=== PATIENT | female | born 1930 | race Caucasian/White ===

== ENCOUNTER → 2016-11-02 | Outpatient (CLI) | payer BC ==
[~2016-11-02] MED LIST: ALBU1AER9 INH; ASPI81TA28 PO; BECL0.3A INH; CALC-338 PO; COQ10100 PO; CRG3125 PO; FURO20TA PO; GLIM1TAB PO; LOVAZA PO; LSN40 PO; MULT-506 PO; OMEG1CAP71 PO; PRED1SUS3 OPR; WARF-246 PO; WARF-281 PO
[2016-11-02 13:33] LABS: ALT/SGPT 20 U/L (12-78); AST/SGOT 15 U/L (15-37); BLOOD UREA NITROGEN 19 mg/dl (7-18); BUN/CREATININE RATIO 22.4 (10-20); CALCIUM 8.8 mg/dl (8.5-10.1); CARBON DIOXIDE 32 mmol/L (21-32); CHLORIDE 104 mmol/L (98-107); CREATININE 0.85 mg/dl (0.60-1.20); GLUCOSE 105 mg/dl (70-99); POTASSIUM 4.1 mmol/L (3.5-5.1); SODIUM 142 mmol/L (136-145)
[2016-11-02 13:36] LABS: ALB/GLOB RATIO 1.1 (0.9-2); ALKALINE PHOSPHATASE 85 U/L (45-117); CHOLESTEROL 253 mg/dl (0-200); CHOLESTEROL/HDL RATIO 5.2; ESTIMATED AVERAGE GLUCOSE 151 mg/dl; HA1C FLAG Normal (Normal); HDL CHOLESTEROL 49 mg/dl; LDL CHOLESTEROL CALCULATED 171 mg/dl; TRIGLYCERIDES 163 mg/dl (0-150); VERY LOW DENSITY LIPOPROT CALC 33 mg/dl
--- NOTE | 2016-11-10 10:39 | CODING QUERY MEDICAL NECESSITY ---
SUPPORTING DIAGNOSIS NEEDED A supporting diagnosis is required for the test/procedure performed on this patient in order for us to be reimbursed by the patient's insurance. Please provide a supporting diagnosis for the following test/procedure listed below next to the test name along with your signature. *If there is no additional diagnosis for this patient that would support the following test/procedure please document that below next to the test/procedure. Test(s)/Procedure(s) that require a supporting diagnosis: DOS 11/02 * Hba1c DIAGNOSIS: Provider Signature: Date: Thank you Tanya Barnes Health Information Management Once completed, please kindly fax back to [phone] For questions please call [phone]
== END | disposition home or self-care (01) ==
LOC: C.LABMFLN 08:54
PROVIDERS: ATTEND Family Medicine
DX: I48.91 Unspecified atrial fibrillation (principal); I10 Essential (primary) hypertension; E78.5 Hyperlipidemia, unspecified; A04.7 Enterocolitis due to Clostridium difficile

== ENCOUNTER → 2017-03-06 | Outpatient (CLI) | payer BC ==
[2017-03-06 18:23] LABS: BLOOD UREA NITROGEN 15 mg/dl (7-18); BUN/CREATININE RATIO 21.8 (10-20); CALCIUM 9.4 mg/dl (8.5-10.1); CARBON DIOXIDE 29 mmol/L (21-32); CHLORIDE 107 mmol/L (98-107); GLUCOSE 108 mg/dl (70-99); POTASSIUM 4.4 mmol/L (3.5-5.1); SODIUM 141 mmol/L (136-145)
[2017-03-06 18:39] LABS: BASO % 0.4 %; BASO ABS # 0.02 K/uL (0-0.2); COMPLETE YES; EOS % 1.2 %; HEMATOCRIT 37.2 % (37-47); IG% 0.2 %; LYMPH % 20.6 %; LYMPH ABS # 1.04 K/uL (1.2-3.4); MEAN CELL VOLUME 89.6 fL (80-100); MEAN CORPUSCULAR HEMOGLOBIN 28.4 pg (25-34); MEAN CORPUSCULAR HGB CONC 31.7 g/dl (32-36); MEAN PLATELET VOLUME 10.1 fL (7.4-10.4); MONO % 7.3 %; NEUT % 70.3 %; PLATELET COUNT 277 K/uL (130-400); RED BLOOD COUNT 4.15 M/uL (4.2-5.4); WHITE BLOOD COUNT 5.04 K/uL (4.8-10.8)
== END | disposition home or self-care (01) ==
LOC: C.LABMFLN 12:32
PROVIDERS: ATTEND Family Medicine
DX: R19.7 Diarrhea, unspecified (principal)

== ENCOUNTER → 2017-03-14 | Outpatient (CLI) | payer BC ==
[2017-03-14 13:22] LABS: ALT/SGPT 23 U/L (12-78); AST/SGOT 15 U/L (15-37); BLOOD UREA NITROGEN 18 mg/dl (7-18); BUN/CREATININE RATIO 22.7 (10-20); CALCIUM 9.2 mg/dl (8.5-10.1); CARBON DIOXIDE 32 mmol/L (21-32); CHLORIDE 106 mmol/L (98-107); CREATININE 0.79 mg/dl (0.60-1.20); ESTIMATED AVERAGE GLUCOSE 137 mg/dl; GLUCOSE 102 mg/dl (70-99); HA1C FLAG Normal (Normal); POTASSIUM 4.3 mmol/L (3.5-5.1); SODIUM 141 mmol/L (136-145); TRIGLYCERIDES 124 mg/dl (0-150); VERY LOW DENSITY LIPOPROT CALC 25 mg/dl
[2017-03-14 13:23] LABS: ALB/GLOB RATIO 1.1 (0.9-2); ALKALINE PHOSPHATASE 98 U/L (45-117); CHOLESTEROL 225 mg/dl (0-200); CHOLESTEROL/HDL RATIO 4.2; HDL CHOLESTEROL 53 mg/dl; LDL CHOLESTEROL CALCULATED 147 mg/dl
[2017-03-14 13:28] LABS: BASO % 0.6 %; BASO ABS # 0.03 K/uL (0-0.2); COMPLETE YES; EOS % 2.1 %; HEMATOCRIT 36.9 % (37-47); IG% 0.2 %; LYMPH % 20.6 %; LYMPH ABS # 0.99 K/uL (1.2-3.4); MEAN CELL VOLUME 90.4 fL (80-100); MEAN CORPUSCULAR HEMOGLOBIN 29.2 pg (25-34); MEAN CORPUSCULAR HGB CONC 32.2 g/dl (32-36); MEAN PLATELET VOLUME 9.5 fL (7.4-10.4); MONO % 10.4 %; NEUT % 66.1 %; PLATELET COUNT 304 K/uL (130-400); RED BLOOD COUNT 4.08 M/uL (4.2-5.4); WHITE BLOOD COUNT 4.81 K/uL (4.8-10.8)
== END | disposition home or self-care (01) ==
LOC: C.LABMFLN 07:33
PROVIDERS: ATTEND Family Medicine
DX: I35.9 Nonrheumatic aortic valve disorder, unspecified (principal); I48.91 Unspecified atrial fibrillation; E11.40 Type 2 diabetes mellitus with diabetic neuropathy, unspecified

== ENCOUNTER → 2017-06-11 | Outpatient (CLI) | payer BC ==
[2017-06-11 12:47] LABS: BASO % 0.5 %; BASO ABS # 0.03 K/uL (0-0.2); COMPLETE YES; EOS % 1.4 %; HEMATOCRIT 33.7 % (37-47); IG% 0.2 %; LYMPH % 15.3 %; LYMPH ABS # 0.85 K/uL (1.2-3.4); MEAN CELL VOLUME 86.9 fL (80-100); MEAN CORPUSCULAR HEMOGLOBIN 27.8 pg (25-34); MEAN PLATELET VOLUME 9.8 fL (7.4-10.4); MONO % 9.2 %; NEUT % 73.4 %; PLATELET COUNT 276 K/uL (130-400); RED BLOOD COUNT 3.88 M/uL (4.2-5.4); WHITE BLOOD COUNT 5.54 K/uL (4.8-10.8)
== END | disposition home or self-care (01) ==
LOC: C.LABMFLN 13:59
PROVIDERS: ATTEND Family Medicine
DX: K92.2 Gastrointestinal hemorrhage, unspecified (principal); I48.91 Unspecified atrial fibrillation

== ENCOUNTER → 2017-07-18 | Outpatient (CLI) | payer BC ==
[2017-07-18 12:44] LABS: BASO % 0.9 %; BASO ABS # 0.04 K/uL (0-0.2); COMPLETE YES; EOS % 1.4 %; HEMATOCRIT 36.1 % (37-47); IG% 0.2 %; LYMPH % 20.6 %; MEAN CELL VOLUME 93.8 fL (80-100); MEAN CORPUSCULAR HEMOGLOBIN 29.1 pg (25-34); MEAN PLATELET VOLUME 9.8 fL (7.4-10.4); MONO % 12.1 %; NEUT % 64.8 %; PLATELET COUNT 271 K/uL (130-400); RED BLOOD COUNT 3.85 M/uL (4.2-5.4); WHITE BLOOD COUNT 4.37 K/uL (4.8-10.8)
[2017-07-18 13:22] LABS: ESTIMATED AVERAGE GLUCOSE 111 mg/dl; HA1C FLAG Normal (Normal)
[2017-07-18 13:27] LABS: ALT/SGPT 26 U/L (12-78); AST/SGOT 23 U/L (15-37); BLOOD UREA NITROGEN 16 mg/dl (7-18); BUN/CREATININE RATIO 22.2 (10-20); CALCIUM 9.2 mg/dl (8.5-10.1); CARBON DIOXIDE 31 mmol/L (21-32); CHLORIDE 105 mmol/L (98-107); CHOLESTEROL 154 mg/dl (0-200); CREATININE 0.74 mg/dl (0.60-1.20); GLUCOSE 95 mg/dl (70-99); POTASSIUM 4.6 mmol/L (3.5-5.1); SODIUM 141 mmol/L (136-145)
[2017-07-18 13:30] LABS: ALB/GLOB RATIO 1.1 (0.9-2); ALKALINE PHOSPHATASE 124 U/L (45-117); CHOLESTEROL/HDL RATIO 3.4; HDL CHOLESTEROL 45 mg/dl; LDL CHOLESTEROL CALCULATED 86 mg/dl; TRIGLYCERIDES 117 mg/dl (0-150); VERY LOW DENSITY LIPOPROT CALC 23 mg/dl
== END | disposition home or self-care (01) ==
LOC: C.LABMFLN 07:45
PROVIDERS: ATTEND Family Medicine
DX: E78.5 Hyperlipidemia, unspecified (principal); E11.40 Type 2 diabetes mellitus with diabetic neuropathy, unspecified; I25.10 Atherosclerotic heart disease of native coronary artery without angina pectoris

== ENCOUNTER → 2017-07-27 | Outpatient (CLI) | payer BC | END | disposition home or self-care (01) | LOC: C.LABMFLN 10:58 | PROVIDERS: ATTEND Family Medicine | DX: A04.72 Enterocolitis due to Clostridium difficile, not specified as recurrent (principal) ==

== ENCOUNTER → 2017-08-27 | Outpatient (CLI) | payer BC | LOC: C.LABMFLN 11:54 | PROVIDERS: ATTEND Family Medicine | DX: A04.72 Enterocolitis due to Clostridium difficile, not specified as recurrent (principal) ==

== ENCOUNTER → 2017-11-01 | Outpatient (CLI) | payer BC ==
[2017-11-01 13:09] LABS: BASO % 0.5 %; BASO ABS # 0.03 K/uL (0-0.2); EOS % 1.4 %; EOS ABS # 0.08 K/uL (0-0.5); HEMOGLOBIN 13.4 g/dL (12.0-16.0); LYMPH % 20.9 %; LYMPH ABS # 1.17 K/uL (1.2-3.4); MEAN CELL VOLUME 92.1 fL (80-100); MEAN CORPUSCULAR HEMOGLOBIN 29.4 pg (25-34); MEAN CORPUSCULAR HGB CONC 31.9 g/dl (32-36); MEAN PLATELET VOLUME 10.7 fL (7.4-10.4); MONO % 8.9 %; NEUT % 68.3 %; NEUT ABS # 3.83 K/uL (1.4-6.5); PLATELET COUNT 258 K/uL (130-400); RED CELL DISTRIBUTION WIDTH CV 13.7 % (11.5-14.5); WHITE BLOOD COUNT 5.61 K/uL (4.8-10.8)
[2017-11-01 13:44] LABS: HEMOGLOBIN A1C 5.9 % (4.5-5.6)
[2017-11-01 14:15] LABS: ALBUMIN 3.8 gm/dl (3.4-5.0); ALT/SGPT 17 U/L (12-78); BLOOD UREA NITROGEN 21 mg/dl (7-18); CALCIUM 9.5 mg/dl (8.5-10.1); CARBON DIOXIDE 32 mmol/L (21-32); CHOLESTEROL 172 mg/dl (0-200); CREATININE 0.72 mg/dl (0.60-1.20); GLUCOSE 110 mg/dl (70-99); POTASSIUM 4.6 mmol/L (3.5-5.1); SODIUM 140 mmol/L (136-145)
[2017-11-01 14:17] LABS: ALKALINE PHOSPHATASE 92 U/L (45-117); AST/SGOT 18 U/L (15-37); LDL CHOLESTEROL CALCULATED 100 mg/dl; TOTAL PROTEIN 6.7 gm/dl (6.4-8.2); TRANSFERRIN 256 mg/dl (200-360)
== END | disposition home or self-care (01) ==
LOC: C.LABMFLN 09:38
PROVIDERS: ATTEND Family Medicine
DX: I35.9 Nonrheumatic aortic valve disorder, unspecified (principal); I48.91 Unspecified atrial fibrillation; D50.9 Iron deficiency anemia, unspecified; J45.909 Unspecified asthma, uncomplicated; E11.40 Type 2 diabetes mellitus with diabetic neuropathy, unspecified

== ENCOUNTER 2017-11-18 06:06 | Inpatient (IN) | payer BC, OTHER ==
[2017-11-18] VITALS (9 sets, daily range): BP systolic 104–146; BP diastolic 63–77; PULSE 58–73; TEMP 36.4–36.8; O2SAT 93–100; Ht 152.4 cm; Wt 61.0 kg
[~2017-11-18] VITALS: Ht 152.4 cm; Wt 61.0 kg
[~2017-11-18 06:06] MED LIST changes: +AZIT-60 PO; +NYSS/ PO; +PRED10TA PO
[2017-11-18] MEDS ORDERED: ALBUT/IPRATROP 3MG/0.5MG NEB 3 ML VIAL ONE (06:12)
[2017-11-18] MEDS ORDERED: ALBUT/IPRATROP 3MG/0.5MG NEB 3 ML VIAL INH STA ×2 (06:29→07:03)
[2017-11-18 06:46] LABS: BASO % 0.2 %; BASO ABS # 0.02 K/uL (0-0.2); HEMATOCRIT 40.6 % (37-47); HEMOGLOBIN 13.6 g/dL (12.0-16.0); IG# 0.02 K/uL (0.00-0.02); LYMPH % 8.4 %; LYMPH ABS # 0.68 K/uL (1.2-3.4); MEAN CELL VOLUME 90.2 fL (80-100); MEAN CORPUSCULAR HEMOGLOBIN 30.2 pg (25-34); MEAN CORPUSCULAR HGB CONC 33.5 g/dl (32-36); MEAN PLATELET VOLUME 10.1 fL (7.4-10.4); MONO % 8.5 %; MONO ABS # 0.69 K/uL (0.11-0.59); NEUT % 82.7 %; NEUT ABS # 6.67 K/uL (1.4-6.5); PLATELET COUNT 228 K/uL (130-400); RED CELL DISTRIBUTION WIDTH CV 13.5 % (11.5-14.5); RED CELL DISTRIBUTION WIDTH SD 45.2 fL (36.4-46.3); WHITE BLOOD COUNT 8.08 K/uL (4.8-10.8)
[2017-11-18] MEDS ORDERED: VNTHFA/IN INH (06:47)
[2017-11-18] MEDS ORDERED: WARF-284 PO (06:48)
[2017-11-18 06:52] LABS: CREATININE 0.97 mg/dl (0.60-1.20)
[2017-11-18] MEDS ORDERED: CARV6.25 PO (06:52)
[2017-11-18] MEDS ORDERED: CALC-5 PO (06:52)
[2017-11-18] MEDS ORDERED: WARF-237 PO (06:52)
[2017-11-18 06:53] LABS: ALBUMIN 3.9 gm/dl (3.4-5.0); CALCIUM 9.5 mg/dl (8.5-10.1)
[2017-11-18] MEDS ORDERED: MULT-513 PO (06:53)
[2017-11-18] MEDS ORDERED: COEN100C2 PO (06:53)
[2017-11-18] MEDS ORDERED: IPRASOL4 INH (06:54)
[2017-11-18] MEDS ORDERED: MOME16.7 PO (06:54)
[2017-11-18] MEDS ORDERED: SACC250C PO (06:55)
[2017-11-18 07:03] LABS: PTT PATIENT 40.4 SECONDS (21.0-31.0)
[2017-11-18] MEDS ORDERED: ACETAMINOPHEN 500 MG TAB PO STA (07:03)
[2017-11-18] MEDS ORDERED: METHYLPREDNISOLONE 125 MG VIAL IV STA (07:03)
[2017-11-18 07:04] LABS: TOTAL PROTEIN 8.1 gm/dl (6.4-8.2)
--- NOTE | 2017-11-18 07:10 | DIAGNOSTIC IMAGING REPORT ---
CHEST ONE VIEW PORTABLE CLINICAL HISTORY: Respiratory difficulty COMPARISON STUDY: 12/04/2012 FINDINGS: There are postsurgical changes of a midline sternotomy and by valvular replacement. 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 The heart is enlarged. There is diffuse elevation of the interstitium consistent with mild congestive failure/fluid overload. There is no lobar consolidation.[ IMPRESSION: Cardiomegaly and radiographic evidence of mild congestive failure/fluid overload. Electronically signed by: Du Campbell M.D. 11/18/2017 7:09 AM Dictated Date/Time: 11/18/2017 7:08 AM
[2017-11-18 07:27] LABS: INR 3.6 (0.9-1.1)
[2017-11-18] MEDS ORDERED: LEVAQUIN 750MG / 150ML D5W IV STA (07:33)
[2017-11-18] MEDS ORDERED: SODIUM CHLORIDE 0.9% 1000ML 1,000 ML IV SCH (07:38)
[2017-11-18] MEDS ORDERED: ACETAMINOPHEN 325 MG TAB PO PRN (07:45)
[2017-11-18] MEDS ORDERED: ONDANSETRON INJ 2 MG/ML 2 ML VIAL IV PRN (07:45)
[2017-11-18] MEDS ORDERED: ALBUT/IPRATROP 3MG/0.5MG NEB 3 ML VIAL INH PRN (07:45)
[2017-11-18] MEDS ORDERED: ALBUTEROL HFA 8 GM INHALER INH PRN (07:45)
[2017-11-18] MEDS ORDERED: ALBUT/IPRATROP 3MG/0.5MG NEB 3 ML VIAL NEB PRN (07:45)
[2017-11-18] MEDS ORDERED: MAGNESIUM HYDROXIDE SUSP 30 ML UDC PO PRN (07:45)
[2017-11-18] MEDS ORDERED: ALUMINUM/MAGNESIUM/SIMETH (MAALOX MAX) 30 ML UDC PO PRN (07:45)
[2017-11-18 08:16] LABS: INFLUENZA B ANTIGEN Neg for Influ B (NEG)
[2017-11-18] MEDS ORDERED: FUROSEMIDE 40 MG/4 ML VIAL ONE (08:51)
--- NOTE | 2017-11-18 09:03 | EMERGENCY ROOM VISIT NOTE ---
History Report prepared by Luís: Rufina Murray Under the Supervision of: Dr. Xiang Chase M.D. First contact with patient: 06:38 Chief Complaint: RESPIRATORY PROBLEMS Stated Complaint: BREATHING DIFFICULTY Nursing Triage Summary: Patient arrived ALS for evaluation of shortness of breath. Patient was seen at her PCP and diagnosed with pneumonia. Patient given Zithromax and prednisone. Patient has albuterol inhaler and nebulizers at home. Hx asthma. Patient woke up today with increased shortness of breath. Patient has productive cough with yellow sputum. History of Present Illness The patient is an 87 year old female who presents to the Emergency Room with complaints of worsening SOB starting last week. She presents to the ED by EMS. The patient was seen by her PCP 3 days ago and was started on prednisone and Zithromax for possible pneumonia. She had a nebulizer treatment which helped her symptoms. She woke up this morning with worsened SOB. She is having a productive cough. Her abdomen feels bloated. She has a history of asthma and C diff. 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 She is not on oxygen at home. She has not taken any Tylenol for her fever. She has a history of heart valve replacement. Pt denies LOC, headache, chills, diaphoresis, visual changes, neck pain, chest pain, nausea, vomiting, abdominal pain, back pain, melena, hematochezia, urinary symptoms, numbness, weakness, lymphadenopathy, rash, or other complaints. Source of History: patient Onset: last week Position: other (breathing) Quality: other (SOB) Timing: worsening Modifying Factors (Relieving): other (nebulizer treatment) Associated Symptoms: + fevers, + cough Note: Pt reports abdominal bloating. Review of Systems See HPI for pertinent positives and negatives. A total of ten systems were reviewed and were otherwise negative. Past Medical & Surgical Medical Problems: (1) Acute respiratory failure with hypoxia (2) C. difficile diarrhea Family History Noncontributory secondary to age. Social History Smoking Status: Never Smoker Marital Status: Housing Status: lives with significant other Occupation Status: retired Current/Historical Medications Scheduled Azithromycin (Zithromax), MG PO UD Calcium-Magnesium W/ Vitamin D (Calcium 500), 500 MG PO DAILY Carvedilol (Coreg), 6.25 MG PO BID Coenzyme Q10 (Ubidecarenone) (Coenzyme Q-10), 100 MG PO DAILY Furosemide (Lasix), 20 MG PO QAM Lisinopril (Lisinopril), 40 MG PO QAM Mometasone Furoate (Inhalation (Asmanex Hfa), 1 PUFF PO BID Multivitamins/Minerals (Mvi With Minerals), 1 TAB PO DAILY Nystatin (Nystatin Suspension), 1 TSP PO QID Prednisone (Prednisone), MG PO UD Saccharomyces Boulardii (Florastor), 250 MG PO AC Warfarin Sodium (Warfarin Sodium), 7.5 MG PO DAILY Scheduled PRN Albuterol Hfa (Ventolin Hfa), 2 PUFFS INH Q4 PRN for SOB/Wheezing Ipratropium-Albuterol (Duoneb), 1 TREATMENT INH QID PRN for SOB/Wheezing Allergies Coded Allergies: Heparin (Verified Allergy, Severe, hx HIT 2004, 11/18/17) Atorvastatin (Verified Adverse Reaction, Severe, diarrhea and leg cramps, 11/18/17) Metformin (Verified Adverse Reaction, Severe, diarrhea, 11/18/17) Pitavastatin (Verified Adverse Reaction, Severe, joint pain, diarrhea, 11/18) Ezetimibe (Verified Adverse Reaction, Unknown, myalgias, increased LFT, 05/27) Simvastatin (Verified Adverse Reaction, Unknown, myalgias, increased LFTs , 03/22/15) Physical Exam Vital Signs Date Time Temp Pulse Resp B/P (MAP) Pulse Ox O2 Delivery O2 Flow Rate FiO2 11/18/17 08:49 60 16 131/65 94 Room Air 11/18/17 08:03 100 Nasal Cannula 3.0 11/18/17 08:01 65 11/18/17 08:00 60 16 154/77 93 Nasal Cannula 3.0 11/18/17 06:37 99 Nasal Cannula 3.0 11/18/17 06:37 62 22 178/84 100 Nasal Cannula 3.0 11/18/17 06:19 88 Room Air 11/18/17 06:18 87 Room Air 11/18/17 06:18 38.0 109 26 174/88 87 Room Air 11/18/17 06:13 96 Physical Exam GENERAL: Awake, alert, well-appearing, in no distress HENT: Normocephalic, atraumatic. Oropharynx unremarkable. EYES: Normal conjunctiva. Sclera non-icteric. NECK: Supple. No nuchal rigidity. FROM. No masses. RESPIRATORY: Clear to auscultation. Bilateral wheezes. No rales. Normal respiratory effort. CARDIAC: Normal rate. Normal rhythm. No murmurs. No rubs. Extremities warm and well perfused. Pulses equal. No JVD. GI: Soft, non-distended. No tenderness to palpation. No rebound or guarding. No masses. RECTAL: Deferred. MUSCULOSKELETAL: Atraumatic. Chest examination reveals no tenderness. The back is symmetrical on inspection without obvious abnormality. There is no CVA tenderness to palpation. No joint edema. LOWER EXTREMITIES: Calves are equal size bilaterally and non-tender. Trace edema. No discoloration. NEURO: Normal sensorium. No sensory or motor deficits noted. SKIN: No rash or jaundice noted. Medical Decision & Procedures ER Provider Diagnostic Interpretation: Radiology results as stated below per my review and radiologist interpretation: CHEST ONE VIEW PORTABLE CLINICAL HISTORY: Respiratory difficulty COMPARISON STUDY: 12/04/2012 FINDINGS: There are postsurgical changes of a midline sternotomy and by valvular replacement. 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 The heart is enlarged. There is diffuse elevation of the interstitium consistent with mild congestive failure/fluid overload. There is no lobar consolidation.[ IMPRESSION: Cardiomegaly and radiographic evidence of mild congestive failure/fluid overload. Electronically signed by: Du Campbell M.D. 11/18/2017 7:09 AM Dictated Date/Time: 11/18/2017 7:08 AM Laboratory Results 11/18/17 06:24 Red Blood Count 4.50, Mean Corpuscular Volume 90.2, Mean Corpuscular Hemoglobin 30.2, Mean Corpuscular Hemoglobin Concent 33.5, Mean Platelet Volume 10.1, Neutrophils (%) (Auto) 82.7, Lymphocytes (%) (Auto) 8.4, Monocytes (%) (Auto) 8.5, Eosinophils (%) (Auto) 0.0, Basophils (%) (Auto) 0.2, Neutrophils # (Auto) 6.67, Lymphocytes # (Auto) 0.68, Monocytes # (Auto) 0.69, Eosinophils # (Auto) 0.00, Basophils # (Auto) 0.02 11/18/17 06:24 Test 11/18/17 06:24 11/18/17 06:27 11/18/17 07:20 White Blood Count 8.08 K/uL (4.8-10.8) Red Blood Count 4.50 M/uL (4.2-5.4) Hemoglobin 13.6 g/dL (12.0-16.0) Hematocrit 40.6 % (37-47) Mean Corpuscular Volume 90.2 fL (80-100) Mean Corpuscular Hemoglobin 30.2 pg (25-34) Mean Corpuscular Hemoglobin Concent 33.5 g/dl (32-36) Platelet Count 228 K/uL (130-400) Mean Platelet Volume 10.1 fL (7.4-10.4) Neutrophils (%) (Auto) 82.7 % Lymphocytes (%) (Auto) 8.4 % Monocytes (%) (Auto) 8.5 % Eosinophils (%) (Auto) 0.0 % Basophils (%) (Auto) 0.2 % Neutrophils # (Auto) 6.67 K/uL (1.4-6.5) Lymphocytes # (Auto) 0.68 K/uL (1.2-3.4) Monocytes # (Auto) 0.69 K/uL (0.11-0.59) Eosinophils # (Auto) 0.00 K/uL (0-0.5) Basophils # (Auto) 0.02 K/uL (0-0.2) RDW Standard Deviation 45.2 fL (36.4-46.3) RDW Coefficient of Variation 13.5 % (11.5-14.5) Immature Granulocyte % (Auto) 0.2 % Immature Granulocyte # (Auto) 0.02 K/uL (0.00-0.02) Prothrombin Time 36.9 SECONDS (9.0-12.0) Prothromb Time International Ratio 3.6 (0.9-1.1) Activated Partial Thromboplast Time 40.4 SECONDS (21.0-31.0) Partial Thromboplastin Ratio 1.6 Anion Gap 6.0 mmol/L (3-11) Est Creatinine Clear Calc Drug Dose 36.3 ml/min Estimated GFR () 61.7 Estimated GFR (Non- 53.3 BUN/Creatinine Ratio 28.5 (10-20) Calcium Level 9.5 mg/dl (8.5-10.1) Magnesium Level 2.1 mg/dl (1.8-2.4) Total Bilirubin 0.5 mg/dl (0.2-1) Direct Bilirubin 0.2 mg/dl (0-0.2) Aspartate Amino Transf (AST/SGOT) 29 U/L (15-37) Alanine Aminotransferase (ALT/SGPT) 26 U/L (12-78) Alkaline Phosphatase 131 U/L (45-117) Total Protein 8.1 gm/dl (6.4-8.2) Albumin 3.9 gm/dl (3.4-5.0) Lipase 75 U/L (73-393) Thyroid Stimulating Hormone (TSH) 1.950 uIu/ml (0.300-4.500) Bedside Lactic Acid Venous 0.89 mmol/L (0.90-1.70) Influenza Type A Antigen Neg for Influ A (NEG) Influenza Type B Antigen Neg for Influ B (NEG) Laboratory results reviewed by me Medications Administered Medications (Trade) Dose Ordered Sig/Ariel Route Start Time Stop Time Status Last Admin Dose Admin Albuterol/ Ipratropium (Duoneb) 3 ml STK-MED ONCE .ROUTE 11/18/17 06:12 11/18/17 06:13 DC 11/18/17 06:12 3 ML Albuterol/ Ipratropium (Duoneb) 3 ml NOW STAT INH 11/18/17 07:03 11/18/17 07:04 DC 11/18/17 07:18 3 ML Methylprednisolone Sodium Succinate (Solu-Medrol IV) 125 mg NOW STAT IV 11/18/17 07:03 11/18/17 07:04 DC 11/18/17 07:19 125 MG Acetaminophen (Tylenol Tab) 1,000 mg NOW STAT PO 11/18/17 07:03 11/18/17 07:04 DC 11/18/17 07:19 1,000 MG Levofloxacin (Levaquin / D5W) 750 mg NOW STAT IV 11/18/17 07:33 11/18/17 07:34 DC 11/18/17 08:57 750 MG Furosemide (Lasix Inj) 40 mg STK-MED ONCE .ROUTE 11/18/17 08:51 11/18/17 08:52 DC 11/18/17 08:53 40 MG ECG Per My Interpretation Indication: SOB/dyspnea Rate (beats per minute): 65 Rhythm: other (paced rhythm) Findings: no acute ischemic change, no ectopy ED Course 0612: Duoneb 3 ml INH. 0658: The patient was evaluated in room A3. A complete history and physical exam was performed. 0703: Acetaminophen 1000 mg PO, Solu-Medrol IV 125 mg IV, Duoneb 3 ml INH. 0733: Levofloxacin 750 mg IV. 0737: I discussed the patient's case with Dr. Leo [facility] [place] hospitalist. The patient will be evaluated for further treatment and disposition. 0738: Upon reexamination, the patient was resting comfortably. I discussed the test results and treatment plan with her. The patient will be evaluated for further management. Medical Decision Prior records/ancillary studies reviewed. Triage Nursing notes reviewed and agree them. The patient's history was concerning for shortness of breath. Differential diagnosis: Etiologies such as pneumonia, COPD, reactive airway disease, CHF, cardiac ischemia, pulmonary embolism, pneumothorax, musculoskeletal, infections, gastrointestinal, as well as others were entertained. Physical examination: As above. The patient was requiring supplemental oxygen. She was febrile. ER treatment provided: Tylenol DuoNeb 2 Solu-Medrol IV level Supplemental oxygen On reassessment the patient felt better. Diagnostic interpretation by me: The electrocardiogram was negative for pathologic change. The labs revealed an unremarkable CBC and chemistry panel. Cardiac markers negative. INR slightly supratherapeutic. The patient has a negative influenza test. Imaging studies: Chest x-ray as above. The patient has fever, wheezing, cough and is hypoxic. She may have a partially treated pneumonia or pneumonitis. IV Levaquin was given. Bronchodilators and steroids were administered. She will need further treatment in the hospital. Consultation: A consultation was placed with the hospitalist. The case was discussed and diagnostics were reviewed. The patient was evaluated in the ER for further treatment. Medication Reconcilliation Current Medication List: was personally reviewed by me Blood Pressure Screening Patient's blood pressure: Elevated blood pressure Blood pressure disposition: Referred to PCP Consults Time Called: 0735 Consulting Physician: Dr. Leo [facility] [place] hospitalist Returned Call: 0737 Discussed the patient's case. The patient will be evaluated for further treatment and disposition. Impression Primary Impression: Hypoxia Additional Impressions: SOB (shortness of breath) Fever Reactive airway disease Scribe Attestation The scribe's documentation has been prepared under my direction and personally reviewed by me in its entirety. I confirm that the note above accurately reflects all work, treatment, procedures, and medical decision making performed by me. Departure Information Dispostion Being Evaluated By Hospitalist Referrals Eusebio Gipson M.D. (PCP) Patient Instructions My [facility] Problem Qualifiers
[2017-11-18] MEDS ORDERED: FUROSEMIDE INJ 40 MG in SYRINGE 0 ML IV ONE (09:21)
--- NOTE | 2017-11-18 09:34 | History and Physical ---
History & Physical Date & Time of Service: Nov 18, 2017 at 09:26 Chief Complaint: Acute Respiratory Failure With Hypoxia Primary Care Physician: Eusebio Gipson M.D. History of Present Illness 87-year-old female presents with acute hypoxic respiratory failure. She is a history of asthma/COPD and she was attempted to be treated as an outpatient with oral steroids and antibiotics. 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 The patient's had a productive cough and shortness of breath for approximately 1-2 weeks she is already fevers at home when she presented this morning she had had a worsened episode of respiratory distress and she was defined to be hypoxic on presentation there is no overt infiltrates on her chest x-ray but she does have some bilateral congestive change she is improved with oxygen supplementation and nebulized medications in the ER was given dose of levofloxacin Past Medical/Surgical History Medical Problems: (1) Acute respiratory failure with hypoxia (2) C. difficile diarrhea 3. Atrial fibrillation 4. 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 Permanent pacemaker 6. H IT 7. Appendectomy 8. Cholecystectomy 9. Oophorectomy 10. Diet-controlled diabetes 11. Hypertension 12. Dyslipidemia 13. Previous history of subdural hematoma 14. Previous history of GI bleed Social History Smoking Status: Never Smoker Smokeless Tobacco Use: No Alcohol Use: none Drug Use: none Marital Status: Occupational Status: retired Immunizations History of Influenza Vaccine: Yes Influenza Vaccine Date: May 21, 2009 History of Tetanus Vaccine?: Yes History of Pneumococcal: Yes Pneumococcal Date: May 25, 2004 History of Hepatitis B Vaccine: No Allergies Coded Allergies: Heparin (Verified Allergy, Severe, hx HIT 2004, 11/18/17) Atorvastatin (Verified Adverse Reaction, Severe, diarrhea and leg cramps, 11/18/17) Metformin (Verified Adverse Reaction, Severe, diarrhea, 11/18/17) Pitavastatin (Verified Adverse Reaction, Severe, joint pain, diarrhea, 11/18) Ezetimibe (Verified Adverse Reaction, Unknown, myalgias, increased LFT, 05/27) Simvastatin (Verified Adverse Reaction, Unknown, myalgias, increased LFTs , 03/22/15) Home Medications Scheduled Azithromycin (Zithromax), MG PO UD Calcium-Magnesium W/ Vitamin D (Calcium 500), 500 MG PO DAILY Carvedilol (Coreg), 6.25 MG PO BID Coenzyme Q10 (Ubidecarenone) (Coenzyme Q-10), 100 MG PO DAILY Furosemide (Lasix), 20 MG PO QAM Lisinopril (Lisinopril), 40 MG PO QAM Mometasone Furoate (Inhalation (Asmanex Hfa), 1 PUFF PO BID Multivitamins/Minerals (Mvi With Minerals), 1 TAB PO DAILY Nystatin (Nystatin Suspension), 1 TSP PO QID Prednisone (Prednisone), MG PO UD Saccharomyces Boulardii (Florastor), 250 MG PO AC Warfarin Sodium (Warfarin Sodium), 7.5 MG PO DAILY Scheduled PRN Albuterol Hfa (Ventolin Hfa), 2 PUFFS INH Q4 PRN for SOB/Wheezing Ipratropium-Albuterol (Duoneb), 1 TREATMENT INH QID PRN for SOB/Wheezing Review of Systems ROS: well nourished well developed. No double vision blurry vision No problems with speech or swallowing No palpitations, chest pain or pressure Patient's markedly short of breath with a loose productive cough No abdominal pain nausea vomiting diarrhea changes in appetite or weight No burning urine urine frequency or changes in color No focal joint pain or muscle pain No skin rashes or oral lesions No unusual bruising or bleeding No focused back pain or numbness or loss of strength No changes in memory or confusion Physical Exam Vital Signs Date Time Temp Pulse Resp B/P (MAP) Pulse Ox O2 Delivery O2 Flow Rate FiO2 11/18/17 08:49 60 16 131/65 94 Room Air 11/18/17 08:03 100 Nasal Cannula 3.0 11/18/17 08:01 65 11/18/17 08:00 60 16 154/77 93 Nasal Cannula 3.0 11/18/17 06:37 99 Nasal Cannula 3.0 11/18/17 06:37 62 22 178/84 100 Nasal Cannula 3.0 11/18/17 06:19 88 Room Air 11/18/17 06:18 87 Room Air 11/18/17 06:18 38.0 109 26 174/88 87 Room Air 11/18/17 06:13 96 General Appearance: WD/WN, + moderate distress Head: normocephalic, atraumatic Eyes: normal inspection, sclerae normal ENT: hearing grossly normal, pharynx normal Neck: supple, no JVD Respiratory/Chest: chest non-tender, + decreased breath sounds, + accessory muscle use, + wheezing Cardiovascular: regular rate, rhythm (Although history of atrial fibrillation) , + systolic murmur Abdomen/GI: normal bowel sounds, non tender, soft Back: no CVA tenderness, normal range of motion Extremities/Musculoskelatal: normal inspection, no calf tenderness, no pedal edema Neurologic/Psych: alert, oriented x 3 Skin: normal color, warm/dry, no rash Diagnostics Laboratory Results Results Past 24 Hours Test 11/18/17 06:24 11/18/17 06:27 11/18/17 07:20 Range/Units White Blood Count 8.08 4.8-10.8 K/uL Red Blood Count 4.50 4.2-5.4 M/uL Hemoglobin 13.6 12.0-16.0 g/dL Hematocrit 40.6 37-47 % Mean Corpuscular Volume 90.2 80-100 fL Mean Corpuscular Hemoglobin 30.2 25-34 pg Mean Corpuscular Hemoglobin Concent 33.5 32-36 g/dl Platelet Count 228 130-400 K/uL Mean Platelet Volume 10.1 7.4-10.4 fL Neutrophils (%) (Auto) 82.7 % Lymphocytes (%) (Auto) 8.4 % Monocytes (%) (Auto) 8.5 % Eosinophils (%) (Auto) 0.0 % Basophils (%) (Auto) 0.2 % Neutrophils # (Auto) 6.67 1.4-6.5 K/uL Lymphocytes # (Auto) 0.68 1.2-3.4 K/uL Monocytes # (Auto) 0.69 0.11-0.59 K/uL Eosinophils # (Auto) 0.00 0-0.5 K/uL Basophils # (Auto) 0.02 0-0.2 K/uL RDW Standard Deviation 45.2 36.4-46.3 fL RDW Coefficient of Variation 13.5 11.5-14.5 % Immature Granulocyte % (Auto) 0.2 % Immature Granulocyte # (Auto) 0.02 0.00-0.02 K/uL Prothrombin Time 36.9 9.0-12.0 SECONDS Prothromb Time International Ratio 3.6 0.9-1.1 Activated Partial Thromboplast Time 40.4 21.0-31.0 SECONDS Partial Thromboplastin Ratio 1.6 Sodium Level 135 136-145 mmol/L Potassium Level 4.0 3.5-5.1 mmol/L Chloride Level 99 98-107 mmol/L Carbon Dioxide Level 30 21-32 mmol/L Anion Gap 6.0 3-11 mmol/L Blood Urea Nitrogen 28 7-18 mg/dl Creatinine 0.97 0.60-1.20 mg/dl Est Creatinine Clear Calc Drug Dose 36.3 ml/min Estimated GFR () 61.7 Estimated GFR (Non- 53.3 BUN/Creatinine Ratio 28.5 10-20 Random Glucose 85 70-99 mg/dl Calcium Level 9.5 8.5-10.1 mg/dl Magnesium Level 2.1 1.8-2.4 mg/dl Total Bilirubin 0.5 0.2-1 mg/dl Direct Bilirubin 0.2 0-0.2 mg/dl Aspartate Amino Transf (AST/SGOT) 29 15-37 U/L Alanine Aminotransferase (ALT/SGPT) 26 12-78 U/L Alkaline Phosphatase 131 45-117 U/L Total Protein 8.1 6.4-8.2 gm/dl Albumin 3.9 3.4-5.0 gm/dl Lipase 75 73-393 U/L Thyroid Stimulating Hormone (TSH) 1.950 0.300-4.500 uIu/ml Bedside Lactic Acid Venous 0.89 0.90-1.70 mmol/L Influenza Type A Antigen Neg for Influ A NEG Influenza Type B Antigen Neg for Influ B NEG Microbiology Results 11/18/17 Blood Culture, Received Pending 11/18/17 Blood Culture, Received Pending other (: Cardiomegaly and radiographic evidence of mild congestive) other (Atrially sensed ventricularly paced rhythm) Impression Assessment and Plan 87-year-old with acute and chronic respiratory failure now with hypoxia For the hypoxia show supplemental oxygen, for her chronic respiratory failure now with acute phase we will have nebulized medications including formoterol, duo nebs and she will of intravenous steroids For possibility of concurrent bronchitis levofloxacin will be continued For the possibility of acute on chronic diastolic heart failure due to her valvular heart disease she will be given a dose of intravenous Lasix and then continue with her usual oral Lasix as well as carvedilol and lisinopril For diet-controlled diabetes as she is now having intravenous steroids will have insulin sliding scale and diabetic diet For anticoagulation due to atrial fibrillation her INR is elevated on presentation will hold her warfarin recheck and follow it restart when appropriate For his recurrent C. difficile infection there is no active diarrhea at this time will continue her Florastor DVT prevention is her INR being elevated and mechanical means Advanced Directives Existing Living Will: Yes Existing Power of Car Painter: Yes Resuscitation Status VTE Prophylaxis Will order VTE Prophylaxis: Yes
[2017-11-18] MEDS: CEROVITE ADV FORMULA TAB PO SCH (10:00)
[2017-11-18] MEDS ORDERED: LEVOFLOXACIN CONSULT ACTIVE PRN (12:00)
[2017-11-18] MEDS: CARVEDILOL 6.25 MG TAB PO SCH ×2 (12:24→21:07)
[2017-11-18] MEDS: LISINOPRIL 40 MG TAB PO SCH (12:24)
[2017-11-18] MEDS: SACCHAROMYCES BOUL (FLORASTOR) 250 MG CAP PO SCH ×2 (12:25→17:08)
[2017-11-18] MEDS: NYSTATIN SUSP 500,000 U/5 ML UDC PO SCH ×3 (12:29→21:07)
[2017-11-18] MEDS ORDERED: NYSTATIN SUSP 500,000 U/5 ML UDC PO SCH (13:00)
[2017-11-18] MEDS: INSULIN ASPART 100 UNITS/ML 3 ML PEN SC SCH ×3 (13:46→21:11)
[2017-11-18] MEDS: FORMOTEROL FUMA NEBULIZER SOLN 20 MCG/2 ML VIAL INH SCH (19:12)
[2017-11-18] MEDS: METHYLPREDNISOLONE IV 40 MG in SYRINGE 0 ML IV SCH (21:06)
[2017-11-19] VITALS (9 sets, daily range): BP systolic 136–174; BP diastolic 67–81; PULSE 56–68; TEMP 36.3–36.9; O2SAT 91–100
[2017-11-19 04:55] LABS: HEMATOCRIT 36.6 % (37-47); HEMOGLOBIN 12.1 g/dL (12.0-16.0); MEAN CELL VOLUME 89.7 fL (80-100); MEAN CORPUSCULAR HEMOGLOBIN 29.7 pg (25-34); MEAN CORPUSCULAR HGB CONC 33.1 g/dl (32-36); MEAN PLATELET VOLUME 10.3 fL (7.4-10.4); PLATELET COUNT 218 K/uL (130-400); RED CELL DISTRIBUTION WIDTH CV 13.4 % (11.5-14.5); RED CELL DISTRIBUTION WIDTH SD 44.4 fL (36.4-46.3)
[2017-11-19 05:17] LABS: CALCIUM 8.8 mg/dl (8.5-10.1); CREATININE 1.04 mg/dl (0.60-1.20); POTASSIUM 4.2 mmol/L (3.5-5.1)
[2017-11-19 05:18] LABS: INR 3.8 (0.9-1.1)
[2017-11-19] MEDS: SACCHAROMYCES BOUL (FLORASTOR) 250 MG CAP PO SCH ×3 (06:23→17:23)
[2017-11-19] MEDS: FORMOTEROL FUMA NEBULIZER SOLN 20 MCG/2 ML VIAL INH SCH ×2 (07:26→19:12)
[2017-11-19] MEDS: LISINOPRIL 40 MG TAB PO SCH (08:17)
[2017-11-19] MEDS: FUROSEMIDE 20 MG TAB PO SCH (08:17)
[2017-11-19] MEDS: NYSTATIN SUSP 500,000 U/5 ML UDC PO SCH ×4 (08:17→21:14)
[2017-11-19] MEDS: METHYLPREDNISOLONE IV 40 MG in SYRINGE 0 ML IV SCH ×2 (08:18→21:16)
[2017-11-19] MEDS: INSULIN ASPART 100 UNITS/ML 3 ML PEN SC SCH ×4 (08:18→21:14)
[2017-11-19] MEDS: CARVEDILOL 6.25 MG TAB PO SCH ×2 (08:19→21:00)
[2017-11-19] MEDS: CEROVITE ADV FORMULA TAB PO SCH (08:20)
--- NOTE | 2017-11-19 11:40 | Hospitalist Progress Note ---
Hospitalist Progress Note Date of Service Nov 19, 2017. (No Wang ., PA-C) Subjective Pt evaluation today including: conversation w/ patient, physical exam, chart review, lab review, review of studies, review of inpatient medication list Pain: None PO Intake: Tolerating PO diet Voiding: no voiding problems Patient reports feeling better. She is still on supplemental oxygen, although she has been weaning down. She does not wear oxygen at home. She reports a cough that is now nonproductive with associated wheezing. She denies any dysuria. She has a h/o C. diff and is currently on Levaquin but denies any diarrhea so far. The patient denies fevers, chills, sweats, chest pain, palpitations, claudication, shortness of breath, nausea, vomiting, abdominal pain, dysuria, hematuria, urinary retention, paralysis, weakness, numbness and tingling. Additional Comments: See HPI for pertinent positives and negatives. All other systems reviewed and negative. (No Wang ., PA-C) Objective Vital Signs Date Time Temp Pulse Resp B/P (MAP) Pulse Ox O2 Delivery O2 Flow Rate FiO2 11/19/17 11:20 36.9 61 18 150/74 (99) 93 11/19/17 08:00 Nasal Cannula 3.0 11/19/17 07:26 68 16 97 Nasal Cannula 3.0 11/19/17 07:26 36.4 63 16 169/77 (107) 98 Nasal Cannula 3.0 11/19/17 04:27 36.6 58 18 152/74 (100) 97 Nasal Cannula 3.0 11/19/17 04:05 Nasal Cannula 3.0 11/19/17 00:23 36.7 62 18 161/78 (105) 97 Nasal Cannula 3.0 11/19/17 00:15 Nasal Cannula 3.0 11/18/17 21:05 61 141/74 (96) 11/18/17 20:15 Nasal Cannula 3.0 11/18/17 19:13 58 16 97 Nasal Cannula 3.0 11/18/17 17:58 36.5 62 20 114/69 (84) 95 Nasal Cannula 2.5 11/18/17 16:00 Nasal Cannula 3.0 11/18/17 16:00 36.8 59 16 104/63 (77) 93 11/18/17 12:23 60 118/77 (91) 11/18/17 12:00 Nasal Cannula 3.0 (No Wang PA-C) Physical Exam Notes: General appearance: Well-developed, well-nourished, no apparent distress Head: Normocephalic, atraumatic Eyes: Normal inspection, PERRL, EOMI ENT: Normal ENT inspection, hearing grossly normal, pharynx normal Neck: Supple, no JVD, trachea midline Respiratory/Chest: +Wheezing throughout, slight fine crackles in bases. Normal breath sounds, no respiratory distress Cardiovascular: +Murmur. Regular rate & rhythm, no gallop Abdomen/GI: Normal bowel sounds, non-tender, soft Extremities/Musculoskeletal: +Trace pitting edema. Normal inspection, no calf tenderness Neurological/Psych: Alert, normal mood/affect, oriented x 3 Skin: Normal color, warm/dry, no rash (No Wang, YESENIA-C) Laboratory Results Last 24 Hours Test 11/18/17 11:38 11/18/17 16:36 11/18/17 19:57 11/19/17 04:16 Bedside Glucose 183 mg/dl 148 mg/dl 206 mg/dl White Blood Count 4.00 K/uL Red Blood Count 4.08 M/uL Hemoglobin 12.1 g/dL Hematocrit 36.6 % Mean Corpuscular Volume 89.7 fL Mean Corpuscular Hemoglobin 29.7 pg Mean Corpuscular Hemoglobin Concent 33.1 g/dl RDW Standard Deviation 44.4 fL RDW Coefficient of Variation 13.4 % Platelet Count 218 K/uL Mean Platelet Volume 10.3 fL Prothrombin Time 38.5 SECONDS Prothromb Time International Ratio 3.8 Sodium Level 139 mmol/L Potassium Level 4.2 mmol/L Chloride Level 99 mmol/L Carbon Dioxide Level 33 mmol/L Anion Gap 7.0 mmol/L Blood Urea Nitrogen 33 mg/dl Creatinine 1.04 mg/dl Est Creatinine Clear Calc Drug Dose 33.8 ml/min Estimated GFR () 56.7 Estimated GFR (Non- 49.0 BUN/Creatinine Ratio 31.6 Random Glucose 165 mg/dl Calcium Level 8.8 mg/dl Test 11/19/17 07:26 Bedside Glucose 134 mg/dl (oN Wang PA-C) Assessment and Plan 87 y/o female with a history of CAD, HTN, HLD, a-fib, chronic diastolic CHF, complete heart block s/p pacemaker, asthma, DM II, and iron deficiency anemia who presents with acute respiratory failure with hypoxia. Acute respiratory failure w/hypoxia due to asthma exacerbation/bronchitis-- improving -Admit to telemetry. No acute events overnight. Pt in paced rhythm with PVCs, HR 60s. -O2 by protocol. Currently on 1L NC. Does NOT wear oxygen at home. -Continue Perforomist BID. Will schedule DuoNebs QIDR -Continue Solu-Medrol 40 mg IV q12h -Start Mucinex 1200 mg PO BID, flutter valve and incentive spirometry -Levaquin adjusted to bronchitis dosing, Levaquin 250 mg IV q24h (renal dosing) Acute on chronic diastolic CHF--improving -Received Lasix 40 mg IV x 1 yesterday -UO 3250 cc, -2570 cc 11/18 -Already received home dose Lasix 20 mg PO today, will give additional Lasix 20 mg IV x 1 -Continue to monitor I's & O's, daily weight -Continue beta elizabeth, MADY UTI POA--stable, asymptomatic -UA positive bacteria -Urine culture GNR, sensitivities pending -Levaquin as above CAD, HTN, HLD--stable -Continue Coreg 6.25 mg PO BID, lisinopril 40 mg PO qd A-fib,supratherapeutic INR--stable, paced rhythm -Beta elizabeth as above -Continue to hold warfarin -INR 3.8 on 11/19, up from 3.6 DM II, diet controlled--stable -Insulin sliding scale due to steroids -Check BSGs q ac and qhs -HgbA1c 5.9 on 11/01/17 DVT prophylaxis -Hold chemical ppx due to supratherapeutic INR -SCDs Code Status -Level I, FULL RESUSCITATION STATUS (No Wang ., MATTHEWC) I personally interviewed and examined the patient. I agree with history of present illness and physical exam mentioned above, I also performed my own history taking and examination. Past medical history and review of system has been obtained by myself I reviewed all pertinent labs and studies Reviewed current medications I discussed and formulated of the assessment and plan mentioned above. Please refer to the Summary mentioned below. 87-year-old female with past medical history of dyslipidemia, hypertension, atrial fibrillation, chronic diastolic congestive heart failure, complete heart block status post pacemaker, asthma, diabetes mellitus type 2, iron deficiency anemia and history of CAD presented to the hospital with acute respiratory failure with hypoxemia secondary to asthma exacerbation. Patient was admitted to the hospital started on oxygen supplement, bronchodilators, steroids. Also patient was started on Lasix for diuresis as patient did have an element of congestive heart failure also she was found to have a UTI present on admission. , Started on levofloxacin. Lactinex for C. difficile prophylaxis. continue home medications General Appearance: not in acute distress Eyes: normal Sclerae, extraocular muscle intact ENT: hearing grossly normal Neck: supple Respiratory/Chest:decrease air entry bilateral ,no severe respiratory distress , no accessory muscle use, positive for scattered rhonchi Cardiovascular: regular rate, rhythm, no murmur Abdomen: non tender, soft, no masses Extremities: no edema musculoskeletal: no significant swelling or inflammation in any joint Neurologic/Psychiatric: Awake alert oriented times place and person moves all extremities sensation intact cranial nerves II-12 appear to be intact Skin: normal color, warm/dry, no rash Skin: normal color, warm/dry, no rash Taylor Garza MD, [facility] hospitalist group (Taylor Chen MD)
[2017-11-19] MEDS ORDERED: FUROSEMIDE INJ 20 MG in SYRINGE 0 ML IV ONE (12:30)
[2017-11-19] MEDS: ALBUT/IPRATROP 3MG/0.5MG NEB 3 ML VIAL INH SCH ×2 (15:42→19:12)
[2017-11-19 18:59] LABS: POTASSIUM 3.8 mmol/L (3.5-5.1)
[2017-11-19] MEDS: GUAIFENESIN 600 MG TABCR PO SCH (21:15)
[2017-11-20] VITALS (14 sets, daily range): BP systolic 147–171; BP diastolic 73–91; PULSE 60–99; TEMP 36.3–36.8; O2SAT 90–94
[2017-11-20 04:47] LABS: HEMATOCRIT 37.6 % (37-47); HEMOGLOBIN 12.4 g/dL (12.0-16.0); MEAN CELL VOLUME 88.9 fL (80-100); MEAN CORPUSCULAR HEMOGLOBIN 29.3 pg (25-34); MEAN PLATELET VOLUME 10.1 fL (7.4-10.4); PLATELET COUNT 236 K/uL (130-400); RED CELL DISTRIBUTION WIDTH CV 13.4 % (11.5-14.5); RED CELL DISTRIBUTION WIDTH SD 44.1 fL (36.4-46.3); WHITE BLOOD COUNT 5.71 K/uL (4.8-10.8)
[2017-11-20 05:09] LABS: INR 3.3 (0.9-1.1)
[2017-11-20 05:13] LABS: CALCIUM 8.7 mg/dl (8.5-10.1); CREATININE 1.03 mg/dl (0.60-1.20); POTASSIUM 3.8 mmol/L (3.5-5.1)
[2017-11-20] MEDS: SACCHAROMYCES BOUL (FLORASTOR) 250 MG CAP PO SCH ×3 (06:23→16:58)
[2017-11-20] MEDS: FORMOTEROL FUMA NEBULIZER SOLN 20 MCG/2 ML VIAL INH SCH ×2 (07:12→19:27)
[2017-11-20] MEDS: ALBUT/IPRATROP 3MG/0.5MG NEB 3 ML VIAL INH SCH ×4 (07:16→19:27)
[2017-11-20] MEDS ORDERED: LEVAQUIN 750MG / 150ML D5W IV SCH (08:00)
[2017-11-20] MEDS: LEVOFLOXACIN / D5W 250 MG in PREMIXED IN D5W 50 ML IV SCH (08:53)
[2017-11-20] MEDS: CARVEDILOL 6.25 MG TAB PO SCH ×2 (08:54→20:49)
[2017-11-20] MEDS: GUAIFENESIN 600 MG TABCR PO SCH ×2 (08:55→20:49)
[2017-11-20] MEDS: CEROVITE ADV FORMULA TAB PO SCH (08:55)
[2017-11-20] MEDS: NYSTATIN SUSP 500,000 U/5 ML UDC PO SCH ×4 (08:55→20:48)
[2017-11-20] MEDS: METHYLPREDNISOLONE IV 40 MG in SYRINGE 0 ML IV SCH (08:55)
[2017-11-20] MEDS: LISINOPRIL 40 MG TAB PO SCH (08:55)
[2017-11-20] MEDS: LACTOBACILLUS ACIDOPHILUS (FLORANEX) TAB PO SCH ×3 (08:59→16:58)
[2017-11-20] MEDS: INSULIN ASPART 100 UNITS/ML 3 ML PEN SC SCH ×4 (08:59→20:51)
[2017-11-20] MEDS: FUROSEMIDE 20 MG TAB PO SCH (09:00)
[2017-11-20] MEDS: CEFTRIAXONE SOD INJ 1 GM in DEXTROSE 5% ADD-VANTAGE 50ML 50 ML IV SCH (10:16)
--- NOTE | 2017-11-20 11:10 | Hospitalist Progress Note ---
Hospitalist Progress Note Date of Service Nov 20, 2017. (No Wang ., MATTHEWC) Subjective Pt evaluation today including: conversation w/ patient, physical exam, chart review, lab review, review of inpatient medication list Pain: None PO Intake: Tolerating PO diet Voiding: no voiding problems Patient reports feeling better. She denies any shortness of breath. She states her cough is now improved/less frequent, and now when she does cough it is productive with yellowish sputum. She denies wheezing. She denies any hematuria, dysuria, or foul smelling urine. She notes she had some palpitations yesterday afternoon that quickly resolved. The patient denies fevers, chills, sweats, chest pain, claudication, wheezing, shortness of breath , nausea, vomiting, abdominal pain, dysuria, hematuria, urinary retention, paralysis, weakness, numbness and tingling. Additional Comments: See HPI for pertinent positives and negatives. All other systems reviewed and negative. (No Wang ., YESENIA-C) Objective Vital Signs Date Time Temp Pulse Resp B/P (MAP) Pulse Ox O2 Delivery O2 Flow Rate FiO2 11/20/17 08:53 96 151/73 (99) 11/20/17 08:00 93 Room Air 11/20/17 07:13 61 15 91 Room Air 11/20/17 07:10 36.7 99 16 147/84 (105) 91 Room Air 11/20/17 04:43 36.4 60 20 147/76 (99) 92 Room Air 11/20/17 04:05 Nasal Cannula 3.0 11/20/17 00:15 Nasal Cannula 3.0 11/19/17 22:51 36.3 66 18 136/76 (96) 91 Room Air 11/19/17 20:00 Nasal Cannula 3.0 11/19/17 19:32 36.5 56 20 174/81 (112) 100 Room Air 11/19/17 19:13 60 16 96 Nasal Cannula 11/19/17 16:00 Nasal Cannula 3.0 11/19/17 15:42 65 16 97 Nasal Cannula 0.5 11/19/17 15:06 36.7 60 18 138/67 (90) 93 11/19/17 12:00 Nasal Cannula 3.0 11/19/17 11:20 36.9 61 18 150/74 (99) 93 (No Wang PA-C) Physical Exam Notes: General appearance: Well-developed, well-nourished, no apparent distress Head: Normocephalic, atraumatic Eyes: Normal inspection, PERRL, EOMI ENT: Normal ENT inspection, hearing grossly normal, pharynx normal Neck: Supple, no JVD, trachea midline Respiratory/Chest: +Wheezing throughout, crackles in bases worse. Normal breath sounds, no respiratory distress Cardiovascular: +Systolic murmur. Regular rate & rhythm, no gallop Abdomen/GI: Normal bowel sounds, non-tender, soft Extremities/Musculoskeletal: +Trace pitting edema. Normal inspection, no calf tenderness Neurological/Psych: Alert, normal mood/affect, oriented x 3 Skin: Normal color, warm/dry, no rash (No Wang PA-C) Laboratory Results Last 24 Hours Test 11/19/17 11:34 11/19/17 16:04 11/19/17 18:28 11/19/17 20:03 Bedside Glucose 229 mg/dl 193 mg/dl 225 mg/dl Potassium Level 3.8 mmol/L Magnesium Level 2.0 mg/dl Test 11/20/17 04:30 11/20/17 07:40 White Blood Count 5.71 K/uL Red Blood Count 4.23 M/uL Hemoglobin 12.4 g/dL Hematocrit 37.6 % Mean Corpuscular Volume 88.9 fL Mean Corpuscular Hemoglobin 29.3 pg Mean Corpuscular Hemoglobin Concent 33.0 g/dl RDW Standard Deviation 44.1 fL RDW Coefficient of Variation 13.4 % Platelet Count 236 K/uL Mean Platelet Volume 10.1 fL Prothrombin Time 34.3 SECONDS Prothromb Time International Ratio 3.3 Sodium Level 137 mmol/L Potassium Level 3.8 mmol/L Chloride Level 99 mmol/L Carbon Dioxide Level 34 mmol/L Anion Gap 4.0 mmol/L Blood Urea Nitrogen 38 mg/dl Creatinine 1.03 mg/dl Est Creatinine Clear Calc Drug Dose 32.7 ml/min Estimated GFR () 57.4 Estimated GFR (Non- 49.5 BUN/Creatinine Ratio 36.8 Random Glucose 178 mg/dl Calcium Level 8.7 mg/dl Bedside Glucose 161 mg/dl (No Wang PA-C) Assessment and Plan 87 y/o female with a history of CAD, HTN, HLD, a-fib, chronic diastolic CHF, complete heart block s/p pacemaker, asthma, DM II, and iron deficiency anemia who presents with acute respiratory failure with hypoxia. Acute respiratory failure w/hypoxia due to asthma exacerbation/bronchitis-- improving -Admit to telemetry. Pt had 10 beat run v-tach yesterday at 17:40. She states she had palpitations last evening, possibly around this time. Otherwise in paced rhythm with HR in 60s. -O2 by protocol. Currently on room air. Does NOT wear oxygen at home. -Continue Perforomist BID. Will schedule DuoNebs QIDR -D/C Solu-Medrol as pt now on room air, feeling better. Start Prednisone 40 mg PO qd tomorrow -Continue Mucinex 1200 mg PO BID, flutter valve and incentive spirometry -Levaquin adjusted to bronchitis dosing, Levaquin 250 mg IV q24h (renal dosing) , day #3 abx Non-sustained v-tach -EKG 11/20 no acute ischemic changes -Check trop -Potassium, magnesium, TSH WNL -Pt possibly symptomatic w/palpitations -Continue to monitor on tele Acute on chronic diastolic CHF--ongoing -Received Lasix 40 mg IV x 1 yesterday -UO 1300 cc, -675 cc on 11/19 -Crackles worse today, will increase IV Lasix to 40 mg IV qd. Renal function is unchanged -Continue to monitor I's & O's, daily weight -Continue beta elizabeth, MADY UTI POA--stable -UA positive bacteria -Urine culture E. coli resistant to fluoroquinolones, ampicillin/sulbactam -Rocephin 1 gm IV qd CAD, HTN, HLD--stable -Continue Coreg 6.25 mg PO BID, lisinopril 40 mg PO qd A-fib,supratherapeutic INR, bioprosthetic heart valves--stable, paced rhythm -Beta elizabeth as above -Continue to hold warfarin -INR 3.3 on 11/20, down from 3.8 DM II, diet controlled--stable -Insulin sliding scale due to steroids -Check BSGs q ac and qhs -HgbA1c 5.9 on 11/01/17 DVT prophylaxis -Hold chemical ppx due to supratherapeutic INR -SCDs Code Status -Level I, FULL RESUSCITATION STATUS (Wang, No ., PA-Collette) I personally interviewed and examined the patient. I agree with history of present illness and physical exam mentioned above, I also performed my own history taking and examination. Past medical history and review of system has been obtained by myself I reviewed all pertinent labs and studies Reviewed current medications I discussed and formulated of the assessment and plan mentioned above. Please refer to the Summary mentioned below. 87-year-old female with past medical history of dyslipidemia, hypertension, atrial fibrillation, chronic diastolic congestive heart failure, complete heart block status post pacemaker, asthma, diabetes mellitus type 2, iron deficiency anemia and history of CAD presented to the hospital with acute respiratory failure with hypoxemia secondary to asthma exacerbation. Patient was admitted to the hospital started on oxygen supplement, bronchodilators, steroids. Also patient was started on Lasix for diuresis as patient did have an element of congestive heart failure also she was found to have a UTI present on admission. , Started on levofloxacin. Lactinex for C. difficile prophylaxis. continue home medications Urine Cx showed E coli resistant to levofloxacin , ceftriaxone was added to cover UTI General Appearance: not in acute distress Eyes: normal Sclerae, extraocular muscle intact ENT: hearing grossly normal Neck: supple Respiratory/Chest:decrease air entry bilateral ,no severe respiratory distress , no accessory muscle use, positive for scattered rhonchi Cardiovascular: regular rate, rhythm, no murmur Abdomen: non tender, soft, no masses Extremities: no edema musculoskeletal: no significant swelling or inflammation in any joint Neurologic/Psychiatric: Awake alert oriented times place and person moves all extremities sensation intact cranial nerves II-12 appear to be intact Skin: normal color, warm/dry, no rash Skin: normal color, warm/dry, no rash Taylor Garza MD, [facility] hospitalist group (Taylor Chen MD)
[2017-11-20] MEDS ORDERED: FUROSEMIDE INJ 40 MG in SYRINGE 0 ML IV ONE (11:15)
--- NOTE | 2017-11-20 17:02 | Cardiology Consultation ---
Cardiology Consultation Date of Consultation: Nov 20, 2017. Requesting Physician: Dr. Garza Reason for Consultation: NSVT Pt evaluation today including: conversation w/ patient, physical exam, lab review, review of studies, review of inpatient medication list History of Present Illness This is a very pleasant 87-year-old woman who has a long history of valvular heart disease and permanent atrial fibrillation. 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 She had a single-chamber pacemaker implanted following her surgery, this was implanted March 15, 2005. Her pacemaker reached elective replacement time and we replaced it on April 18, 2012 using the original lead. She has remained in complete heart block. She presented to the emergency room on November 18, 2017 with shortness of breath which has been present for perhaps 1 week. 3 days prior to admission she was started on prednisone and Zithromax for pulmonary treatment, however she was more short of breath, had a productive cough and therefore came into the emergency room. There she was felt to be in some degree of congestive heart failure, she was also treated for a respiratory infection. Cardiac enzymes were negative this morning (they do not appear to been done on admission), she remains in atrial fibrillation with a predominantly ventricular paced rhythm. Her INR was somewhat elevated on admission, possibly due to antibiotic therapy as an outpatient. At the time of my evaluation she is feeling much better, her breathing is better and she is not using oxygen currently. She has not had any chest discomfort, nor has she had any palpitations. Past Medical/Surgical History Valve replacement Single-chamber pacemaker Permanent atrial fibrillation Anticoagulation therapy with warfarin Social History Smoking Status: Never Smoker History of Alcohol Use: No Review of Systems Constitutional: No fever, No weight loss, No weakness Respiratory: + see HPI, + cough, + wheezing, + shortness of breath, + dyspnea on exertion Cardiac: No chest pain, No orthopnea, No PND, No edema, No palpitations Abdomen: No pain, No nausea, No vomiting, No diarrhea, No GI bleeding Female : No problem reported Neurologic: No paralysis, No weakness, No numbness/tingling, No balance problems Heme: No abnormal bleeding/bruising, No clotting problems Endo: No fatigue Skin: No problem reported All Other Systems: Reviewed and Negative Allergies Coded Allergies: Heparin (Verified Allergy, Severe, hx HIT 2004, 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/17) Atorvastatin (Verified Adverse Reaction, Severe, diarrhea and leg cramps, 11/18/17) Metformin (Verified Adverse Reaction, Severe, diarrhea, 11/18/17) Pitavastatin (Verified Adverse Reaction, Severe, joint pain, diarrhea, 11/18) Ezetimibe (Verified Adverse Reaction, Unknown, myalgias, increased LFT, 05/27) Simvastatin (Verified Adverse Reaction, Unknown, myalgias, increased LFTs , 03/22/15) Medications Current Inpatient Medications Medications (Trade) Dose Ordered Sig/Ariel Route Start Time Stop Time Status Last Admin Dose Admin Albuterol (Ventolin Hfa Inhaler) 2 puffs Q4 PRN INH 11/18/17 07:45 12/18/17 07:44 Carvedilol (Coreg Tab) 6.25 mg BID PO 11/18/17 10:00 12/18/17 09:59 11/20/17 08:54 6.25 MG Furosemide (Lasix Tab) 20 mg QAM PO 11/19/17 09:00 12/19/17 08:59 Future Hold 11/20/17 09:00 20 MG Lisinopril (Zestril Tab) 40 mg QAM PO 11/18/17 10:00 12/18/17 09:59 11/20/17 08:55 40 MG Multivitamins/ Minerals (Multivitamin W/ Minerals Tab) 1 tab DAILY PO 11/18/17 10:00 12/18/17 09:59 11/20/17 08:55 1 TAB Saccharomyces Boulardii (Florastor Cap) 250 mg AC PO 11/18/17 11:00 12/18/17 10:59 11/20/17 10:18 250 MG Acetaminophen (Tylenol Tab) 650 mg Q4H PRN PO 11/18/17 07:45 12/18/17 07:44 Al Hydrox/Mg Hydrox/Simethicone (Maalox Max Susp) 15 ml Q4H PRN PO 11/18/17 07:45 12/18/17 07:44 Magnesium Hydroxide (Milk Of Magnesia Susp) 30 ml Q12H PRN PO 11/18/17 07:45 12/18/17 07:44 Ondansetron HCl (Zofran Inj) 4 mg Q6H PRN IV 11/18/17 07:45 5/8/18 07:44 Formoterol Fumarate (Perforomist 20MCG/2ML Neb Soln) 20 mcg Q12R INH 11/18/17 20:00 12/18/17 19:59 11/20/17 07:12 20 MCG Albuterol/ Ipratropium (Duoneb) 3 ml Q2H PRN NEB 11/18/17 07:45 12/18/17 07:44 Insulin Aspart (novoLOG ASPART) SLIDING SCALE PARAMETER ACHS SC 11/18/17 11:00 12/18/17 10:59 11/20/17 12:26 1 UNITS Levofloxacin (Consult) 1 ea UD PRN N/A 11/18/17 12:00 12/18/17 11:59 Nystatin (Mycostatin Susp) 5 ml QID PO 11/18/17 13:00 12/18/17 12:59 11/20/17 12:27 5 ML Levofloxacin 250 mg/Prmx 50 ml @ 50 mls/hr DAILY@1100 IV 11/20/17 08:00 11/25/17 11:59 11/20/17 08:53 50 MLS/HR Guaifenesin (Mucinex Contr Rel Tab) 1,200 mg Q12 PO 11/19/17 21:00 12/19/17 20:59 11/20/17 08:55 1,200 MG Albuterol/ Ipratropium (Duoneb) 3 ml QIDR INH 11/19/17 16:00 12/19/17 15:59 11/20/17 15:02 3 ML Lactobacillus Acidophilus (Floranex Tab) 4 tab TIDM PO 11/20/17 08:00 12/20/17 07:59 11/20/17 12:27 4 TAB Ceftriaxone Sodium 1 gm/ Dextrose 50 ml @ 100 mls/hr Q24H IV 11/20/17 10:00 11/30/17 09:59 11/20/17 10:16 100 MLS/HR Furosemide 40 mg/ Syringe 4 ml @ 4 mls/min DAILY@0900 IV 11/21/17 09:00 12/21/17 08:59 Prednisone (PredniSONE TAB) 40 mg DAILY PO 11/21/17 09:00 12/21/17 08:59 Physical Exam Vital Signs Past 12 Hours Date Time Temp Pulse Resp B/P (MAP) Pulse Ox O2 Delivery O2 Flow Rate FiO2 11/20/17 15:33 36.3 95 16 148/82 (104) 90 Room Air 11/20/17 15:02 65 16 93 Room Air 11/20/17 12:00 Room Air 11/20/17 11:56 36.8 62 16 171/81 (111) 90 Room Air 11/20/17 11:44 93 11/20/17 11:18 60 163/83 (109) 11/20/17 11:09 64 15 93 Room Air 11/20/17 08:53 96 151/73 (99) 11/20/17 08:00 93 Room Air 11/20/17 07:13 61 15 91 Room Air 11/20/17 07:10 36.7 99 16 147/84 (105) 91 Room Air 11/20/17 04:43 36.4 60 20 147/76 (99) 92 Room Air Constitutional: General Apperance: heathly-appearing Level of Distress: NAD Psychiatric: Mental Status: active & alert Head: normocephalic Eyes: EOM: EOMI ENMT: normal ENT inspection, hearing grossly normal Neck: supple, no masses Lungs: Respiratory effort: no dyspnea, good air movement Auscultation: breath sounds normal, no wheezing Cardiovascular: Heart Auscultation: RRR, no rubs, no gallops, II/ PATT, pertinent finding ( Good prosthetic valve sounds) Peripheral Pulses: Bruits: none appreciated Abdomen: Bowel Sounds: normal Inspection & Palpation: soft, no tenderness, guarding & rebound, no masses Musculoskeletal: normal strength (5/5 throughout) Extremities: no edema Neurologic: Cranial Nerves: grossly intact Sensation: grossly intact Data Laboratory Results: Last 24 Hours Test 11/19/17 18:28 11/19/17 20:03 11/20/17 04:30 11/20/17 07:40 Potassium Level 3.8 mmol/L 3.8 mmol/L Magnesium Level 2.0 mg/dl Bedside Glucose 225 mg/dl 161 mg/dl White Blood Count 5.71 K/uL Red Blood Count 4.23 M/uL Hemoglobin 12.4 g/dL Hematocrit 37.6 % Mean Corpuscular Volume 88.9 fL Mean Corpuscular Hemoglobin 29.3 pg Mean Corpuscular Hemoglobin Concent 33.0 g/dl RDW Standard Deviation 44.1 fL RDW Coefficient of Variation 13.4 % Platelet Count 236 K/uL Mean Platelet Volume 10.1 fL Prothrombin Time 34.3 SECONDS Prothromb Time International Ratio 3.3 Sodium Level 137 mmol/L Chloride Level 99 mmol/L Carbon Dioxide Level 34 mmol/L Anion Gap 4.0 mmol/L Blood Urea Nitrogen 38 mg/dl Creatinine 1.03 mg/dl Est Creatinine Clear Calc Drug Dose 32.7 ml/min Estimated GFR () 57.4 Estimated GFR (Non- 49.5 BUN/Creatinine Ratio 36.8 Random Glucose 178 mg/dl Calcium Level 8.7 mg/dl Test 11/20/17 11:43 11/20/17 11:48 Troponin I < 0.015 ng/ml Bedside Glucose 164 mg/dl Imaging: Chest x-ray on admission felt to be consistent with pulmonary vascular congestion, although on my review there is not a lot of evidence for heart failure EKG: Her electrocardiogram shows underlying atrial fibrillation with a ventricular paced rhythm. One 10 beat run of nonsustained ventricular tachycardia at a rate of about 200 bpm recorded. Telemetry reviewed: Atrial fibrillation, ventricular paced rhythm Assessment & Plan 1. Nonsustained ventricular tachycardia: She does have an episode of nonsustained ventricular tachycardia recorded, I do not see that we have identified that before in our records. Her pacemaker does monitor for the arrhythmia therefore I will have the device interrogated to see with her other episodes. The significance of it would depend on her ejection fraction, if she has normal left ventricular function we may not want to do anything about it other than perhaps beta-blockade. 2. Congestive heart failure: She may have had mild congestive heart failure although there is not a lot of evidence for it. I suspect her presentation was pulmonary in nature, I would not be too aggressive in diuresing at the moment. I do want to check her left ventricular function however and make sure her bowels are working properly. 3. Aortic and mitral valve replacements: Both of these are bioprosthetic valves and on exam appeared to be functioning properly. I would like to get an echocardiogram to confirm that. 4. Permanent atrial fibrillation: She is in permanent atrial fibrillation and is on warfarin, she does not need warfarin for her valves therefore would keep her INR between 2 and 3. 5. Pacemaker: She is a single pacemaker which appears to be functioning normally but we will evaluate it during this admission, she was evaluated in 2017. Thank you for allowing me to participate in her care.
[2017-11-21 04:42] VITALS: BP 138/72; PULSE 59; TEMP 36.8; O2SAT 92
[2017-11-21 05:01] LABS: HEMOGLOBIN 12.5 g/dL (12.0-16.0); MEAN CELL VOLUME 88.2 fL (80-100); MEAN CORPUSCULAR HGB CONC 32.9 g/dl (32-36); MEAN PLATELET VOLUME 9.9 fL (7.4-10.4); PLATELET COUNT 264 K/uL (130-400); RED CELL DISTRIBUTION WIDTH CV 13.4 % (11.5-14.5); RED CELL DISTRIBUTION WIDTH SD 43.6 fL (36.4-46.3); WHITE BLOOD COUNT 7.13 K/uL (4.8-10.8)
[2017-11-21 05:19] LABS: CALCIUM 8.6 mg/dl (8.5-10.1); CREATININE 1.19 mg/dl (0.60-1.20); POTASSIUM 3.3 mmol/L (3.5-5.1)
[2017-11-21] MEDS: SACCHAROMYCES BOUL (FLORASTOR) 250 MG CAP PO SCH ×2 (06:25→11:17)
[2017-11-21 07:09] VITALS: PULSE 60; O2SAT 91
[2017-11-21] MEDS: FORMOTEROL FUMA NEBULIZER SOLN 20 MCG/2 ML VIAL INH SCH (07:09)
[2017-11-21] MEDS: ALBUT/IPRATROP 3MG/0.5MG NEB 3 ML VIAL INH SCH ×2 (07:09→11:22)
[2017-11-21 07:20] VITALS: BP 147/84; PULSE 60; TEMP 36.8; O2SAT 91
[2017-11-21] MEDS ORDERED: POTASSIUM CHLORIDE 20 MEQ TABCR PO ONE (08:30)
[2017-11-21] MEDS: GUAIFENESIN 600 MG TABCR PO SCH (08:32)
[2017-11-21] MEDS: LACTOBACILLUS ACIDOPHILUS (FLORANEX) TAB PO SCH ×2 (08:32→12:15)
[2017-11-21] MEDS: CEROVITE ADV FORMULA TAB PO SCH (08:33)
[2017-11-21] MEDS: LISINOPRIL 40 MG TAB PO SCH (08:34)
[2017-11-21] MEDS: CARVEDILOL 6.25 MG TAB PO SCH (08:35)
[2017-11-21] MEDS: NYSTATIN SUSP 500,000 U/5 ML UDC PO SCH ×2 (08:36→12:17)
[2017-11-21] MEDS ORDERED: FUROSEMIDE INJ 40 MG in SYRINGE 0 ML IV SCH (09:00)
[2017-11-21] MEDS: INSULIN ASPART 100 UNITS/ML 3 ML PEN SC SCH ×2 (09:02→12:17)
--- NOTE | 2017-11-21 10:00 | Cardiology Follow-Up ---
Subjective Date of Service: Nov 21, 2017. Pt evaluation today including: conversation w/ patient, physical exam, lab review, review of studies, review of inpatient medication list History of Present Illness This is a very pleasant 87-year-old woman who has a long history of valvular heart disease and permanent atrial fibrillation. 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 She had a single-chamber pacemaker implanted following her surgery, this was implanted March 15, 2005. Her pacemaker reached elective replacement time and we replaced it on April 18, 2012 using the original lead. She has remained in complete heart block. She presented to the emergency room on November 18, 2017 with shortness of breath which has been present for perhaps 1 week. 3 days prior to admission she was started on prednisone and Zithromax for pulmonary treatment, however she was more short of breath, had a productive cough and therefore came into the emergency room. There she was felt to be in some degree of congestive heart failure, she was also treated for a respiratory infection. Cardiac enzymes were negative the day after admission (they do not appear to been done on admission), she remains in atrial fibrillation with a predominantly ventricular paced rhythm. Her INR was somewhat elevated on admission, possibly due to antibiotic therapy as an outpatient. She was observed to have an episode of nonsustained ventricular tachycardia on monitoring. Today she feels well, she has no significant shortness of breath although has not been very active. No chest discomfort or palpitations. Social History Smoking Status: Never Smoker History of Alcohol Use: No Review of Systems Respiratory: + see HPI, + cough, + wheezing, + shortness of breath, + dyspnea on exertion Cardiac: No chest pain, No orthopnea, No PND, No edema, No palpitations Medications Cardiovascular: Item Value Date Time Warfarin Sodium 7.5 mg 11/21/17 1600 (Coumadin Tab) DAILY@1600/PO Furosemide 40 mg/ 4 ml @ 4 mls/min 11/21/17 0900 Syringe DAILY@0900/IV 11/21/17 0834 Carvedilol 6.25 mg 11/18/17 1000 (Coreg Tab) BID/PO 11/21/17 0835 Lisinopril 40 mg 11/18/17 1000 (Zestril Tab) QAM/PO 11/21/17 0834 Objective Vital Signs Past 12 Hours Date Time Temp Pulse Resp B/P (MAP) Pulse Ox O2 Delivery O2 Flow Rate FiO2 11/21/17 07:20 36.8 60 20 147/84 (105) 91 Room Air 11/21/17 07:09 60 16 91 Room Air 11/21/17 04:42 36.8 59 20 138/72 (94) 92 Room Air 11/21/17 04:00 Room Air 11/21/17 00:10 Room Air 11/20/17 23:40 36.7 60 20 160/85 (110) 93 Room Air Last Recorded Weight-Kilograms: 61.000 Physical Exam Constitutional: General Apperance: heathly-appearing Level of Distress: NAD Lungs: Respiratory effort: no dyspnea, good air movement Auscultation: breath sounds normal, no wheezing Cardiovascular: Heart Auscultation: RRR, no rubs, no gallops, II/ PATT, pertinent finding ( Good prosthetic valve sounds) Peripheral Pulses: Bruits: none appreciated Extremities: no edema Data Laboratory Results: Last 24 Hours Test 11/20/17 11:43 11/20/17 11:48 11/20/17 16:19 11/20/17 20:33 Troponin I < 0.015 ng/ml Bedside Glucose 164 mg/dl 222 mg/dl 245 mg/dl Test 11/21/17 04:45 White Blood Count 7.13 K/uL Red Blood Count 4.31 M/uL Hemoglobin 12.5 g/dL Hematocrit 38.0 % Mean Corpuscular Volume 88.2 fL Mean Corpuscular Hemoglobin 29.0 pg Mean Corpuscular Hemoglobin Concent 32.9 g/dl RDW Standard Deviation 43.6 fL RDW Coefficient of Variation 13.4 % Platelet Count 264 K/uL Mean Platelet Volume 9.9 fL Prothrombin Time 20.7 SECONDS Prothromb Time International Ratio 2.0 Sodium Level 137 mmol/L Potassium Level 3.3 mmol/L Chloride Level 98 mmol/L Carbon Dioxide Level 34 mmol/L Anion Gap 5.0 mmol/L Blood Urea Nitrogen 42 mg/dl Creatinine 1.19 mg/dl Est Creatinine Clear Calc Drug Dose 28.3 ml/min Estimated GFR () 48.2 Estimated GFR (Non- 41.6 BUN/Creatinine Ratio 35.1 Random Glucose 104 mg/dl Calcium Level 8.6 mg/dl Magnesium Level 2.0 mg/dl Telemetry reviewed: Ventricular paced rhythm, underlying atrial fibrillation Echocardiogram: Her echocardiogram shows normal left ventricular size with mild left ventricular dysfunction and an ejection fraction of 45-50%. With 3 aortic and mitral valves appeared to be functioning well, she has mild perivalvular aortic insufficiency. Assessment and Plan 1. Nonsustained ventricular tachycardia: She does have one episode of nonsustained ventricular tachycardia recorded on telemetry, I do not see that we have identified that before in our office records. Her pacemaker does monitor for the arrhythmia however it was set so that it would not have detected this arrhythmia (it was set for 15 beats greater than 150 bpm). She has not had any detected by the device however on current interrogation. We have adjusted her settings to reduce the duration needed to detect ventricular tachycardia through her pacemaker, at this point I would not pursue further evaluation or treatment. 2. Congestive heart failure: She may have had mild congestive heart failure although there is not a lot of evidence for it. I suspect her presentation was pulmonary in nature, I would not be too aggressive in diuresing at the moment. She appears to be becoming prerenal and I would back off on diuretics. By echo she has only mild left ventricular dysfunction, I would not evaluate further but we will need to watch her weight as an outpatient. 3. Aortic and mitral valve replacements: Both of these are bioprosthetic valves and on exam appeared to be functioning properly. By echocardiography her valves are working well, she does have mild perivalvular aortic insufficiency but this does not require further evaluation. 4. Permanent atrial fibrillation: She is in permanent atrial fibrillation and is on warfarin, she does not need warfarin for her valves therefore would keep her INR between 2 and 3. 5. Pacemaker: She is a single pacemaker which is functioning well, interrogation is on the chart. Thank you for allowing me to participate in her care.
[2017-11-21] MEDS: CEFTRIAXONE SOD INJ 1 GM in DEXTROSE 5% ADD-VANTAGE 50ML 50 ML IV SCH (10:34)
[2017-11-21] MEDS: LEVOFLOXACIN / D5W 250 MG in PREMIXED IN D5W 50 ML IV SCH (11:17)
[2017-11-21 11:24] VITALS: PULSE 78; O2SAT 90
[2017-11-21 11:54] VITALS: BP 156/82; PULSE 64; TEMP 36.7; O2SAT 100
--- NOTE | 2017-11-21 13:16 | ECHOCARDIOGRAM REPORT ---
*NOTICE TO RECEIVING DEMOCRAT AGENCY This information is strictly Confidential and protected under [place] law. [place] law prohibits you from making any further disclosure of this information unless further disclosure is expressly permitted by the written consent of the person to whom it pertains or is authorized by law. A general authorization for the release of medical or other information is not sufficient for this purpose. Hospital accepts no responsibility if the information is made available to any other person, INCLUDING THE PATIENT. Interpretation Summary * Name: KYRIE HARMON Study Date: 11/21/2017 07:27 AM BP: 138/72 mmHg * Patient Location: [facility]\S\N289\S\2 HR: 59 * : 1930 (M/d/yyyy) Gender: Female Height: 60 in * Age: 87 yrs Ethnicity: [place] Weight: 135 lb * Ordering Physician: Rufino Barnes * Performed By: Monse Hinton RDCS * * Reason For Study: CHF, AVR \T\ MVR * BSA: 1.6 m2 * -- Conclusions -- * 1. Normal LV size. Moderate concentric LVH. * 2. Mild LV dysfunction LVEF 45-50 %. Mild inferior hypokinesis with akinetic apical inferior segment. * 3. Well-seated bioprosthetic aortic valve with expected transvalvular gradients. Mild aortic regurgitation (appears perivalvular). * 4. Well-seated bioprosthetic mitral valve with expected transvalvular gradients and no significant regurgitation. * 5. RV not well visualized, grossly normal size, mild RV dysfunction. * 6. Mild tricuspid regurgitation. Normal estimated RA and PA pressures. * 7. Mildly dilated ascending aorta (3.7 centimeter) Procedure Details * A complete two-dimensional transthoracic echocardiogram was performed (2D, M-mode, Doppler and color flow Doppler). Left Ventricle * The left ventricle is grossly normal size. * There is moderate concentric left ventricular hypertrophy. * Ejection Fraction = 45-50%. * Mild inferior hypokinesis with akinetic apical inferior segment. Right Ventricle * There is a pacemaker lead in the right ventricle. * The right ventricle is not well visualized. * The right ventricle is grossly normal size. * The right ventricular systolic function is reduced as assessed by tricuspid annular plane systolic excursion (TAPSE) (TAPSE <1.6 cm). Atria * The left atrium is moderately dilated. * The right atrium is moderate to severely dilated. Mitral Valve * Bioprosthesis leaflets are not well visualized. * Prosthetic mitral valve peak and/or mean gradients are normal. Tricuspid Valve * There is mild tricuspid regurgitation. * Right ventricular systolic pressure is elevated at 30-40mmHg. Aortic Valve * No hemodynamically significant valvular aortic stenosis. * There is a bioprosthetic aortic valve. * Bioprosthetic leaflets are thin and move normally. * The prosthetic aortic valve appears to open well. Pulmonic Valve * The pulmonary valve is inadequately visualized, but the Doppler data is adequate for interpretation. * Pulmonic stenosis is absent. * Trace pulmonic valvular regurgitation. Great Vessels * The aortic root is normal size. * Borderline dilated ascending aorta. * Asc Aorta 3.7 cm Pericardium/Pleural * There is no pericardial effusion. Great Vessels * Normal inferior vena cava size and collapsability with sniff indicates a normal right atrial pressure of 3 mmHg MMode 2D Measurements and Calculations IVSd 1.8 cm IVSs 2.7 cm LVIDd 4.3 cm LVIDs 3.3 cm LVPWd 1.5 cm LVPWs 1.7 cm IVS/LVPW 1.2 FS 23.0 % EDV(Teich) 84.4 ml ESV(Teich) 45.2 ml EF(Teich) 46.4 % EDV(cubed) 81.1 ml ESV(cubed) 37.0 ml EF(cubed) 54.4 % % IVS thick 52.5 % % LVPW thick 13.1 % LV mass(C)d 291.4 grams LV mass(C)dI 184.5 grams/m\S\2 LV mass(C)s 345.4 grams LV mass(C)sI 218.7 grams/m\S\2 SV(Teich) 39.2 ml SI(Teich) 24.8 ml/m\S\2 SV(cubed) 44.1 ml SI(cubed) 27.9 ml/m\S\2 ACS 1.3 cm asc Aorta Diam 4.0 cm LVOT diam 2.3 cm LVOT area 4.3 cm\S\2 LVAd ap4 35.0 cm\S\2 LVLd ap4 7.9 cm EDV(MOD-sp4) 129.4 ml EDV(sp4-el) 132.1 ml LVAs ap4 24.0 cm\S\2 LVLs ap4 6.8 cm ESV(MOD-sp4) 70.6 ml ESV(sp4-el) 71.2 ml EF(MOD-sp4) 45.5 % EF(sp4-el) 46.1 % LVAd ap2 36.3 cm\S\2 LVLd ap2 7.9 cm EDV(MOD-sp2) 142.6 ml EDV(sp2-el) 142.1 ml LVAs ap2 26.4 cm\S\2 LVLs ap2 7.2 cm ESV(MOD-sp2) 83.8 ml ESV(sp2-el) 81.8 ml EF(MOD-sp2) 41.3 % EF(sp2-el) 42.4 % LVLd %diff -0.35 % EDV(MOD-bp) 135.9 ml LVLs %diff 5.6 % ESV(MOD-bp) 78.5 ml EF(MOD-bp) 42.3 % SV(MOD-sp4) 58.8 ml SI(MOD-sp4) 37.2 ml/m\S\2 SV(MOD-sp2) 58.9 ml SI(MOD-sp2) 37.3 ml/m\S\2 SV(MOD-bp) 57.5 ml SI(MOD-bp) 36.4 ml/m\S\2 SV(sp4-el) 60.9 ml SI(sp4-el) 38.6 ml/m\S\2 SV(sp2-el) 60.3 ml SI(sp2-el) 38.2 ml/m\S\2 Doppler Measurements and Calculations MV E max cali 178.5 cm/sec MV V2 max 197.7 cm/sec MV max PG 15.6 mmHg MV V2 mean 69.9 cm/sec MV mean PG 3.0 mmHg MV V2 VTI 46.6 cm MV dec time 0.37 sec Ao V2 max 74.3 cm/sec Ao max PG 2.6 mmHg PA V2 max 32.4 cm/sec PA max PG 0.42 mmHg PI end-d cali 118.6 cm/sec TR max cali 259.9 cm/sec
[2017-11-21] MEDS ORDERED: WARF-246 PO (14:14)
[2017-11-21] MEDS ORDERED: LVQ250 PO (14:14)
[2017-11-21] MEDS ORDERED: CFT250 PO (14:14)
[2017-11-21] MEDS ORDERED: GUAI10TA PO (14:14)
[2017-11-21] MEDS ORDERED: PRED10TA PO (14:14)
--- NOTE | 2017-11-21 14:23 | Discharge Instructions ---
Discharge Instructions Date of Service Nov 21, 2017. Admission Reason for Admission: Acute Respiratory Failure With Hypoxia Discharge Discharge Diagnosis / Problem: Acute respiratory failure with hypoxia, asthma exacerbation/bronchitis Discharge Goals Goal(s): Decrease discomfort, Improve function, Diagnostic testing, Therapeutic intervention Activity Recommendations Activity Limitations: resume your previous activity (as tolerated) . Instructions / Follow-Up Instructions / Follow-Up You were admitted to the hospital after presenting with productive cough and shortness of breath. You were found to by hypoxic and initially required supplemental oxygen. You have since been weaned off oxygen. You were treated with IV steroids, nebulizers, and an antibiotic to cover possible bacterial bronchitis, as these symptoms have been ongoing for a while. You were also found to have a urinary tract infection while in the hospital which is being treated with a different antibiotic. When you first arrived to the hospital, your INR was too high, so your warfarin was held. This was likely due to the antibiotics that were started as an outpatient, as antibiotics can enhance the effects of warfarin. You are now back in therapeutic range. You are now medically stable for discharge. Medications: *Please take the following prednisone taper. This is an oral steroid. -Take 40 mg (4 tabs) daily for 2 days, then -Take 20 mg (2 tabs) daily for 2 days, then -Take 10 mg (1 tab) daily for 2 days, then stop. *Please take Levaquin 250 mg. You only have 1 dose remaining that is due tomorrow, 11/22. *You may take Mucinex 1200 mg twice a day for the next week to help thin your mucus as you recover from your bronchitis. *Please take cefuroxime 250 mg twice a day for 5 days. This is an antibiotic for your urinary tract infection. *Your warfarin dose has been lowered to 5 mg daily. This has been sent to your pharmacy. Please take the first dose today. A script to recheck your INR in 2- 3 days will be provided and the results will be sent to your cardiology office. They can change your regimen as needed. *Continue your other home medications as prescribed. Follow up: *You will be scheduled to follow up with your primary care provider, Dr. Gipson. Please seek medical attention if you experience fevers, chills, sweats, dizziness/lightheadedness, loss of consciousness, chest pain, shortness of breath, nausea, vomiting, numbness or tingling. Current Hospital Diet Patient's current hospital diet: Diabetes Type 2 Diet Discharge Diet Recommended Diet: Diabetes Type 2 Diet Procedures Procedures Performed: Echocardiogram Pending Studies Studies pending at discharge: no Laboratory Results Hemoglobin A1c Test 11/01/17 09:43 Range/Units Estimated Average Glucose 123 mg/dl Hemoglobin A1c 5.9 H 4.5-5.6 % Lipid Panel Test 11/01/17 09:43 Range/Units Triglycerides Level 138 0-150 mg/dl Cholesterol Level 172 0-200 mg/dl HDL Cholesterol 44 mg/dl Cholesterol/HDL Ratio 3.9 LDL Cholesterol, Calculated 100 mg/dl Medical Emergencies . Who to Call and When: Medical Emergencies: If at any time you feel your situation is an emergency, please call 911 immediately. . Non-Emergent Contact Non-Emergency issues call your: Primary Care Provider, Development Planner Call Non-Emergent contact if: you have a fever, you have any medication questions . Past History Medical & Surgical History: (1) Bronchitis (2) Acute respiratory failure with hypoxia (3) Reactive airway disease . "Provider Documentation" section prepared by No Wang. .
[2017-11-21 14:32] VITALS: BP 156/82; PULSE 64; TEMP 36.7; O2SAT 100
--- NOTE | 2017-11-21 15:09 | Discharge Summary ---
Discharge Summary Date of Service Nov 21, 2017. Discharge Summary Admission Date: Nov 18, 2017 at 07:44 Discharge Date: Nov 21, 2017 Discharge Disposition: Home Principal Diagnosis: Acute respiratory failure with hypoxia, bronchitis, asthma exacerbation Problems/Secondary Diagnoses: CAD, HTN, HLD, a-fib, chronic diastolic CHF, complete heart block s/p pacemaker , asthma, DM II, and iron deficiency anemia Immunizations: Have You Had Influenza Vaccine: Yes Influenza Vaccine Date: May 21, 2009 History of Tetanus Vaccine?: Yes History of Pneumococcal: Yes Pneumococcal Date: May 25, 2004 History of Hepatitis B Vaccine: No Procedures: Echocardiogram: Interpretation Summary * Name: KYRIE HARMON Study Date: 11/21/2017 07:27 AM BP: 138/72 mmHg * Patient Location: [facility]\S\89\S\2 HR: 59 * : 1930 (M/d/yyyy) Gender: Female Height: 60 in * Age: 87 yrs Ethnicity: NE Weight: 135 lb * Ordering Physician: Rufino Barnes * Performed By: Monse Hinton [facility] * * Reason For Study: CHF, AVR \T\ MVR * BSA: 1.6 m2 * -- Conclusions -- * 1. Normal LV size. Moderate concentric LVH. * 2. Mild LV dysfunction LVEF 45-50 %. Mild inferior hypokinesis with akinetic apical inferior segment. * 3. Well-seated bioprosthetic aortic valve with expected transvalvular gradients. Mild aortic regurgitation (appears perivalvular). * 4. Well-seated bioprosthetic mitral valve with expected transvalvular gradients and no significant regurgitation. * 5. RV not well visualized, grossly normal size, mild RV dysfunction. * 6. Mild tricuspid regurgitation. Normal estimated RA and PA pressures. * 7. Mildly dilated ascending aorta (3.7 centimeter) Procedure Details * A complete two-dimensional transthoracic echocardiogram was performed (2D, M-mode, Doppler and color flow Doppler). Left Ventricle * The left ventricle is grossly normal size. * There is moderate concentric left ventricular hypertrophy. * Ejection Fraction = 45-50%. * Mild inferior hypokinesis with akinetic apical inferior segment. Right Ventricle * There is a pacemaker lead in the right ventricle. * The right ventricle is not well visualized. * The right ventricle is grossly normal size. * The right ventricular systolic function is reduced as assessed by tricuspid annular plane systolic excursion (TAPSE) (TAPSE <1.6 cm). Atria * The left atrium is moderately dilated. * The right atrium is moderate to severely dilated. Mitral Valve * Bioprosthesis leaflets are not well visualized. * Prosthetic mitral valve peak and/or mean gradients are normal. Tricuspid Valve * There is mild tricuspid regurgitation. * Right ventricular systolic pressure is elevated at 30-40mmHg. Aortic Valve * No hemodynamically significant valvular aortic stenosis. * There is a bioprosthetic aortic valve. * Bioprosthetic leaflets are thin and move normally. * The prosthetic aortic valve appears to open well. Pulmonic Valve * The pulmonary valve is inadequately visualized, but the Doppler data is adequate for interpretation. * Pulmonic stenosis is absent. * Trace pulmonic valvular regurgitation. Great Vessels * The aortic root is normal size. * Borderline dilated ascending aorta. * Asc Aorta 3.7 cm Pericardium/Pleural * There is no pericardial effusion. Great Vessels * Normal inferior vena cava size and collapsability with sniff indicates a normal right atrial pressure of 3 mmHg Consultations: Cardiology Medication Reconciliation New Medications: Prednisone Tab (Prednisone) 10 Mg Tab 10 MG PO UD for 6 Days, #14 TAB Take 4 tabs daily for 2 days, 2 tabs daily for 2 days, 1 tab daily for 2 days Cefuroxime Axetil (Cefuroxime Axetil) 250 Mg Tab 250 MG PO BID for 5 Days, #10 TAB Guaifenesin (Guaifenesin ER) 1,200 Mg Tab 1200 MG PO BID for 7 Days, #14 TABS Levofloxacin (Levofloxacin) 250 Mg Tab 250 MG PO DAILY@11 for 1 Day, #1 TAB Changed Medications: Warfarin Sodium (Warfarin Sodium) 5 Mg Tab 1 TAB PO DAILY for 30 Days, #30 TAB (Changed from: Warfarin Sodium 7.5 Mg Tab 7.5 Mg PO DAILY) Continued Medications: Albuterol Hfa (Ventolin Hfa) 200 Puffs/25145 Mcg Aers 2 PUFFS INH Q4 PRN for SOB/Wheezing, #1 INHALER Calcium-Magnesium W/ Vitamin D (Calcium 500) 1 Tab Tab 500 MG PO DAILY Carvedilol (Coreg) 6.25 Mg Tab 6.25 MG PO BID, TAB Coenzyme Q10 (Ubidecarenone) (Coenzyme Q-10) 100 Mg Cap 100 MG PO DAILY Furosemide (Lasix) 20 Mg Tab 20 MG PO QAM, TAB Ipratropium-Albuterol (Duoneb) 3 Ml Nebu 1 TREATMENT INH QID PRN for SOB/Wheezing, INHA Lisinopril (Lisinopril) 40 Mg Tab 40 MG PO QAM Mometasone Furoate (Inhalation (Asmanex Hfa) 100 Mcg/Act Aer 1 PUFF PO BID rinse mouth after usage Multivitamins/Minerals (Mvi With Minerals) Tab 1 TAB PO DAILY, TAB Nystatin (Nystatin Suspension) 1 Ml Susp 1 TSP PO QID for 14 Days swish and swallow after meals and at bedtime for at least 2 weeks Saccharomyces Boulardii (Florastor) 250 Mg Cap 250 MG PO AC Discontinued Medications: Azithromycin (Zithromax) 250 Mg Tab MG PO UD take 2 tabs on day 1 then 1 tab a day for 4 days Prednisone (Prednisone) 10 Mg Tab MG PO UD 4 pills for 2 days,3 pills for 2 days,2 pills for 2 days,1 pill for 2 days then off Discharge Exam Patient reports feeling well. She denies any shortness of breath currently. She does still report a productive cough but states that it continues to improve. She still complains of wheezing. The patient denies fevers, chills, sweats, chest pain, palpitations, claudication, shortness of breath, nausea, vomiting, abdominal pain, dysuria, hematuria, urinary retention, paralysis, weakness, numbness and tingling. Constitutional: No fever, No chills, No sweats Eyes: No worsening of vision, No eye pain, No diplopia ENT: No hearing loss, No nasal symptoms, No trouble swallowing Respiratory: +Productive cough, wheezing. No shortness of breath Cardiovascular: No chest pain, No claudication, No palpitations Abdomen: No pain, No nausea, No vomiting Musculoskeletal: No joint pain, No muscle pain, No swelling Genitourinary - Female: No dysuria, No urinary retention, No hematuria Neurologic: No paralysis, No weakness, No numbness/tingling Integumentary: No rash, No itch, No color change General appearance: Well-developed, well-nourished, no apparent distress Head: Normocephalic, atraumatic Eyes: Normal inspection, PERRL, EOMI ENT: Normal ENT inspection, hearing grossly normal, pharynx normal Neck: Supple, no JVD, trachea midline Respiratory/Chest: +Wheezing in bases, improved. Normal breath sounds, no respiratory distress Cardiovascular: +Systolic murmur. Regular rate & rhythm, no gallop Abdomen/GI: Normal bowel sounds, non-tender, soft Extremities/Musculoskeletal: Normal inspection, no calf tenderness, no pedal edema Neurological/Psych: Alert, normal mood/affect, oriented x 3 Skin: Normal color, warm/dry, no rash Hospital Course 87 y/o female with a history of CAD, HTN, HLD, a-fib, chronic diastolic CHF, complete heart block s/p pacemaker, asthma, DM II, and iron deficiency anemia who presents with acute respiratory failure with hypoxia. Acute respiratory failure w/hypoxia due to asthma exacerbation/bronchitis-- resolving -Admit to telemetry. No re-occurrence of NSVT last night. Pt in paced rhythm with HR 60s-70s -O2 by protocol. Currently on room air. Does NOT wear oxygen at home. -Continue Perforomist BID. Will schedule DuoNebs QIDR. Pt has DuoNebs at home prn -Prednisone 40 mg PO qd. Continue following taper as outpt: 40 mg x 2 days, 20 mg x 2 days, 10 mg x 2 days -Continue Mucinex 1200 mg PO BID, flutter valve and incentive spirometry -Levaquin adjusted to bronchitis dosing, Levaquin 250 mg IV q24h (renal dosing) , day #4 abx. Converted to PO. Continue 1 more day as outpt to complete 5 day course Non-sustained v-tach--stable -EKG 11/20 no acute ischemic changes -Troponin negative -Potassium, magnesium, TSH WNL -Pt possibly symptomatic w/palpitations -Continue to monitor on tele, no other events -Cardiology consulted, appreciate recs: Spoke with Dr. Barnes. LV function only mildly reduced. Pacemaker interrogated, no prolonged events recorded (had only been set to record events 15 beats or longer). Changed settings to record events 5 beats or longer. No further intervention needed, continue beta elizabeth. -Echo shows EF 45-50%. Mild inferior hypokinesis w/akinetic apical inferior segment. Mild aortic regurg but otherwise well-seated aortic and mitral valves. Mild tricuspid regurg. Mildly dilated ascending aorta (3.7 cm). Acute on chronic diastolic CHF--improving -Lasix 40 mg IV qd -UO 1450 cc, -540 cc 11/20 -No crackles today, creatinine mildly increased, likely more euvolemic at this point and can resume home dose of Lasix 20 mg PO qd -Continue to monitor I's & O's, daily weight -Continue beta elizabeth, MADY UTI POA--stable -UA positive bacteria -Urine culture E. coli resistant to fluoroquinolones, ampicillin/sulbactam and cefazolin -Rocephin 1 gm IV qd, converted to cefuroxime for discharge. Continue cefuroxime 250 mg PO BID x 5 more days CAD, HTN, HLD--stable -Continue Coreg 6.25 mg PO BID, lisinopril 40 mg PO qd A-fib,supratherapeutic INR, bioprosthetic heart valves--stable, paced rhythm -Beta elizabeth as above -INR 2.0 on 11/21. Will restart warfarin but at lower dose due to ongoing antibiotics which may enhance warfarin's effects. D/C with warfarin 5 mg PO qd -Recheck INR 2-3 days, script for lab draw provided at discharge. Results forwarded to Dr. Bartholomew, who manages warfarin for pt DM II, diet controlled--stable -Insulin sliding scale due to steroids -Check BSGs q ac and qhs -HgbA1c 5.9 on 11/01/17 DVT prophylaxis -Hold chemical ppx due to supratherapeutic INR -SCDs Code Status -Level I, FULL RESUSCITATION STATUS I personally interviewed and examined the patient. I agree with history of present illness and physical exam mentioned above, I also performed my own history taking and examination. Past medical history and review of system has been obtained by myself I reviewed all pertinent labs and studies Reviewed current medications I discussed and formulated of the assessment and plan mentioned above. Please refer to the Summary mentioned below. 87-year-old female with past medical history of dyslipidemia, hypertension, atrial fibrillation, chronic diastolic congestive heart failure, complete heart block status post pacemaker, asthma, diabetes mellitus type 2, iron deficiency anemia and history of CAD presented to the hospital with acute respiratory failure with hypoxemia secondary to asthma exacerbation. Patient was admitted to the hospital started on oxygen supplement, bronchodilators, steroids. Also patient was started on Lasix for diuresis as patient did have an element of congestive heart failure also she was found to have a UTI present on admission. , Started on levofloxacin. Lactinex for C. difficile prophylaxis. continue home medications Urine Cx showed E coli resistant to levofloxacin , ceftriaxone was added to cover UTI Patient still with significant improvement. Cleared by plant cytologist for discharge, LV function is mildly reduced General Appearance: not in acute distress Eyes: normal Sclerae, extraocular muscle intact ENT: hearing grossly normal Neck: supple Respiratory/Chest:decrease air entry bilateral ,no severe respiratory distress , no accessory muscle use, positive for scattered rhonchi Cardiovascular: regular rate, rhythm, no murmur Abdomen: non tender, soft, no masses Extremities: no edema musculoskeletal: no significant swelling or inflammation in any joint Neurologic/Psychiatric: Awake alert oriented times place and person moves all extremities sensation intact cranial nerves II-12 appear to be intact Skin: normal color, warm/dry, no rash Taylor Garza MD, [facility] hospitalist group Total Time Spent: Greater than 30 minutes This includes examination of the patient, discharge planning, medication reconciliation, and communication with other providers. Discharge Instructions Please refer to the electronic Patient Visit Report (Discharge Instructions) for additional information. Additional Copies To Eusebio Gipson M.D.
[2017-11-21] MEDS ORDERED: WARFARIN SOD 7.5 MG TAB PO SCH (16:00)
[2017-11-22] MEDS ORDERED: CEFUROXIME AXETIL 250 MG TAB PO SCH (09:00)
[2017-11-22] MEDS ORDERED: LEVOFLOXACIN 250 MG TAB PO SCH (11:00)
== END 2017-11-21 15:35 | disposition home or self-care (01) | DRG 291 ==
LOC: EDBD 06:06 → C.EDA 06:09 → C.MED 07:44 → ENRESERV 08:12
PROVIDERS: ADMIT Internal Medicine; ATTEND Internal Medicine
DX: I11.0 Hypertensive heart disease with heart failure (principal); J96.21 Acute and chronic respiratory failure with hypoxia; J45.901 Unspecified asthma with (acute) exacerbation; A04.71 Enterocolitis due to Clostridium difficile, recurrent; I44.2 Atrioventricular block, complete; I47.2 Ventricular tachycardia; N39.0 Urinary tract infection, site not specified; B96.20 Unspecified Escherichia coli [E. coli] as the cause of diseases classified elsewhere; Z16.23 Resistance to quinolones and fluoroquinolones; Z16.11 Resistance to penicillins; Z16.19 Resistance to other specified beta lactam antibiotics; I50.33 Acute on chronic diastolic (congestive) heart failure; R79.1 Abnormal coagulation profile; J40 Bronchitis, not specified as acute or chronic; I25.10 Atherosclerotic heart disease of native coronary artery without angina pectoris; I48.2 Chronic atrial fibrillation; J44.9 Chronic obstructive pulmonary disease, unspecified; E11.9 Type 2 diabetes mellitus without complications; D50.9 Iron deficiency anemia, unspecified; Z95.0 Presence of cardiac pacemaker; Z95.3 Presence of xenogenic heart valve; Z79.01 Long term (current) use of anticoagulants; Z79.2 Long term (current) use of antibiotics; Z79.51 Long term (current) use of inhaled steroids; Z79.52 Long term (current) use of systemic steroids; Z79.899 Other long term (current) drug therapy; Z88.8 Allergy status to other drugs, medicaments and biological substances

== ENCOUNTER 2018-08-30 12:08 | Inpatient (IN) ==
[2018-08-30 13:44] LABS: Hematocrit (blood only) 36.7 % (37-47); Hemoglobin 11.8 g/dL (12.0-16.0); Mean Corpuscular Hgb Conc 32.2 g/dL (32-36); Mean Corpuscular Volume 88.6 fL (80-100); Mean Platelet Volume 9.7 fL (7.4-10.4); Platelet Count 242 K/uL (130-400); RDW Coefficient of Variation 13.7 % (11.5-14.5); RDW Standard Deviation 44.3 fL (36.4-46.3); Red Blood Count 4.14 M/uL (4.2-5.4); White Blood Count 7.14 K/uL (4.8-10.8)
[2018-08-30 14:01] LABS: Albumin Level 3.7 gm/dl (3.4-5.0); BUN Creatinine Ratio 39.4 (10-20); Calcium 9.6 mg/dl (8.5-10.1); Creatinine Clr Calc Pharmacy 41.9 ml/min; Est GFR (African American) 74.5; Est GFR (Non-African American) 64.3; Potassium 4.3 mmol/L (3.5-5.1)
[2018-08-30 14:03] LABS: Albumin Globulin Ratio 1.2 (0.9-2); Bilirubin,Total 0.6 mg/dl (0.2-1); Partial Thromboplastin Ratio 1.4; Partial Thromboplastin Time 37.3 Seconds (21.0-31.0); Prothrombin Time 34.7 Seconds (9.0-12.0); Total Protein 6.7 gm/dl (6.4-8.2)
[2018-08-30] MEDS ORDERED: PANTOprazole 40 MG in SYRINGE 0 ML IV ONE (14:10)
[2018-08-30] MEDS ORDERED: SODIUM CHLORIDE 0.9% 1000ML 1,000 ML IV ONE (14:10)
[2018-08-30 14:12] LABS: INR 3.7 (0.9-1.1)
[2018-08-30] MEDS ORDERED: OPTIRAY 320 125ml IV PRN (14:52)
--- NOTE | 2018-08-30 15:13 | CT Scan Report ---
ABDOMEN AND PELVIS CT WITH IV CONTRAST CT DOSE: 299.67 mGy.cm HISTORY: gi bleed abd pain TECHNIQUE: Multiaxial CT images of the abdomen and pelvis were performed following the use of intrave nous contrast. A dose lowering technique was utilized adhering to the principles of ALARA. COMPARISON STUDY: None. FINDINGS: Nodular density within the right lateral lung base. This is indeterminate but could represe nt scarring or atelectasis. The heart is mildly enlarged. Pacemaker wires are noted. Postoperative ch anges and cardiac valve prostheses are noted. No pneumoperitoneum. No pneumatosis. No suspicious lyti c or blastic osseous lesions. Mild heterogeneous enhancement within the liver. No hepatic masses. The gallbladder is surgically absent. This likely accounts for the mild intra hepatic bile duct dilatati on. The pancreas, spleen, adrenal glands are unremarkable. There is a 1.8 cm enhancing exophytic mass within the upper pole the left kidney. Therefore, this is consistent with a renal cell carcinoma. Ad ditional small hypodense lesions within the kidneys are technically too small to characterize but lik cammy represent cysts. No hydronephrosis. No retroperitoneal or mesenteric lymphadenopathy. The uterus and bilateral adnexa are unremarkable. The bladder is decompressed and not well evaluated. However, t here appears to be bladder wall thickening. Mild pelvic floor collapse. Multiple colonic diverticula. No bowel wall thickening or obstruction. Evidence for prior mesh repair of a left inguinal hernia. T here is a 3 cm lipoma within a jejunal loop within the left upper quadrant. IMPRESSION: 1. No bowel wall thickening or obstruction. 2. A 1.8 cm enhancing exophytic mass within the upper pole of the left kidney. This is consistent wit h a renal cell carcinoma. 3. Colonic diverticulosis. No evidence for diverticulitis. 4. Nodular density within the lateral base of the right lung. This favors an area of scarring. 5. Heterogeneous enhancement within the liver. No focal masses identified. Recommend correlation with LFTs to exclude underlying hepatic pathology. 6. Bladder wall thickening. Recommend correlation with urinalysis to exclude a cystitis. Electronically signed by: Rubén Brar M.D. 08/30/2018 3:12 PM
--- NOTE | 2018-08-30 16:13 | History & Physical Report ---
Date of Service August 30, 2018 Assessment & Plan (1) GI bleed: 87 y/o F Hx COPD, AF - Coumadin, AVR, MVR - bioprosthetic, HTN, HLD, DM II , diastolic CHF, pacer, history of subdural hematoma and prior GI bleed. The pt has had diarrhea for a few days. She has had 2 tests for C diff which proved negative. Today she noted black stool and then stool mixed with bright blood. She does not have a fever or abdominal pain. A CT of the abdomen did not display any colitis. There is an incidental finding of a L 1.8cm mass renal mass consistent with a renal cell CA. She is not anemic on admission. Labs are notable for an elevated BUN only. 1) Diarrhea and GI bleed - unclear if upper or lower. she does not display anemia or hemodynamic instability. We will place her on IVF, IV PPi, serial Hb , GI consult requested. We will obtain stool cultures - C diff was negative 2 days ago. The pt is kept NPO excepting essential meds. We have provided IV K and will recheck an INR PM. 2) AF - we will continue Metoprolol for rate. Coumadin is held INR on admission is 3.7 3) CHF - she is receiving IVF and we have held Lasix pending AM reassessment. Volume status bears monitoring. Carvedilol is continued. 4) HTN, HLD - she is statin-intolerant - Lisinopril and Lasix are held - cont Carvedilol 5) COPD - PRN Albuterol and Qvar provided 6) The pt was informed og the incidental renal mass finding. Outpt f/u will be important as this can be a highly vascular mass prone to bleeding and she needs Coumadin. Full code - SCDs Total time for this admit including review of labs, meds, imaging, records - discussion with pt and ER attending - 40 min Present on Admission?: Yes History of Present Illness Chief Complaint: Diarrhea and bleeding Primary Care Provider: Eusebio Gipson MD 87 y/o F Hx COPD, AF - Coumadin, AVR, MVR - bioprosthetic, HTN, HLD, DM II, diastolic CHF, pacer, history of subdural hematoma and prior GI bleed. The pt has had diarrhea for a few days. She has had 2 tests for C diff which proved negative. Today she noted black stool and then stool mixed with bright blood. She does not have a fever or abdominal pain. A CT of the abdomen did not display any colitis. There is an incidental finding of a L 1.8cm mass renal mass consistent with a renal cell CA. She is not anemic on admission. Labs are notable for an elevated BUN only. 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 She had her mitral valve replaced with a bioprosthetic valve and her tricuspid valve repaired. It is thought that her issues were due to rheumatic fever as a child. Social: Does not drink or smoke - maintains independence Family: Noncontributory 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 Verified 08/30/18 13:39 2004 atorvastatin AdvReac Severe diarrhea Verified 08/30/18 13:39 and leg cramps metformin AdvReac Severe diarrhea Verified 08/30/18 13:39 pitavastatin AdvReac Severe joint Verified 08/30/18 13:39 pain, diarrhea ezetimibe AdvReac Unknown myalgias, Verified 08/30/18 13:39 increased LFT simvastatin AdvReac Unknown myalgias, Verified 08/30/18 13:39 increased LFTs Home Medications Home Medications Medication Instructions Recorded Confirmed Type albuterol sulfate [ProAir HFA] 2 puff INHALATION Q4H PRN 08/30/18 08/30/18 History aspirin [Aspir-81] 81 mg PO DAILY 08/30/18 08/30/18 History beclomethasone dipropionate [Qvar 1 puff INHALATION UD 08/30/18 08/30/18 History RediHaler] calcium carbonate-vitamin D3 1 tab PO DAILY 08/30/18 08/30/18 History [Calcium 500 + D] carvedilol [Coreg] 6.25 mg PO BID 08/30/18 08/30/18 History coenzyme Q10 [Co Q-10] 100 mg PO DAILY 08/30/18 08/30/18 History furosemide [Lasix] 20 mg PO DAILY 08/30/18 08/30/18 History lisinopril 40 mg PO DAILY 08/30/18 08/30/18 History multivitamin with minerals 1 tab PO DAILY 08/30/18 08/30/18 History warfarin 7.5 mg PO 4XWK 08/30/18 08/30/18 History warfarin 10 mg PO 3XWK 08/30/18 08/30/18 History Past Med/Surg History Medical History Acute respiratory failure with hypoxia (Chronic) Social History Current Living Situation: Alone Current Living Situation Comment: live in snf appt/[facility] [place] [place] Other Information That Helps Us Care for You: No Feels Safe at Home: Yes Safety Concerns: Feels Safe At This Time Smoking Status: Never smoker Do You Dip or Chew Tobacco: No Hx Alcohol Use: No Hx Substance Use: No Beliefs That Will Affect Care: Judaism Judaism Beliefs: Catholic Preferred Language: Iranian Communication Ability: Effective Mold Inspector Required: No Review of Systems Gen: Denies fevers, night sweats, rigors, fatigue, malaise, weight loss/gain ENT: Denies congestion, throat pain, hearing loss Eyes: Denies acute visual changes CV: Denies CP, palpitations Pulmonary: Denies SOB, cough, wheezing GI: Diarrhea x 1 week - black stool and bright blood x 1 day Neuro: Denies acute or unilateral weakness, acute gait impairment, headache or acute visual changes Musculoskeletal: Denies joint pain, inflammation Endocrine: Denies polydipsia, polyuria Skin: Denies acute rashes or ulcers Physical Exam 2 Vital Signs (Past 24 Hours): Last Vital Signs Temp 36.7 C 08/30/18 12:25 Pulse 60 08/30/18 15:46 Resp 16 08/30/18 15:46 BP 120/61 08/30/18 15:46 Pulse Ox 98 08/30/18 15:46 Physical Exam: General: Loquacious, elderly F, AAO x 3, no distress ENT: No erythema or exudates, no thrush Eyes: FINN, EOMI Head and neck: Normocephalic, atraumatic, No JVD, neck is supple. Chest/heart: Irr, slight murmur and a click audible Lungs: CTAB, no wheezing or crackles Abdomen: Nontender, nondistended, BS+ Neuro: AAO x 3, speech is clear, no unilateral weakness or loss of sensation, coordination intact Musculoskeletal: No joint inflammation, muscle tenderness, FROM Skin: No acute rashes or ulcers Extremities: No clubbing, cyanosis, edema Results & Data Diagnostic Findings CT abdomen: 1. No bowel wall thickening or obstruction. 2. A 1.8 cm enhancing exophytic mass within the upper pole of the left kidney. This is consistent with a renal cell carcinoma. 3. Colonic diverticulosis. No evidence for diverticulitis. 4. Nodular density within the lateral base of the right lung. This favors an area of scarring. 5. Heterogeneous enhancement within the liver. No focal masses identified. Recommend correlation with LFTs to exclude underlying hepatic pathology. 6. Bladder wall thickening. Recommend correlation with urinalysis to exclude a cystitis.
[2018-08-30] MEDS ORDERED: ALBUTEROL HFA 8 GM INHALER INH PRN (19:20)
[2018-08-30] MEDS ORDERED: ONDANSETRON INJ 2 MG/ML 2 ML VIAL IV PRN (19:20)
[2018-08-30] MEDS ORDERED: ACETAMINOPHEN 325 MG TAB PO PRN (19:20)
[2018-08-30] MEDS ORDERED: ALUMINUM/MAGNESIUM SUSP 30 ML UDC PO PRN (19:20)
[2018-08-30] MEDS ORDERED: MAGNESIUM HYDROXIDE SUSP 30 ML UDC PO PRN (19:20)
[2018-08-30] MEDS ORDERED: BECLOMETHASONE DIP HFA 80 MCG 8.7G INH INH SCH (19:20)
[2018-08-30] MEDS: SODIUM CHLORIDE 0.9% 1000ML 1,000 ML IV SCH (19:45)
[2018-08-30] MEDS ORDERED: PHYTONADIONE 5 MG in SODIUM CHLORIDE 0.9% 50 ML IV ONE (19:45)
[2018-08-30] MEDS: PANTOprazole 40 MG in SYRINGE 0 ML IV SCH (21:19)
[2018-08-30] MEDS: CARVEDILOL 6.25 MG TAB PO SCH (21:23)
--- NOTE | 2018-08-30 22:04 | Emergency Department Note ---
Entered by Cayetano Viera acting as a scribe for History of Present Illness General Chief complaint: Diarrhea Stated complaint: DIARRHEA Source: patient History of Present Illness Provider complaint: diarrhea Onset (ago): week(s) 1 Location: abdomen (diarrhea) Pain Consistency: + other (sudden) Maximum Pain Intensity: 0 Quality: + other (sudden) Associated symptoms: + denies other symptoms (abdominal pain, dysuria) and + other (melena, hematochezia, ) Treatments prior to arrival: none (Imodium A-D) The patient is an 87 year old female who presents to the Emergency Room with complaints of sudden diarrhea that started approximately a week ago. The patient states that she has been taking imodium A-D which provided minimal relief, but reports that she was going to the bathroom 3 to 4 times prior to starting the imodium. The patient reports occasional nausea, but denies any abdominal pain or dysuria. The patient also reports that today she noticed bright red blood in her stool and has noticed her stool is black and tarry. The patient reports that she has been tested twice for C. diff and was negative both times. She also reports that the other day when she got to the doctor, she lost control of her bowels even after she had a BM prior to going to the doctors. Home Medications Home Medications Medication Instructions Recorded Confirmed Type albuterol sulfate [ProAir HFA] 2 puff INHALATION Q4H PRN 08/30/18 08/30/18 History aspirin [Aspir-81] 81 mg PO DAILY 08/30/18 08/30/18 History beclomethasone dipropionate [Qvar 1 puff INHALATION UD 08/30/18 08/30/18 History RediHaler] calcium carbonate-vitamin D3 1 tab PO DAILY 08/30/18 08/30/18 History [Calcium 500 + D] carvedilol [Coreg] 6.25 mg PO BID 08/30/18 08/30/18 History coenzyme Q10 [Co Q-10] 100 mg PO DAILY 08/30/18 08/30/18 History furosemide [Lasix] 20 mg PO DAILY 08/30/18 08/30/18 History lisinopril 40 mg PO DAILY 08/30/18 08/30/18 History multivitamin with minerals 1 tab PO DAILY 08/30/18 08/30/18 History warfarin 7.5 mg PO [id number] 08/30/18 08/30/18 History warfarin 10 mg PO [id number] 08/30/18 08/30/18 History 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 Verified 08/30/18 13:39 2005 atorvastatin AdvReac Severe diarrhea Verified 08/30/18 13:39 and leg cramps metformin AdvReac Severe diarrhea Verified 08/30/18 13:39 pitavastatin AdvReac Severe joint Verified 08/30/18 13:39 pain, diarrhea ezetimibe AdvReac Unknown myalgias, Verified 08/30/18 13:39 increased LFT simvastatin AdvReac Unknown myalgias, Verified 08/30/18 13:39 increased LFTs Past Med/Surg History Medical History Acute respiratory failure with hypoxia (Chronic) Social History Current Living Situation: Alone Current Living Situation Comment: [facility] app[facility] [place] Other Information That Helps Us Care for You: No Feels Safe at Home: Yes Safety Concerns: Feels Safe At This Time Smoking Status: Never smoker Do You Dip or Chew Tobacco: No Hx Alcohol Use: No Hx Substance Use: No Beliefs That Will Affect Care: Buddhist Buddhist Beliefs: Jew Preferred Language: Luxembourgish Communication Ability: Effective Applicator Sprayer Required: No Review of Systems See HPI for pertinent positives & negatives. and A total of 10 systems reviewed and were otherwise negative Physical Exam Vital Signs Vital Signs - 24 hr 08/30/18 12:25 08/30/18 14:21 08/30/18 14:24 Temperature 36.7 C Temperature Source Oral Sepsis Recent Fever Within 48 Hours No Sepsis New/Unexplained Change in Mental Status No Sepsis Action Taken by Nursing No Action Required Pulse Rate - Lying 60 Pulse Rate - Sitting 63 Pulse Rate - Standing 65 Pulse Rate 71 Pulse Rate [Left Finger] 81 Respiratory Rate 16 20 Respiratory Effort / Characteristics Non-Labored Spontaneous Non-Labored Spontaneous Respiratory Depth Normal Normal Respiratory Pattern Regular Regular Blood Pressure - Lying 138/65 Blood Pressure - Sitting 149/71 H Blood Pressure- Standing 149/78 H Blood Pressure [Left Arm] Blood Pressure [Right Arm] 149/78 H Blood Pressure Mean [Left Arm] Blood Pressure Mean [Right Arm] 101 Blood Pressure Position Sitting Blood Pressure Position [Left Arm] Blood Pressure Position [Right Arm] Lying Pulse Oximetry 96 94 Oxygen Delivery Method Room Air Room Air 08/30/18 15:46 08/30/18 16:15 08/30/18 16:30 Temperature Temperature Source Sepsis Recent Fever Within 48 Hours Sepsis New/Unexplained Change in Mental Status Sepsis Action Taken by Nursing Pulse Rate - Lying Pulse Rate - Sitting Pulse Rate - Standing Pulse Rate Pulse Rate [Left Finger] 60 60 Respiratory Rate 16 18 Respiratory Effort / Characteristics Respiratory Depth Respiratory Pattern Blood Pressure - Lying Blood Pressure - Sitting Blood Pressure- Standing Blood Pressure [Left Arm] Blood Pressure [Right Arm] 120/61 140/67 Blood Pressure Mean [Left Arm] Blood Pressure Mean [Right Arm] 80 91 Blood Pressure Position Blood Pressure Position [Left Arm] Blood Pressure Position [Right Arm] Pulse Oximetry 98 94 Oxygen Delivery Method Room Air Room Air Room Air 08/30/18 18:19 08/30/18 19:05 08/30/18 21:20 Temperature 36.4 C L Temperature Source Oral Sepsis Recent Fever Within 48 Hours Sepsis New/Unexplained Change in Mental Status Sepsis Action Taken by Nursing Pulse Rate - Lying Pulse Rate - Sitting Pulse Rate - Standing Pulse Rate Pulse Rate [Left Finger] 60 81 57 L Respiratory Rate 18 20 Respiratory Effort / Characteristics Respiratory Depth Respiratory Pattern Blood Pressure - Lying Blood Pressure - Sitting Blood Pressure- Standing Blood Pressure [Left Arm] 113/58 L Blood Pressure [Right Arm] 107/50 L 133/78 Blood Pressure Mean [Left Arm] 76 Blood Pressure Mean [Right Arm] 69 96 Blood Pressure Position Blood Pressure Position [Left Arm] Lying Blood Pressure Position [Right Arm] Right Lateral Pulse Oximetry 93 94 Oxygen Delivery Method Room Air Room Air GENERAL: Sitting up in bed, alert, disheveled, uncomfortable appearing, well nourished, no distress, non-toxic EYE EXAM: normal conjunctiva. OROPHARYNX: no exudate, no erythema, lips, buccal mucosa, and tongue normal and mucous membranes are moist NECK: supple, no nuchal rigidity, no adenopathy, non-tender LUNGS: Clear to auscultation. Normal chest wall mechanics HEART: no murmurs, S1 normal and S2 normal ABDOMEN: abdomen soft, non-tender, normo-active bowel, sounds, no masses, no rebound or guarding. Melanotic stool, heme positive. BACK: Back is symmetrical on inspection and there is no deformity, no midline tenderness, no CVA tenderness. SKIN: no rashes and no bruising UPPER EXTREMITIES: upper extremities are grossly normal. LOWER EXTREMITIES: No pitting edema. NEURO EXAM: Normal sensorium, cranial nerves II-XII grossly intact, normal speech, no gross weakness of arms, no gross weakness of legs. Gross sensation intact. Course ED COURSE: Vital signs were reviewed and showed the patient was hypertensive. The patients medical record was reviewed The above diagnostic studies were performed and reviewed. ED treatments and interventions as stated above. 1402: The patient was evaluated in room D9. A complete history and physical examination was performed. 1518: I checked in on and updated the patient on her test results. 1830: [facility] the [facility] will [facility] the patient for further management. 1857: Upon reevaluation, the patient is doing okay. I discussed my findings with the patient and she understands and agrees with the treatment plan. Based on the patients age, coexisting illnesses, exam and lab findings the decision to treat as an inpatient was made. The patient remained stable while under my care. The patient will be evaluated for further management. Consultations Consultation #1[facility] Time: 18:30 Administered Medications Carvedilol (Coreg) 6.25 mg PO BID ESSENCE Stop: 09/29/18 20:59 Last Admin: 08/30/18 21:23 Dose: Not Given Sodium Chloride (Nss 1000ml) 1,000 mls @ 80 mls/hr IV .[id number] ESSENCE Stop: 08/31/18 20:19 Last Admin: 08/30/18 19:45 Dose: 80 mls/hr Pantoprazole Sodium 40 mg/ (Syringe) 10 mls @ 5 mls/min IV Q12H ESSENCE Stop: 09/29/18 20:59 Last Admin: 08/30/18 21:19 Dose: 5 mls/min Ioversol (Optiray 320 125ml) 115 ml IV ONCE PRN PRN Reason: Interaction Checking Stop: 09/03/18 14:51 Last Admin: 08/30/18 14:53 Dose: 115 ml Discontinued Medications Sodium Chloride (Nss 1000ml) 1,000 mls @ 999 mls/hr IV .Q1H1M ONE Stop: 08/30/18 15:10 Last Infusion: 08/30/18 16:15 Dose: 0 mls/hr Admin: 08/30/18 14:26 Dose: 999 mls/hr Pantoprazole Sodium 40 mg/ (Syringe) 10 mls @ 5 mls/min IV NOW ONE Stop: 08/30/18 14:11 Last Admin: 08/30/18 14:25 Dose: 5 mls/min Phytonadione 5 mg/ Sodium (Chloride) 50.5 mls @ 101 mls/hr IV 1945 ONE Stop: 08/30/18 20:14 Last Admin: 08/30/18 21:14 Dose: 101 mls/hr Medical Decision Making Differential Diagnosis Differential: Viral, Bacterial, Parasitic, Iatrogenic, C-Diff, Malabsorbtion, Irritable Bowel Disease, IBS, Ischemic Bowel, amongst other pathologies entertained. Medical Records Attestation: I reviewed the patient's medical records. Home Medications Current Medication List: was personally reviewed by me Laboratory Data Attestation: I reviewed the patient's lab results. Result diagrams: 08/30/18 19:28 08/30/18 13:25 Lab Results 08/30/18 08/30/18 08/30/18 Range/Units 13:20 13:25 13:25 WBC 7.14 (4.8-10.8) K/uL RBC 4.14 L (4.2-5.4) M/uL Hgb 11.8 L (12.0-16.0) g/dL Hct 36.7 L (37-47) % MCV 88.6 (80-100) fL MCH 28.5 (25-34) pg MCHC 32.2 (32-36) g/dL RDW Std Deviation 44.3 (36.4-46.3) fL RDW Coeff of Amarilis 13.7 (11.5-14.5) % Plt Count 242 (130-400) K/uL MPV 9.7 (7.4-10.4) fL PT 34.7 H (9.0-12.0) Seconds INR 3.7 H (0.9-1.1) APTT 37.3 H (21.0-31.0) Seconds PTT Ratio 1.4 Sodium (136-145) mmol/L Potassium (3.5-5.1) mmol/L Chloride (98-107) mmol/L Carbon Dioxide (21-32) mmol/L Anion Gap (3-11) BUN (7-18) mg/dl Creatinine (0.6-1.2) mg/dl Est Cr Clr Drug Dosing ml/min Est GFR ( Amer) Est GFR (Non-Af Amer) BUN/Creatinine Ratio (10-20) Glucose (70-99) mg/dl Calcium (8.5-10.1) mg/dl Total Bilirubin (0.2-1) mg/dl AST (15-37) U/L ALT (12-78) U/L Alkaline Phosphatase (45-117) U/L Total Protein (6.4-8.2) gm/dl Albumin (3.4-5.0) gm/dl Globulin (2.5-4.0) gm/dl Albumin/Globulin Ratio (0.9-2) POC Stool Occult Blood (Negative) Blood Type O Positive Antibody Screen NEGATIVE 08/30/18 08/30/18 08/30/18 Range/Units 13:25 13:35 19:28 WBC (4.8-10.8) K/uL RBC (4.2-5.4) M/uL Hgb 10.6 L (12.0-16.0) g/dL Hct (37-47) % MCV (80-100) fL MCH (25-34) pg MCHC (32-36) g/dL RDW Std Deviation (36.4-46.3) fL RDW Coeff of Amarilis (11.5-14.5) % Plt Count (130-400) K/uL MPV (7.4-10.4) fL PT (9.0-12.0) Seconds INR (0.9-1.1) APTT (21.0-31.0) Seconds PTT Ratio Sodium 138 (136-145) mmol/L Potassium 4.3 (3.5-5.1) mmol/L Chloride 102 (98-107) mmol/L Carbon Dioxide 29 (21-32) mmol/L Anion Gap 8.0 (3-11) BUN 33 H (7-18) mg/dl Creatinine 0.83 (0.6-1.2) mg/dl Est Cr Clr Drug Dosing 41.9 ml/min Est GFR ( Amer) 74.5 Est GFR (Non-Af Amer) 64.3 BUN/Creatinine Ratio 39.4 H (10-20) Glucose 127 H (70-99) mg/dl Calcium 9.6 (8.5-10.1) mg/dl Total Bilirubin 0.6 (0.2-1) mg/dl AST 23 (15-37) U/L ALT 27 (12-78) U/L Alkaline Phosphatase 122 H (45-117) U/L Total Protein 6.7 (6.4-8.2) gm/dl Albumin 3.7 (3.4-5.0) gm/dl Globulin 3.0 (2.5-4.0) gm/dl Albumin/Globulin Ratio 1.2 (0.9-2) POC Stool Occult Blood Positive H (Negative) Blood Type Antibody Screen Imaging Data Radiologist's Impression: Radiology results as stated below per my review and the radiologist's interpretation: ABDOMEN AND PELVIS CT WITH IV CONTRAST CT DOSE: 299.67 mGy.cm HISTORY: gi bleed abd pain TECHNIQUE: Multiaxial CT images of the abdomen and pelvis were performed following the use of intravenous contrast. A dose lowering technique was utilized adhering to the principles of ALARA. COMPARISON STUDY: None. FINDINGS: Nodular density within the right lateral lung base. This is indeterminate but could represent scarring or atelectasis. The heart is mildly enlarged. Pacemaker wires are noted. Postoperative changes and cardiac valve prostheses are noted. No pneumoperitoneum. No pneumatosis. No suspicious lytic or blastic osseous lesions. Mild heterogeneous enhancement within the liver. No hepatic masses. The gallbladder is surgically absent. This likely accounts for the mild intra hepatic bile duct dilatation. The pancreas, spleen, adrenal glands are unremarkable. There is a 1.8 cm enhancing exophytic mass within the upper pole the left kidney. Therefore, this is consistent with a renal cell carcinoma. Additional small hypodense lesions within the kidneys are technically too small to characterize but likely represent cysts. No hydronephrosis. No retroperitoneal or mesenteric lymphadenopathy. The uterus and bilateral adnexa are unremarkable. The bladder is decompressed and not well evaluated. However, there appears to be bladder wall thickening. Mild pelvic floor collapse. Multiple colonic diverticula. No bowel wall thickening or obstruction. Evidence for prior mesh repair of a left inguinal hernia. There is a 3 cm lipoma within a jejunal loop within the left upper quadrant. IMPRESSION: 1. No bowel wall thickening or obstruction. 2. A 1.8 cm enhancing exophytic mass within the upper pole of the left kidney. This is consistent with a renal cell carcinoma. 3. Colonic diverticulosis. No evidence for diverticulitis. 4. Nodular density within the lateral base of the right lung. This favors an area of scarring. 5. Heterogeneous enhancement within the liver. No focal masses identified. Recommend correlation with LFTs to exclude underlying hepatic pathology. 6. Bladder wall thickening. Recommend correlation with urinalysis to exclude a cystitis. Electronically signed by: Rubén Brar M.D. 08/30/2018 3:12 PM Blood Pressure Blood Pressure Findings: Low blood pressure Blood Pressure Disposition: did not require urgent referral MDM Narrative Patient is an 87-year-old female who presents the ER for persistent diarrhea which has been present for the past week associated with dark tarry stools present for the past 2 days. She does take Coumadin for aortic and mitral valve replacements. Upon presentation vitals were fairly unremarkable. Labs were obtained and showed a hemoglobin of 10.6. No significant leukocytosis. INR was 3.7. BMP along with LFTs was unremarkable. Hemoccult showed dark tarry stools which was heme positive. She does admit to bright red blood as well for the past 24 hours. Abdominal exam is fairly unremarkable. CT abdomen pelvis was remarkable for a possible renal cell carcinoma which was discussed with the patient at bedside. She was typed and crossed. Due to heme positive stools associated with anticoagulation I did discuss with the hospitalist. She was given Protonix due to the dark tarry stools. She was updated bedside and discussed with the hospitalist for further observation. I did not reverse her due to aortic and mitral valve repairs and her hemoglobin of 10 with normal vital signs as I believe this is likely a slow bleed. Discussed with Pt concerning signs and symptoms to watch out for. Pt was instructed to follow up with their PCP and discussed with the patient their option to return to the ED at anytime for persistent or worsening symptoms. The appropriate anticipatory guidance and out-patient management, including indications for return to the emergency department, were explained at length to the patient and understood. Impression & Plan GI bleed, Renal carcinoma Discharge Plan Visit Data *Final* Discharge Date/Time: 08/30/18 18:36 Chief Complaint: Diarrhea Stated Complaint: DIARRHEA ED Provider: Milton Hopper Discharge Problem: GI bleed, Renal carcinoma Patient Disposition: Admitted As Inpatient Discharge Instructions Interventions: ED Discharge Assessment Last Done: 08/30/18 18:36 The scribe's documentation has been prepared under my direction and personally reviewed by me in its entirety. I confirm that the note above accurately reflects all work, treatment, procedures, and medical decision making performed by me.
[2018-08-30 23:34] LABS: INR 2.5 (0.9-1.1); Prothrombin Time 23.9 Seconds (9.0-12.0)
[2018-08-31 04:00] LABS: BUN Creatinine Ratio 34.2 (10-20); Calcium 8.3 mg/dl (8.5-10.1); Creatinine Clr Calc Pharmacy 45.1 ml/min; Est GFR (African American) 81.6; Est GFR (Non-African American) 70.4; Magnesium 1.7 mg/dl (1.8-2.4); Potassium 3.9 mmol/L (3.5-5.1)
[2018-08-31 04:04] LABS: Basophils # (auto) 0.02 K/uL (0-0.2); Basophils % (auto) 0.4 %; Eosinophils # (auto) 0.08 K/uL (0-0.5); Eosinophils % (auto) 1.6 %; Hematocrit (blood only) 30.4 % (37-47); Hemoglobin 9.8 g/dL (12.0-16.0); Immature Granulocytes # (auto) 0.01 K/uL (0.00-0.02); Immature Granulocytes % (auto) 0.2 %; Lymphocytes # (auto) 0.77 K/uL (1.2-3.4); Mean Corpuscular Hgb Conc 32.2 g/dL (32-36); Mean Corpuscular Volume 89.7 fL (80-100); Mean Platelet Volume 9.9 fL (7.4-10.4); Monocytes % (auto) 7.8 %; Neutrophils # (auto) 3.84 K/uL (1.4-6.5); Platelet Count 209 K/uL (130-400); RDW Coefficient of Variation 13.9 % (11.5-14.5); RDW Standard Deviation 45.6 fL (36.4-46.3); Red Blood Count 3.39 M/uL (4.2-5.4); White Blood Count 5.12 K/uL (4.8-10.8)
[2018-08-31] MEDS: SODIUM CHLORIDE 0.9% 1000ML 1,000 ML IV SCH (08:41)
[2018-08-31] MEDS: CARVEDILOL 6.25 MG TAB PO SCH ×2 (08:43→20:35)
[2018-08-31] MEDS: PANTOprazole 40 MG in SYRINGE 0 ML IV SCH ×2 (08:44→20:36)
[2018-08-31] MEDS ORDERED: MAGNESIUM SULFATE / D5W 1 GM/100 ML BAG IV ONE (09:00)
--- NOTE | 2018-08-31 09:49 | Hospitalist Progress Note ---
Date of Service August 31, 2018 Assessment & Plan (1) GI bleed: 87 y/o F admitted August 30, 2018 because of diarrhea and black stool and then stool mixed with bright blood. Bloody stool, possible GI bleeding, A CT of the abdomen did not display any colitis. Diarrhea , C. difficile was negative prior to admission, and no more diarrhea since admission Continue on IVF, IV PPi 40mg iv bid, serial Hb, GI consult requested. Follow-up results of stool cultures Continue NPO excepting essential meds. A. fib on Coumadin, INR was 3.7 upon admission today is 2.5, Patient was provided IV K upon admission Possible proximal atrial fibrillation, currently is regular rhythm, continue Metoprolol , continue hold Coumadin, CHF, will continue gentle IV fluid, watch for fluid overload, Carvedilol is continued. Hx COPD, AVR, MVR - bioprosthetic, HTN, HLD, DM II, pacer, stable continue current medication, history of subdural hematoma stable continue 1 Incidental renal mass finding. Outpt f/u will be important as this can be a highly vascular mass prone to bleeding and she needs Coumadin, I emphasized this to patient again Full code - SCDs (2) Renal carcinoma: (3) C. difficile diarrhea: Subjective Pleasant, conversational No more bloody stool, no diarrhea since admission, Denied dizziness, denied chest pain Review of Systems Constitutional: Positive weakness, or fatigue Respiratory: no cough, sputum, wheezing, or dyspnea on exertion Cardiac: No chest pain, No orthopnea,No palpitations, Abdomen: No pain, No nausea, No vomiting, No diarrhea, No constipation, No GI bleeding Musculoskeletal: No joint pain, No muscle pain, No swelling, No calf pain, No problem reported : No dysuria, No urinary frequency, No incontinence, No hematuria Neurologic: No paralysis, No weakness, No numbness/tingling, Psychiatric: No depression symptoms, No anhedonism, No anxiety, No insomnia, No substance abuse Heme: No abnormal bleeding/bruising, Skin: No rash, No itch, No new/changing skin lesions, No color change, No bleeding Physical Exam 2 Vital Signs (Past 24 Hours): Last Vital Signs Temp 37.1 C 08/31/18 07:56 Pulse 66 08/31/18 07:56 Resp 20 08/31/18 07:56 BP 113/66 08/31/18 07:56 Pulse Ox 93 08/31/18 07:56 Physical Exam: General Appearance: WD/WN, no apparent distress, no obvious pale, Eyes: normal inspection, PERRL, EOMI, sclerae normal ENT: normal ENT inspection, hearing grossly normal, pharynx normal Neck: supple, no adenopathy, thyroid normal, no JVD, no carotid bruits, trachea midline Respiratory/Chest: chest non-tender, normal breath sounds, no respiratory distress, no accessory muscle use, breath sounds, rales, wheezing Cardiovascular: regular rate, rhythm, no JVD, no murmur 1+ edema, Abdomen: normal bowel sounds, non tender, soft, no organomegaly, Extremities: normal range of motion, non-tender, normal inspection, calf tenderness, and gentle palpation however this is not new, normal capillary refill, pelvis stable, joint has no limited range of motion, capillary refill is normal, no cyanosis clubbing Neurologic/Psychiatric: floor cleaner II-XII nml as tested, no motor/sensory deficits, alert, normal mood/affect, oriented x 3 Skin: normal color, warm/dry, no rash Lymphatic: no adenopathy Results & Data Laboratory Results Laboratory Results - last 24 hr 08/30/18 08/30/18 08/30/18 13:20 13:25 13:25 WBC 7.14 RBC 4.14 L Hgb 11.8 L Hct 36.7 L MCV 88.6 MCH 28.5 MCHC 32.2 RDW Std Deviation 44.3 RDW Coeff of Amarilis 13.7 Plt Count 242 MPV 9.7 Immature Gran % (Auto) Neut % (Auto) Lymph % (Auto) [place] % (Auto) Eos % (Auto) Baso % (Auto) Immature Gran # (Auto) Neut # (Auto) Lymph # (Auto) [place] # (Auto) Eos # (Auto) Baso # (Auto) PT 34.7 H INR 3.7 H APTT 37.3 H PTT Ratio 1.4 Sodium Potassium Chloride Carbon Dioxide Anion Gap BUN Creatinine Est Cr Clr Drug Dosing Est GFR ( Amer) Est GFR (Non-Af Amer) BUN/Creatinine Ratio Glucose Calcium Magnesium Total Bilirubin AST ALT Alkaline Phosphatase Total Protein Albumin Globulin Albumin/Globulin Ratio POC Stool Occult Blood Stl C. diff Tox B Gene Blood Type O Positive Antibody Screen NEGATIVE 08/30/18 08/30/18 08/30/18 13:25 13:35 19:28 WBC RBC Hgb 10.6 L Hct MCV MCH MCHC RDW Std Deviation RDW Coeff of Amarilis Plt Count MPV Immature Gran % (Auto) Neut % (Auto) Lymph % (Auto) [place] % (Auto) Eos % (Auto) Baso % (Auto) Immature Gran # (Auto) Neut # (Auto) Lymph # (Auto) [place] # (Auto) Eos # (Auto) Baso # (Auto) PT INR APTT PTT Ratio Sodium 138 Potassium 4.3 Chloride 102 Carbon Dioxide 29 Anion Gap 8.0 BUN 33 H Creatinine 0.83 Est Cr Clr Drug Dosing 41.9 Est GFR ( Amer) 74.5 Est GFR (Non-Af Amer) 64.3 BUN/Creatinine Ratio 39.4 H Glucose 127 H Calcium 9.6 Magnesium Total Bilirubin 0.6 AST 23 ALT 27 Alkaline Phosphatase 122 H Total Protein 6.7 Albumin 3.7 Globulin 3.0 Albumin/Globulin Ratio 1.2 POC Stool Occult Blood Positive H Stl C. diff Tox B Gene Blood Type Antibody Screen 08/30/18 08/30/18 08/31/18 23:12 23:12 03:25 WBC 5.12 RBC 3.39 L Hgb 10.1 L 9.8 L Hct 30.4 L MCV 89.7 MCH 28.9 MCHC 32.2 RDW Std Deviation 45.6 RDW Coeff of Amarilis 13.9 Plt Count 209 MPV 9.9 Immature Gran % (Auto) 0.2 Neut % (Auto) 75.0 Lymph % (Auto) 15.0 [place] % (Auto) 7.8 Eos % (Auto) 1.6 Baso % (Auto) 0.4 Immature Gran # (Auto) 0.01 Neut # (Auto) 3.84 Lymph # (Auto) 0.77 L [place] # (Auto) 0.40 Eos # (Auto) 0.08 Baso # (Auto) 0.02 PT 23.9 H INR 2.5 H APTT PTT Ratio Sodium Potassium Chloride Carbon Dioxide Anion Gap BUN Creatinine Est Cr Clr Drug Dosing Est GFR ( Amer) Est GFR (Non-Af Amer) BUN/Creatinine Ratio Glucose Calcium Magnesium Total Bilirubin AST ALT Alkaline Phosphatase Total Protein Albumin Globulin Albumin/Globulin Ratio POC Stool Occult Blood Stl C. diff Tox B Gene Blood Type Antibody Screen 08/31/18 08/31/18 03:25 05:30 WBC RBC Hgb Hct MCV MCH MCHC RDW Std Deviation RDW Coeff of Amarilis Plt Count MPV Immature Gran % (Auto) Neut % (Auto) Lymph % (Auto) [place] % (Auto) Eos % (Auto) Baso % (Auto) Immature Gran # (Auto) Neut # (Auto) Lymph # (Auto) [place] # (Auto) Eos # (Auto) Baso # (Auto) PT INR APTT PTT Ratio Sodium 142 Potassium 3.9 Chloride 109 H Carbon Dioxide 29 Anion Gap 4.0 BUN 26 H Creatinine 0.77 Est Cr Clr Drug Dosing 45.1 Est GFR ( Amer) 81.6 Est GFR (Non-Af Amer) 70.4 BUN/Creatinine Ratio 34.2 H Glucose 85 Calcium 8.3 L Magnesium 1.7 L Total Bilirubin AST ALT Alkaline Phosphatase Total Protein Albumin Globulin Albumin/Globulin Ratio POC Stool Occult Blood Stl C. diff Tox B Gene Neg C.diff Toxin B Blood Type Antibody Screen _ (1) Renal carcinoma Laterality: unspecified laterality Qualified Code(s): C64.9 - Malignant neoplasm of unspecified kidney, except renal pelvis
[2018-08-31 11:00] LABS: Vitamin B12 227 pg/ml (211-911)
[2018-08-31 11:01] LABS: Folate (Folic Acid) > 24.00 ng/ml (>5.38)
--- NOTE | 2018-08-31 21:27 | Consultation Report ---
DATE OF CONSULTATION: 08/31/2018 ATTENDING PHYSICIAN: Dr. Shiva Flores. REASON FOR CONSULTATION: Persistent diarrhea with GI bleeding. HISTORY OF PRESENT ILLNESS: Nellie Rocha is an 87-year-old female who presented to the Department of Emergency Medicine on 08/30/2018 with complaints of diarrhea that had been occurring for approximately 1 week, with occasional nausea and some bright red blood per rectum. She also noted some black tarry stools at times. She had previously been treated for C. difficile colitis though has had 2 recent stool tests that were negative. She was noted on laboratory studies to have a white blood cell count of 7.14, with a hemoglobin of 11.8, hematocrit of 36.7, and a platelet count of 242. She did undergo CT scan of her abdomen and pelvis, which showed no bowel wall thickening or obstruction but did note a 1.8 cm enhancing exophytic mass within the upper pole of the left kidney consistent with a renal cell carcinoma. She was supratherapeutic on her INR, which was noted to be 3.7 as she is on Coumadin therapy for aortic and mitral valve replacements. She was subsequently admitted and given Protonix 40 mg IV q.12 h. She also was given 5 mg of IV vitamin K to reverse her INR. Laboratory studies today did show decline in her H and H to 9.8 and 30.4, and her INR decreased from 3.7 to 2.5. At the time that I saw the patient, she denied any further diarrhea or black stools. She states that she is feeling much better and stated that she would like to avoid any invasive testing unless it is absolutely necessary due to her multiple medical comorbidities. She denied any abdominal pain, fevers, chills, nausea, vomiting, hematemesis, melena, or hematochezia at present. Further denied any jaundice, acholic stools, dark urine, or pruritus and had no further complaints. PAST MEDICAL HISTORY: Notable for hypertension, hyperlipidemia, COPD, atrial fibrillation, type 2 diabetes, diastolic heart failure, history of subdural hematoma, history of a brain aneurysm, history of C. difficile. PAST SURGICAL HISTORY: Includes both aortic and mitral valve replacements, pacemaker placement, tricuspid valve repair. ALLERGIES: HEPARIN, ATORVASTATIN, METFORMIN, EZETIMIBE, ZOCOR, PITAVASTATIN. MEDICATIONS AT PRESENT: Albuterol via inhaler 2 puffs q.4 p.r.n., Maalox 30 mL p.o. q.6 p.r.n. dyspepsia, beclomethasone 1 puff via inhaler daily as directed, Coreg 6.25 mg p.o. b.i.d., magnesium hydroxide 30 mL p.o. q.6 p.r.n. constipation, Zofran 4 mg IV q.6 p.r.n. nausea, Protonix 40 mg IV q.12 h. SOCIAL HISTORY: Negative tobacco, alcohol, or illicit drug use. FAMILY HISTORY: Negative for GI malignancy or inflammatory bowel disease. REVIEW OF SYSTEMS: Negative times a 12-system review other than pertinent positives as in the HPI. PHYSICAL EXAMINATION: VITAL SIGNS: Include a temperature of 37.1, pulse 66, respirations 20, blood pressure 113/66, pulse oximetry 93% on room air. GENERAL: Awake, cooperative, chronic ill appearing, in no acute distress. HEAD: Normocephalic and atraumatic. EYES: Pupils equally round. ENT: External evaluation of ears and nose is normal. Oropharynx is clear. NECK: Soft and supple. CHEST: Clear to auscultation bilaterally. CARDIOVASCULAR SYSTEM: Regular rate and rhythm. GASTROINTESTINAL: Abdomen is soft, nontender, nondistended. Positive bowel sounds. There is no hepatosplenomegaly or stigmata of chronic liver disease. EXTREMITIES: No clubbing, cyanosis, or edema. LABORATORY STUDIES/RADIOGRAPHIC STUDIES: Reviewed in the HPI. IMPRESSION: An 87-year-old female with diarrhea and both melena and hematochezia, currently hemodynamically stable, without further episodes of diarrhea. PLAN: At the present time, I would recommend supportive care. I would continue her on Protonix 40 mg IV b.i.d. She does not wish to undergo any invasive testing unless it is absolutely necessary, and as she is not having overt GI bleeding at present, I would recommend continuing supportive measures and transfusing her to maintain an H and H of at least 8 and 24. If she has further episodes of overt bleeding during this hospitalization, consideration could be made to performing endoscopic workup if the patient is agreeable. I will follow her clinical course and make further recommendations. Once again, thanks for allowing me to participate in the care of this patient.
[2018-09-01 00:16] VITALS: O2SAT 94
[2018-09-01 06:07] LABS: Basophils # (auto) 0.02 K/uL (0-0.2); Basophils % (auto) 0.5 %; Eosinophils % (auto) 2.7 %; Hematocrit (blood only) 29.5 % (37-47); Hemoglobin 9.5 g/dL (12.0-16.0); Lymphocytes # (auto) 0.99 K/uL (1.2-3.4); Mean Corpuscular Hgb Conc 32.2 g/dL (32-36); Mean Corpuscular Volume 89.9 fL (80-100); Mean Platelet Volume 9.7 fL (7.4-10.4); Monocytes # (auto) 0.29 K/uL (0.11-0.59); Monocytes % (auto) 7.9 %; Neutrophils # (auto) 2.26 K/uL (1.4-6.5); Neutrophils % (auto) 61.9 %; Platelet Count 202 K/uL (130-400); RDW Coefficient of Variation 14.1 % (11.5-14.5); Red Blood Count 3.28 M/uL (4.2-5.4); White Blood Count 3.66 K/uL (4.8-10.8)
[2018-09-01 06:39] LABS: Calcium 8.2 mg/dl (8.5-10.1); Creatinine Clr Calc Pharmacy 46.9 ml/min; Est GFR (African American) 85.6; Est GFR (Non-African American) 73.9; Magnesium 1.8 mg/dl (1.8-2.4); Phosphorus 3.4 mg/dl (2.5-4.9); Potassium 3.7 mmol/L (3.5-5.1)
[2018-09-01] MEDS: CARVEDILOL 6.25 MG TAB PO SCH (07:49)
[2018-09-01] MEDS: PANTOprazole 40 MG in SYRINGE 0 ML IV SCH (07:49)
[2018-09-01 07:54] VITALS: PULSE 62; TEMP 98.4
[2018-09-01 09:32] LABS: INR 1.1 (0.9-1.1); Prothrombin Time 11.3 Seconds (9.0-12.0)
--- NOTE | 2018-09-01 09:54 | Discharge Summary ---
Date of Service September 01, 2018 Admission HPI Per Admitting Provider 87 y/o F Hx COPD, AF - Coumadin, AVR, MVR - bioprosthetic, HTN, HLD, DM II, diastolic CHF, pacer, history of subdural hematoma and prior GI bleed. The pt has had diarrhea for a few days. She has had 2 tests for C diff which proved negative. Today she noted black stool and then stool mixed with bright blood. She does not have a fever or abdominal pain. A CT of the abdomen did not display any colitis. There is an incidental finding of a L 1.8cm mass renal mass consistent with a renal cell CA. She is not anemic on admission. Labs are notable for an elevated BUN only. 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 She had her mitral valve replaced with a bioprosthetic valve and her tricuspid valve repaired. It is thought that her issues were due to rheumatic fever as a child. Social: Does not drink or smoke - maintains independence Family: Noncontributory Principal Diagnosis no Discharge Data 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 Verified 08/30/18 13:39 2004 atorvastatin AdvReac Severe diarrhea Verified 08/30/18 13:39 and leg cramps metformin AdvReac Severe diarrhea Verified 08/30/18 13:39 pitavastatin AdvReac Severe joint Verified 08/30/18 13:39 pain, diarrhea ezetimibe AdvReac Unknown myalgias, Verified 08/30/18 13:39 increased LFT simvastatin AdvReac Unknown myalgias, Verified 08/30/18 13:39 increased LFTs Consultations 08/30/18 15:17 ED Decision to Admit Stat 08/30/18 19:20 Consult Gastroenterology Routine Ordered Studies 08/30/18 14:10 CT abd pelvis IV con only Stat Hospital Course (1) GI bleed: (2) Renal carcinoma: (3) C. difficile diarrhea: 87 y/o F admitted August 30, 2018 because of diarrhea and black stool and then stool mixed with bright blood. No more bright red blood today Bloody stool, possible GI bleeding, no more red blood in stool, And walk and no dizziness Hemoglobin 9.5 which is stable compared to yesterday A CT of the abdomen did not display any colitis. 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 difficile was negative prior to admission, and no more diarrhea since admission Has been on continue on IVF, IV PPi 40mg iv bid, serial Hb, GI consult A. fib on Coumadin, INR was 3.7 upon admission today is 2.5, Patient was provided IV K upon admission, will restart the Coumadin, recommend target Coumadin level at 2.0-2.5, PCP please follow-up this proximal atrial fibrillation, currently is regular rhythm, continue Metoprolol , continue hold Coumadin, CHF, will continue gentle IV fluid, watch for fluid overload, Carvedilol is continued. Hx COPD, AVR, MVR - bioprosthetic, HTN, HLD, DM II, pacer, stable continue current medication, history of subdural hematoma stable continue Incidental renal mass finding. Possible kidney cancer in the left, though patient and patient's son about this, Outpt f/u will be important as this can be a highly vascular mass prone to bleeding and she needs Coumadin, I emphasized this to patient again, PCP please follow-up referral to urology if needed Upon discharge today, I discussed with patient and patient's son about all the medical conditions and care plan, patient want to go home with the risk of worsening GI bleeding, I recommend her to be seen by PCP in 3-5 days, have labs checked, At the same time I want her to call PCP if any questions Full code - SCDs Discharge instructions below you possible have GI bleeding, Gastroenterology saw you, you declined further invasive evaluation such as EGD, need to continue Protonix 40 mg p.o. twice daily You have A. fib on Coumadin, INR was 3.7 upon admission , will recommend continue Coumadin for now however will recommend target the INR level around 2- 2.5, not more than 2.5 if possible You have history of subdural hematoma stable continue You have incidental renal mass finding. Need to follow-up with PCP and referral to urologist if needed Subjective upon discharge: Pleasant, conversational No more bloody stool, no diarrhea since admission, Denied dizziness, denied chest pain Review of Systems upon discharge Constitutional: no weakness, or fatigue Respiratory: no cough, sputum, wheezing, or dyspnea on exertion Cardiac: No chest pain, No orthopnea,No palpitations, Abdomen: No pain, No nausea, No vomiting, No diarrhea, No constipation, No GI bleeding Musculoskeletal: No joint pain, No muscle pain, No swelling, No calf pain, No problem reported : No dysuria, No urinary frequency, No incontinence, No hematuria Neurologic: No paralysis, No weakness, No numbness/tingling, Psychiatric: No depression symptoms, No anhedonism, No anxiety, No insomnia, No substance abuse Heme: No abnormal bleeding/bruising, Skin: No rash, No itch, No new/changing skin lesions, No color change, No bleeding Physical Exam upon discharge General Appearance: WD/WN, no apparent distress, no obvious pale, Eyes: normal inspection, PERRL, EOMI, sclerae normal ENT: normal ENT inspection, hearing grossly normal, pharynx normal Neck: supple, no adenopathy, thyroid normal, no JVD, no carotid bruits, trachea midline Respiratory/Chest: chest non-tender, normal breath sounds, no respiratory distress, no accessory muscle use, breath sounds, rales, wheezing Cardiovascular: regular rate, rhythm, no JVD, no murmur 1+ edema, Abdomen: normal bowel sounds, non tender, soft, no organomegaly, Extremities: normal range of motion, non-tender, normal inspection, calf tenderness, and gentle palpation however this is not new, normal capillary refill, pelvis stable, joint has no limited range of motion, capillary refill is normal, no cyanosis clubbing Neurologic/Psychiatric: staff design engineer II-XII nml as tested, no motor/sensory deficits, alert, normal mood/affect, oriented x 3 Skin: normal color, warm/dry, no rash Lymphatic: no adenopathy Lab data upon discharge: Laboratory Results - last 24 hr 08/31/18 08/31/18 09/01/18 10:14 10:14 05:34 WBC 3.66 L RBC 3.28 L Hgb 9.5 L Hct 29.5 L MCV 89.9 MCH 29.0 MCHC 32.2 RDW Std Deviation 46.0 RDW Coeff of Amarilis 14.1 Plt Count 202 MPV 9.7 Immature Gran % (Auto) 0.0 Neut % (Auto) 61.9 Lymph % (Auto) 27.0 Willacy % (Auto) 7.9 Eos % (Auto) 2.7 Baso % (Auto) 0.5 Immature Gran # (Auto) 0.00 Neut # (Auto) 2.26 Lymph # (Auto) 0.99 L Willacy # (Auto) 0.29 Eos # (Auto) 0.10 Baso # (Auto) 0.02 PT INR Sodium Potassium Chloride Carbon Dioxide Anion Gap BUN Creatinine Est Cr Clr Drug Dosing Est GFR ( Amer) Est GFR (Non-Af Amer) BUN/Creatinine Ratio Glucose Calcium Phosphorus Magnesium Vitamin B12 227 Folate Cancelled > 24.00 09/01/18 09/01/18 05:34 08:52 WBC RBC Hgb Hct MCV MCH MCHC RDW Std Deviation RDW Coeff of Amarilis Plt Count MPV Immature Gran % (Auto) Neut % (Auto) Lymph % (Auto) Willacy % (Auto) Eos % (Auto) Baso % (Auto) Immature Gran # (Auto) Neut # (Auto) Lymph # (Auto) Willacy # (Auto) Eos # (Auto) Baso # (Auto) PT 11.3 INR 1.1 Sodium 141 Potassium 3.7 Chloride 109 H Carbon Dioxide 28 Anion Gap 4.0 BUN 18 Creatinine 0.74 Est Cr Clr Drug Dosing 46.9 Est GFR ( Amer) 85.6 Est GFR (Non-Af Amer) 73.9 BUN/Creatinine Ratio 24.0 H Glucose 92 Calcium 8.2 L Phosphorus 3.4 Magnesium 1.8 Vitamin B12 Folate Microbiology 08/31/18 05:30 Stool Escherichia coli Shiga Toxins - Preliminary 08/31/18 05:30 Stool Stool Culture - Preliminary No Salmonella isolated to date, No Shigella isolated to date, No Campylobacter jejuni isolated to date. Total Time Total Time Spent Total Time Spent (In Minutes): 35 Total Time Includes: Examination of the Patient, Discharge Planning, Medication Reconciliation and Communication With Other Providers Discharge Plan Discharge Items Patient Disposition: Home - Self-Care Reason For Visit: GI BLEED, DIARRHEA Discharge Diagnosis: Possible GI bleeding, however patient declines scope renal mass Condition: Fair Discharge Goals: Decrease discomfort, Diagnostic testing and Improve disease control Activity: Resume your previous activity Non-emergency contact: Primary Care Provider and Shell Molding Roller Blast Operator Call non-emergency contact if: you have any medication questions Diet: Heart Healthy Addtl Provider Instructions: you possible have GI bleeding, Gastroenterology saw you, you declined further invasive evaluation such as EGD, need to continue Protonix 40 mg p.o. twice daily You have A. fib on Coumadin, INR was 3.7 upon admission , will recommend continue Coumadin for now however will recommend target the INR level around 2- 2.5, not more than 2.5 if possible You have history of subdural hematoma stable continue You have incidental renal mass finding. Need to follow-up with PCP and referral to urologist if needed you need to follow up with your primary care physician in 3-5 , check lab of BMP, CBC, PT/INR and a follow-up visit with PCP -take medication as instructed, never overdose or any misuse, or take with alcohol, because misuse of medicine may cause organ damage or , call me , or your primary care physician if have questions of discharge medicaitons. - call your primary care physician, or go to local emergency room if has any fever/chill, chest pain, shortness of breathing, nausea/vomiting/abdominal pain , facial droop/slurry speech/local weakness, or if has any questions. - fall precaution - diet as instructed - you need to follow up with your subspecialist, such as Case - Prescriptions: New pantoprazole [Protonix] [address] for susp in packet 40 mg PO BID 28 Days RF: 0 Continue carvedilol [Coreg] 6.25 mg Tablet 6.25 mg PO BID RF: 0 warfarin 10 mg Tablet 10 mg PO 3XWK RF: 0 warfarin 7.5 mg Tablet 7.5 mg PO 4XWK RF: 0 aspirin [Aspir-81] 81 mg Tablet,Delayed Release (Dr/Ec) 81 mg PO DAILY RF: 0 furosemide [Lasix] 20 mg Tablet 20 mg PO DAILY RF: 0 multivitamin with minerals Tablet 1 tab PO DAILY RF: 0 albuterol sulfate [ProAir HFA] 90 mcg/actuation HFA aerosol inhaler 2 puff Inhalation Q4H PRN (Reason: Shortness Of Breath) RF: 0 lisinopril 40 mg Tablet 40 mg PO DAILY RF: 0 coenzyme Q10 [Co Q-10] 100 mg Capsule 100 mg PO DAILY RF: 0 calcium carbonate-vitamin D3 [Calcium 500 + D] 500 mg(1,250mg) -400 unit Tablet 1 tab PO DAILY RF: 0 beclomethasone dipropionate [Qvar RediHaler] 80 mcg/actuation HFA aerosol breath activated 1 puff Inhalation UD RF: 0 Visit Report Forms: My [facility] Portal Stand-Alone Forms: [facility] Discharge Orders: Discharge Order (Routine); Ordered 09/01/18 Ordered By: Jean Lacy Admission Data Admit Date/Time: 08/30/18 16:05 Attending Provider: Jean Lacy Admit Provider: Shiva Flores Primary Care Provider: Eusebio Gipson Other Providers: Shiva Flores ; Piotr Sharma Service: Medical
[2018-09-01 12:08] VITALS: BP 113/66
--- NOTE | 2018-09-03 10:25 | Coding Query ---
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 Please assist us with the question(s) below: Coding Question(s): There is melena documented in this patient who is on Coumadin and there is elevated INR documented and the patient is treated with Vitamin K upon admission. The ER H&P documents, "Due to heme positive stools associated with anticoagulation I did discuss with the hospitalist." Please clarify below, in your clinical opinion. ( x ) Melena was likely due to combined upper GI bleeding and combined with effects from Coumadin ( ) Melena was Not likely due to Coumadin Physician's Response(s): Thank you Helena Cardenas Principal Diagnosis: "that condition established after study, to be chiefly responsible for occasioning the admission of the patient to the hospital for care." Co-Existing Principal Diagnosis: "when two or more diagnoses equally meet the criteria for principal diagnosis as determined by the circumstances of admission , diagnostic work up, and/or therapy provided, and the Alphabetic Index, Tabular List, or another coding guideline does not provide sequencing direction , any one of the diagnoses may be sequenced first." "When the physician has documented what appears to be a current diagnosis in the body of the record, but has not included the diagnosis in the final diagnostic statement, the physician should be asked whether the diagnosis should be added." (Source [facility] 2 QTR90. p3-4) MALINDA
--- NOTE | 2018-09-03 10:27 | Coding Query ---
CODING QUERY To promote full compliance with coding requirements relating to patient care, provider participation is requested in all cases of brewmaster uncertainty. Please assist us with the question(s) below: Coding Question(s): The Discharge Summary documents C. Difficile Diarrhea and documents that C. difficile was negative prior to admission, and no more diarrhea since admission. Please clarify below, in your clinical opinion, regarding C. Difficile Diarrhea. ( ) C. Difficile Diarrhea was present and treated during this admission ( x ) C. Difficile Diarrhea was Ruled-Out Physician's Response(s): Thank you Helena Cardenas Principal Diagnosis: "that condition established after study, to be chiefly responsible for occasioning the admission of the patient to the hospital for care." Co-Existing Principal Diagnosis: "when two or more diagnoses equally meet the criteria for principal diagnosis as determined by the circumstances of admission , diagnostic work up, and/or therapy provided, and the Alphabetic Index, Tabular List, or another coding guideline does not provide sequencing direction , any one of the diagnoses may be sequenced first." "When the physician has documented what appears to be a current diagnosis in the body of the record, but has not included the diagnosis in the final diagnostic statement, the physician should be asked whether the diagnosis should be added." (Source [facility]oding [facility] 2 QTR90. p3-4) DAVIDD
== END 2018-09-01 13:10 | disposition home or self-care (01) | DRG 813 ==
LOC: ED 12:08 → 4E 16:05 → SUATTDRO 16:05 → 4E 18:36

== ENCOUNTER 2021-05-14 20:05 | Observation (INO) ==
--- NOTE | 2021-05-14 20:31 | Emergency Department Note ---
History of Present Illness General Chief complaint: Neuro Symptoms/Deficit Stated complaint: SICK TO STOMACH, MEMORY LOSS Time Seen by Provider: 05/14/21 20:15 Source: patient and family (Son who is at the bedside) Mode of arrival: ambulatory Limitations: no limitations History of Present Illness This patient is an 89-year-old female who comes in after not feeling well. She she was forgetful and could remember sounds phone number she feels better now this lasted briefly and was about an hour and a half ago she had a similar episode in the past. During this episode she had no numbness or weakness no difficulty speaking or swallowing no change in vision. 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 She has been followed by a neurologist at [facility] and they recom mended against surgery given her age and comorbidities. She is had no headache. No fall or trauma. She is on Coumadin that she been on for many years. They recently decreased her dose because she was too thin. No significant chest pain she has had some nausea but no abdominal pain no dysuria hematuria. Home Medications Medication Instructions Recorded Confirmed Type Saccharomyces boulardii 250 mg 250 mg PO BID #180 cap 02/27/19 05/14/21 Rx capsule (Florastor) calcium carbonate 500 mg calcium 500 mg PO DAILY #90 tab 02/27/19 05/14/21 Rx (1,250 mg) tablet (Calcium 500) coenzyme Q10 100 mg capsule (Co 100 mg PO DAILY #90 cap 02/27/19 05/14/21 Rx Q-10) multivitamin with minerals 1 tab PO DAILY #90 tab 02/27/19 05/14/21 Rx carvedilol 6.25 mg tablet (Coreg) 6.25 mg PO BID #180 tab 10/18/20 05/14/21 Rx lisinopril 40 mg tablet 40 mg PO DAILY #90 tab 10/18/20 05/14/21 Rx warfarin 7.5 mg tablet 7.5 mg PO 6XWK #90 tab 11/29/20 05/14/21 Rx furosemide 20 mg tablet (Lasix) 20 mg PO DAILY tab 03/08/21 05/14/21 History warfarin 5 mg tablet 5 mg PO WK 05/14/21 05/14/21 History 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 Verified 05/14/21 21:19 2004 atorvastatin AdvReac Severe diarrhea Verified 05/14/21 21:19 and leg cramps metformin AdvReac Severe diarrhea Verified 05/14/21 21:19 pitavastatin AdvReac Severe joint Verified 05/14/21 21:19 pain, diarrhea ezetimibe AdvReac Intermediate myalgias, Verified 05/14/21 21:19 increased LFT simvastatin AdvReac Intermediate myalgias, Verified 05/14/21 21:19 increased LFTs Past Med/Surg History Medical History Aortic valve disorder Asthma Atrial fibrillation Atrioventricular block, complete Brain aneurysm PT FOLLOWS CLOSELY WITH [facility], [facility]. PT STATES THEY ARE CURRENTY WATCHING IT, BUT NO INTERVENTION AT THIS TIME. C. 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 detention (current) use of anticoagulants Medicare annual wellness visit, subsequent Mitral valve disease Neoplasm of kidney Renal carcinoma Rheumatic heart disease Type 2 diabetes mellitus Surgical History History of cholecystectomy History of colonoscopy History of esophagogastroduodenoscopy (EGD) History of eye surgery FOR INCREASED EYE PRESSURE/DOUBLE VISION History of heart valve replacement AORTIC VALVE REPLACEMENT (TOTAL 3 SURGERIES) History of herniorrhaphy History of hysterectomy History of tonsillectomy History of tricuspid valve annuloplasty S/P aortic valve replacement History of 3 aortic valve replacements S/P mitral valve replacement Family History Other Heart disease Hypertension Social History Smoking Status: Never smoker Second Hand Exposure: No; Hx Alcohol Use: No Hx Substance Use: No Preferred Language: Puerto Rican Communication Ability: Effective Supervisor Delivery Department Required: No Beliefs That Will Affect Care: None marital status: / Current Living Situation: Alone Current Living Situation Comment: [place] in [place] [facility] [place] Have Feels Safe at Home: Yes Childhood Exposure to Second-Hand Smoke: Yes Seatbelt Use: always Sunscreen Use: No Assistive Devices: Cane Review of Systems A total of 10 systems reviewed and were otherwise negative Physical Exam Vital Signs Vital Signs - 24 hr 05/14/21 20:11 05/14/21 20:33 05/14/21 20:56 Temperature 36.7 C Temperature Source Temporal Artery Scan Pulse Rate 78 72 Pulse Rate [Finger] 60 Pulse Rate from SpO2 Sensor 59 L Respiratory Rate 16 19 Respiratory Effort / Characteristics Non-Labored Spontaneous Respiratory Depth Normal Blood Pressure 128/69 137/77 Blood Pressure [Right Arm] 137/77 Blood Pressure Mean 88 97 Blood Pressure Mean [Right Arm] 97 Pulse Oximetry 94 95 93 Oxygen Delivery Method Room Air Room Air Oxygen Flow Rate Sepsis Recent Fever Within 48 Hours No Sepsis New/Unexplained Change in Mental Status No Sepsis Action Taken by Nursing No Action Required 05/14/21 22:06 05/14/21 22:15 05/14/21 22:30 Temperature Temperature Source Pulse Rate 67 63 60 Pulse Rate [Finger] Pulse Rate from SpO2 Sensor 71 63 60 Respiratory Rate 25 H 21 19 Respiratory Effort / Characteristics Respiratory Depth Blood Pressure 98/57 L 117/60 144/66 H Blood Pressure [Right Arm] Blood Pressure Mean 70 79 92 Blood Pressure Mean [Right Arm] Pulse Oximetry 97 97 97 Oxygen Delivery Method Oxymask Oxyhood Oxymask Oxygen Flow Rate 15 10 10 Sepsis Recent Fever Within 48 Hours Sepsis New/Unexplained Change in Mental Status Sepsis Action Taken by Nursing 05/14/21 22:50 Temperature Temperature Source Pulse Rate Pulse Rate [Finger] 60 Pulse Rate from SpO2 Sensor Respiratory Rate Respiratory Effort / Characteristics Respiratory Depth Blood Pressure Blood Pressure [Right Arm] 156/78 H Blood Pressure Mean Blood Pressure Mean [Right Arm] 104 Pulse Oximetry 98 Oxygen Delivery Method Oxymask Oxygen Flow Rate 10 Sepsis Recent Fever Within 48 Hours Sepsis New/Unexplained Change in Mental Status Sepsis Action Taken by Nursing General: Well developed well nourished older female who appears in no acute distress, breathing comfortably on room air. Normal speech HEENT: Normal cephalic atraumatic. Pupils are equal round and reactive to light. Extraocular movements are intact in the left eye. She has significant difficulty with ocular movements in the right eye that is baseline according to the son oropharynx is pink with moist mucous membranes. No swelling of the mouth lips or tongue. No facial asymmetry or droop Neck: Supple with a midline trachea. No meningeal signs or stiffness, no JVD or bruits. No Stridor. Chest: Clear to auscultation bilaterally. No wheezes or rhonchi. No increased work of breathing. Heart: Regular rate and rhythm without murmurs or gallops. Abdomen: Soft nontender, nondistended without rebound guarding or rigidity. Extremities: No cyanosis clubbing or edema. No calf tenderness or assymetry Spine/Back. Non tender to palpation. No CVA tenderness Skin: Good turgor without rashes. Neurologic exam: Cranial nerves two through 12 are intact. Motor and sensation are intact and symmetrical throughout. Course Administered Medications Discontinued Medications Diphenhydramine HCl (Diphenhydramine 50 Mg/Ml Vial) Confirm Administered Dose 50 mg .ROUTE .STK-MED ONE Stop: 05/14/21 21:59 Last Admin: 05/14/21 22:07 Dose: 12.5 mg Documented by: [id number] Sodium Chloride (Nss) 250 mls @ 999 mls/hr IV .Q16M ONE Stop: 05/14/21 22:28 Last Infusion: 05/14/21 22:36 Dose: 0 mls/hr Documented by: [id number] Admin: 05/14/21 22:14 Dose: 999 mls/hr Documented by: [id number] Ioversol (Optiray 320 125ml) 119 ml IV ONCE ONE Stop: 05/14/21 21:28 Last Admin: 05/14/21 21:27 Dose: 1 ml Documented by: [id number] Methylprednisolone (Methylprednisolone 125 Mg/2 Ml Vial) Confirm Administered Dose 125 mg .ROUTE .STK-MED ONE Stop: 05/14/21 22:00 Last Admin: 05/14/21 22:07 Dose: 125 mg Documented by: [id number] Medical Decision Making Differential Diagnosis TIA, CVA, aneurysm, intracranial hemorrhage, electrolyte or metabolic abnormality, infection, dehydration Medical Records Attestation: I reviewed the patient's medical records. Home Medications Current Medication List: was personally reviewed by me Laboratory Data Attestation: I reviewed the patient's lab results. Result diagrams: 05/14/21 20:54 05/14/21 20:54 Lab Results 05/14/21 05/14/21 05/14/21 Range/Units 20:54 20:54 20:54 WBC 4.29 L (4.8-10.8) K/uL RBC 4.36 (4.2-5.4) M/uL Hgb 12.4 (12.0-16.0) g/dL Hct 38.2 (37-47) % MCV 87.6 (80-100) fL MCH 28.4 (25-34) pg MCHC 32.5 (32-36) g/dL RDW Std Deviation 52.3 H (36.4-46.3) fL RDW Coeff of Amarilis 16.1 H (11.5-14.5) % Plt Count 177 (130-400) K/uL MPV 10.2 (7.4-10.4) fL Immature Gran % (Auto) 0.2 % Neut % (Auto) 67.6 % Lymph % (Auto) 18.9 % [place] % (Auto) 11.4 % Eos % (Auto) 1.2 % Baso % (Auto) 0.7 % Neut # (Auto) 2.90 (1.4-6.5) K/uL Lymph # (Auto) 0.81 L (1.2-3.4) K/uL [place] # (Auto) 0.49 (0.11-0.59) K/uL Eos # (Auto) 0.05 (0-0.5) K/uL Baso # (Auto) 0.03 (0-0.2) K/uL Immature Gran # (Auto) 0.01 (0.00-0.02) K/uL PT 24.6 H (9.0-12.0) Seconds INR 2.6 H (0.9-1.1) APTT 36.5 H (21.0-31.0) Seconds PTT Ratio 1.4 Sodium 139 (136-145) mmol/L Potassium 4.1 (3.5-5.1) mmol/L Chloride 103 (98-107) mmol/L Carbon Dioxide 32 (21-32) mmol/L Anion Gap 4.0 (3-11) BUN 31 H (7-18) mg/dl Creatinine 1.29 H (0.6-1.2) mg/dl Est Cr Clr Drug Dosing 21.7 ml/min Est GFR ( Amer) 42.8 ml/min Est GFR (Non-Af Amer) 36.9 ml/min BUN/Creatinine Ratio 24.1 H (10-20) Glucose 154 H (70-99) mg/dl POC Glucose (70-99) mg/dl Calcium 9.3 (8.5-10.1) mg/dl Magnesium 2.0 (1.8-2.4) mg/dl Total Bilirubin 1.2 H (0.2-1) mg/dl AST 45 H (15-37) U/L ALT 32 (12-78) U/L Alkaline Phosphatase 165 H (45-117) U/L Troponin I < 0.015 (0-0.045) ng/ml Total Protein 6.9 (6.4-8.2) gm/dl Albumin 3.7 (3.4-5.0) gm/dl Globulin 3.2 (2.5-4.0) gm/dl Albumin/Globulin Ratio 1.1 (0.9-2) COVID-19 Eval Order SARS-CoV-2 (PCR) (Negative) SARS-CoV-2, RNA, NAAT (NEGATIVE) 05/14/21 05/14/21 05/14/21 Range/Units 21:06 Unknown Unknown WBC (4.8-10.8) K/uL RBC (4.2-5.4) M/uL Hgb (12.0-16.0) g/dL Hct (37-47) % MCV (80-100) fL MCH (25-34) pg MCHC (32-36) g/dL RDW Std Deviation (36.4-46.3) fL RDW Coeff of Amarilis (11.5-14.5) % Plt Count (130-400) K/uL MPV (7.4-10.4) fL Immature Gran % (Auto) % Neut % (Auto) % Lymph % (Auto) % [place] % (Auto) % Eos % (Auto) % Baso % (Auto) % Neut # (Auto) (1.4-6.5) K/uL Lymph # (Auto) (1.2-3.4) K/uL [place] # (Auto) (0.11-0.59) K/uL Eos # (Auto) (0-0.5) K/uL Baso # (Auto) (0-0.2) K/uL Immature Gran # (Auto) (0.00-0.02) K/uL PT (9.0-12.0) Seconds INR (0.9-1.1) APTT (21.0-31.0) Seconds PTT Ratio Sodium (136-145) mmol/L Potassium (3.5-5.1) mmol/L Chloride (98-107) mmol/L Carbon Dioxide (21-32) mmol/L Anion Gap (3-11) BUN (7-18) mg/dl Creatinine (0.6-1.2) mg/dl Est Cr Clr Drug Dosing ml/min Est GFR ( Amer) ml/min Est GFR (Non-Af Amer) ml/min BUN/Creatinine Ratio (10-20) Glucose (70-99) mg/dl POC Glucose 136 H (70-99) mg/dl Calcium (8.5-10.1) mg/dl Magnesium (1.8-2.4) mg/dl Total Bilirubin (0.2-1) mg/dl AST (15-37) U/L ALT (12-78) U/L Alkaline Phosphatase (45-117) U/L Troponin I (0-0.045) ng/ml Total Protein (6.4-8.2) gm/dl Albumin (3.4-5.0) gm/dl Globulin (2.5-4.0) gm/dl Albumin/Globulin Ratio (0.9-2) COVID-19 Eval [facility] SARS-CoV-2 (PCR) (Negative) SARS-CoV-2, RNA, NAAT NEGATIVE (NEGATIVE) 05/14/21 05/14/21 Range/Units Unknown Unknown WBC (4.8-10.8) K/uL RBC (4.2-5.4) M/uL Hgb (12.0-16.0) g/dL Hct (37-47) % MCV (80-100) fL MCH (25-34) pg MCHC (32-36) g/dL RDW Std Deviation (36.4-46.3) fL RDW Coeff of Amarilis (11.5-14.5) % Plt Count (130-400) K/uL MPV (7.4-10.4) fL Immature Gran % (Auto) % Neut % (Auto) % Lymph % (Auto) % [place] % (Auto) % Eos % (Auto) % Baso % (Auto) % Neut # (Auto) (1.4-6.5) K/uL Lymph # (Auto) (1.2-3.4) K/uL [place] # (Auto) (0.11-0.59) K/uL Eos # (Auto) (0-0.5) K/uL Baso # (Auto) (0-0.2) K/uL Immature Gran # (Auto) (0.00-0.02) K/uL PT (9.0-12.0) Seconds INR (0.9-1.1) APTT (21.0-31.0) Seconds PTT Ratio Sodium (136-145) mmol/L Potassium (3.5-5.1) mmol/L Chloride (98-107) mmol/L Carbon Dioxide (21-32) mmol/L Anion Gap (3-11) BUN (7-18) mg/dl Creatinine (0.6-1.2) mg/dl Est Cr Clr Drug Dosing ml/min Est GFR ( Amer) ml/min Est GFR (Non-Af Amer) ml/min BUN/Creatinine Ratio (10-20) Glucose (70-99) mg/dl POC Glucose (70-99) mg/dl Calcium (8.5-10.1) mg/dl Magnesium (1.8-2.4) mg/dl Total Bilirubin (0.2-1) mg/dl AST (15-37) U/L ALT (12-78) U/L Alkaline Phosphatase (45-117) U/L Troponin I (0-0.045) ng/ml Total Protein (6.4-8.2) gm/dl Albumin (3.4-5.0) gm/dl Globulin (2.5-4.0) gm/dl Albumin/Globulin Ratio (0.9-2) COVID-19 Eval Order Covid19 at [facility] SARS-CoV-2 (PCR) NEGATIVE (Negative) SARS-CoV-2, RNA, NAAT (NEGATIVE) Imaging Data Attestation: I personally reviewed and interpreted this imaging study as follows: Radiologist's Impression: Head CT 05/14/21 20:27 CT head/brain wo con, CT angio head w con, CT angio neck with con Clinical Indication: [place] ^Stroke Like Symptoms . TECHNIQUE: Contiguous axial CT images of the head were acquired from the base of the skull to the vertex without intravenous contrast administration. CT angiography of the head and neck was performed following intravenous administration of iodinated contrast. Automated dose lowering techniques and/or adjustment according to patient size were utilized for this examination. Comparison: Comparison is made to CT head 03/08/2020 FINDINGS: CT head: Areas of decreased attenuation are present in the periventricular and s ubcortical white matter bilaterally consistent with small vessel ischemic disease. Generalized cerebral atrophy with commensurate enlargement of the ventricles, sulci, and cisterns is also present. There is no acute intracranial hemorrhage or evidence of acute territorial infarction. There is redemonstration of a partially calcified 30 x 23 mm lesion in the right clinoid region. Atherosclerotic calcifications are present in the intracranial segments of the internal carotid arteries. 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 Atherosclerotic plaque is present in the aortic arch and at the origin of the great vessels. There is no atherosclerotic plaque at the origins of the vertebral arteries. The common carotid, external carotid, cervical segments of the internal carotid arteries, and the cervical segments of the vertebral maninder brianne are patent. There is a focal region of calcification in the left vertebral artery which may represent hemodynamically significant stenosis. The vertebral arteries are codominant. CTA Head: The anterior and posterior cerebral circulations are patent. A tiny aneurysm of the basilar artery is seen measuring up to 5 mm. 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 Patent flow is seen extending to the anterior and middle cerebral arteries. Posterior cerebral art segundo and posterior circulation is unremarkable. Atherosclerotic disease is noted. IMPRESSION: 1. 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 No evidence of active extravasation or hemorrhage. 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 If not previously evaluated, CTA chest can be performed. Assessment of stenosis of the internal carotid arteries is based on NASCET criteria. ACT 112: Negative or not required by law. Electronically signed by: Delonte Norman M.D. 05/14/2021 10:09 PM Head CTA 05/14/21 20:27 CT head/brain wo con, CT angio head w con, CT angio neck with con Clinical Indication: MN ^Stroke Like Symptoms . TECHNIQUE: Contiguous axial CT images of the head were acquired from the base of the skull to the vertex without intravenous contrast administration. CT angiography of the head and neck was performed following intravenous administration of iodinated contrast. Automated dose lowering techniques and/or adjustment according to patient size were utilized for this examination. Comparison: Comparison is made to CT head 03/08/2020 FINDINGS: CT head: Areas of decreased attenuation are present in the periventricular and subcortical white matter bilaterally consistent with small vessel ischemic disease. Generalized cerebral atrophy with commensurate enlargement of the v entricles, sulci, and cisterns is also present. There is no acute intracranial hemorrhage or evidence of acute territorial infarction. There is redemonstration of a partially calcified 30 x 23 mm lesion in the right clinoid region. Atherosclerotic calcifications are present in the intracranial segments of the internal carotid arteries. 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 Atherosclerotic plaque is present in the aortic arch and at the origin of the great vessels. There is no atherosclerotic plaque at the origins of the vertebr al arteries. The common carotid, external carotid, cervical segments of the internal carotid arteries, and the cervical segments of the vertebral arteries are patent. There is a focal region of calcification in the left vertebral artery which may represent hemodynamically significant stenosis. The vertebral arteries are codominant. CTA Head: The anterior and posterior cerebral circulations are patent. A tiny aneurysm of the basilar artery is seen measuring up to 5 mm. 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 Patent flow is seen extending to the anterior and middle cerebral arteries. Posterior cerebral artery and posterior circulation is unremarkable. Atherosclerotic disease is noted. IMPRESSION: 1. 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 No evidence of active extravasation or hemorrhage. 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 If not previously evaluated, CTA chest can be performed. Assessment of stenosis of the internal carotid arteries is based on NASCET criteria. ACT 112: Negative or not required by law. Electronically signed by: Delonte Norman M.D. 05/14/2021 10:09 PM Neck CTA 05/14/21 20:27 CT head/brain wo con, CT angio head w con, CT angio neck with con Clinical Indication: MN ^Stroke Like Symptoms . TECHNIQUE: Contiguous axial CT images of the head were acquired from the base of the skull to the vertex without intravenous contrast administration. CT angiography of the head and neck was performed following intravenous administration of iodinated contrast. Automated dose lowering techniques and/or adjustment according to patient size were utilized for this examination. Comparison: Comparison is made to CT head 03/08/2020 FINDINGS: CT head: Areas of decreased attenuation are present in the periventricular and s ubcortical white matter bilaterally consistent with small vessel ischemic disease. Generalized cerebral atrophy with commensurate enlargement of the ventricles, sulci, and cisterns is also present. There is no acute intracranial hemorrhage or evidence of acute territorial infarction. There is redemonstration of a partially calcified 30 x 23 mm lesion in the right clinoid region. Atherosclerotic calcifications are present in the intracranial segments of the internal carotid arteries. 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 Atherosclerotic plaque is present in the aortic arch and at the origin of the great vessels. There is no atherosclerotic plaque at the origins of the vertebral arteries. The common carotid, external carotid, cervical segments of the internal carotid arteries, and the cervical segments of the vertebral maninder brianne are patent. There is a focal region of calcification in the left vertebral artery which may represent hemodynamically significant stenosis. The vertebral arteries are codominant. CTA Head: The anterior and posterior cerebral circulations are patent. A tiny aneurysm of the basilar artery is seen measuring up to 5 mm. 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 Patent flow is seen extending to the anterior and middle cerebral arteries. Posterior cerebral art segundo and posterior circulation is unremarkable. Atherosclerotic disease is noted. IMPRESSION: 1. 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 No evidence of active extravasation or hemorrhage. 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 If not previously evaluated, CTA chest can be performed. Assessment of stenosis of the internal carotid arteries is based on NASCET criteria. ACT 112: Negative or not required by law. Electronically signed by: Delonte Norman M.D. 05/14/2021 10:09 PM ECG Data Attestation: I personally reviewed and interpreted this ECG as follows: Indication: + weakness Rate (beats per minute): 62 Rhythm: + other (Ventricular paced rhythm) ECG Intervals/blocks: + Normal QT ECG [place]: + Normal ECG ST segments: + Normal ST segments ECG Findings: no PACs or no PVCs Comparison ECG Date: from (03-08-2020) Change: the following changes noted (Paced rhythm has replaced A. fib) Additional Comments: EKG #2ventricular paced rhythm with a rate of 61. No ac [place] ischemic changes or ectopy. Compared EKG #1 PVCs are now present MDM Narrative This patient comes in as described above. She was placed in room C6 on a residential monitor she had episode where she was forgetful and she is now better now she has a known aneurysm. A full stroke work-up was obtained again when I saw her she seems to be doing better and back at her neurologic baseline. She is on Coumadin. I did order CT as well as CT of the head neck as well as EKG. Multiple blood testing was obtained. I discussed her care with her son was at the bedside as well. She has no fever or white count to suggest infection. She is no significant anemia. Her INR is therapeutic at 2.6. EKG does not suggest acute coronary syndrome or arrhythmia. The nurses called me after the patient came back from CAT scan as she was complaining she was short of breath she was hypoxemic and very nauseated. When I going to see her she did appear to be in distress. She was itching but had no definite rash. She had no swelling mouth lips or tongue. She had no stridor or wheezes. I did repeat some vital signs and do an EKG which is unchanged she was given Benadryl 12.5 mg IV and Solu- Medrol 125 mg IV for possible allergic reaction to the contrast. With this she settled down. 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 It was not fully imaged and the radiologist had recommended that we could do a CTA. Given that she just had a contrast reaction but I felt that was not a good idea. The patient has had multiple valvular surgeries in the past. I am not sure the chronicity of this dissection and I do think that her symptoms are probably not related to this. We did look at the most recent's CAT scan we could find from her she is from 2012 it was a noncontrast CT as well as an echo did not demonstrate any dissection. I talked to the family and then talked to the thoracic surgeon at [facility] Dr. Jerome. He told me that they would not operate on her given her age and her history of valvular surgery that they would manage her conservatively. He said the surgery is very high risk and because of this they would not operate on her and recommended that we keep her here at our hospital. I then consulted Dr. Fierro. I discussed this with the son as well as the patient and they are in agreement with this. I did also discuss CODE STATUS as I told her that her aneurysm in her head or this dissection if they were to get worse could be an acute life threatening or ending event she acknowledges this. She does not want CPR or intubation and says when it is her time she is ready. She is in agreement with a DNR CODE STATUS as is the son. Continuous cardiac monitoring: Orders placed in EMR for continuous cardiac monitoring, on my interpretation there is a paced rhythm with a rate of 60 Impression & Plan Altered level of consciousness, Adverse effect of contrast media, Dissection of aortic arch, Nausea, Lab test negative for COVID-19 virus, DNR (do not r esuscitate) discussion Discharge Plan Visit Data Chief Complaint: Neuro Symptoms/Deficit Stated Complaint: SICK TO STOMACH, MEMORY LOSS ED Provider: Myles Beavers Discharge Problem: Altered level of consciousness, Adverse effect of contrast media, Dissection of aortic arch, Nausea, Lab test negative for COVID-19 virus, DNR (do not resuscitate) discussion Forms Stand Alone Forms: My [facility] Prescriptions Prescriptions: No Action lisinopril 40 mg tablet 40 mg PO DAILY Qty: 90 RF: 3 carvedilol [Coreg] 6.25 mg tablet 6.25 mg PO BID Qty: 180 RF: 3 warfarin 7.5 mg tablet 7.5 mg PO 6XWK Qty: 90 RF: 3 calcium carbonate [Calcium 500] 500 mg calcium (1,250 mg) tablet 500 mg PO DAILY Qty: 90 RF: 3 coenzyme Q10 [Co Q-10] 100 mg capsule 100 mg PO DAILY Qty: 90 RF: 3 Florastor 250 mg capsule 250 mg PO BID Qty: 180 RF: 3 multivitamin with minerals tablet 1 tab PO DAILY Qty: 90 RF: 3 furosemide [Lasix] 20 mg tablet 20 mg PO DAILY RF: 0 warfarin 5 mg tablet 5 mg PO WK RF: 0 Referrals Referrals: Eusebio Gipson MD [Primary Care Provider] -
[2021-05-14 21:04] LABS: Basophils # (auto) 0.03 K/uL (0-0.2); Basophils % (auto) 0.7 %; Eosinophils # (auto) 0.05 K/uL (0-0.5); Eosinophils % (auto) 1.2 %; Hematocrit (blood only) 38.2 % (37-47); Hemoglobin 12.4 g/dL (12.0-16.0); Immature Granulocytes # (auto) 0.01 K/uL (0.00-0.02); Immature Granulocytes % (auto) 0.2 %; Lymphocytes # (auto) 0.81 K/uL (1.2-3.4); Lymphocytes % (auto) 18.9 %; Mean Corpuscular Hemoglobin 28.4 pg (25-34); Mean Corpuscular Hgb Conc 32.5 g/dL (32-36); Mean Corpuscular Volume 87.6 fL (80-100); Mean Platelet Volume 10.2 fL (7.4-10.4); Monocytes # (auto) 0.49 K/uL (0.11-0.59); Monocytes % (auto) 11.4 %; Neutrophils % (auto) 67.6 %; Platelet Count 177 K/uL (130-400); RDW Coefficient of Variation 16.1 % (11.5-14.5); RDW Standard Deviation 52.3 fL (36.4-46.3); Red Blood Count 4.36 M/uL (4.2-5.4); White Blood Count 4.29 K/uL (4.8-10.8)
[2021-05-14 21:13] LABS: INR 2.6 (0.9-1.1); Partial Thromboplastin Ratio 1.4; Partial Thromboplastin Time 36.5 Seconds (21.0-31.0); Prothrombin Time 24.6 Seconds (9.0-12.0)
[2021-05-14 21:23] LABS: Alanine Aminotransferase 32 U/L (12-78); Albumin Level 3.7 gm/dl (3.4-5.0); Aspartate Aminotransferase 45 U/L (15-37); BUN Creatinine Ratio 24.1 (10-20); Blood Urea Nitrogen 31 mg/dl (7-18); Calcium 9.3 mg/dl (8.5-10.1); Carbon Dioxide 32 mmol/L (21-32); Chloride 103 mmol/L (98-107); Creatinine Clr Calc Pharmacy 21.7 ml/min; Est GFR (African American) 42.8 ml/min; Est GFR (Non-African American) 36.9 ml/min; Glucose 154 mg/dl (70-99); Potassium 4.1 mmol/L (3.5-5.1); Sodium 139 mmol/L (136-145)
[2021-05-14] MEDS ORDERED: OPTIRAY 320 125ml IV ONE (21:27)
[2021-05-14 21:28] LABS: Albumin Globulin Ratio 1.1 (0.9-2); Alkaline Phosphatase 165 U/L (45-117); Bilirubin,Total 1.2 mg/dl (0.2-1); Globulin 3.2 gm/dl (2.5-4.0); Total Protein 6.9 gm/dl (6.4-8.2); Troponin I < 0.015 ng/ml (0-0.045)
[2021-05-14] MEDS ORDERED: diphenhydrAMINE 50 MG/ML VIAL ONE (21:58)
[2021-05-14] MEDS ORDERED: methylPREDNISolone 125 MG/2 ML VIAL ONE (21:59)
--- NOTE | 2021-05-14 22:11 | CT Scan Report ---
CT head/brain wo con, CT angio head w con, CT angio neck with con Clinical Indication: MN ^Stroke Like Symptoms . TECHNIQUE: Contiguous axial CT images of the head were acquired from the base of the skull to the aby claudia without intravenous contrast administration. CT angiography of the head and neck was performed f ollowing intravenous administration of iodinated contrast. Automated dose lowering techniques and/or adjustment according to patient size were utilized for this examination. Comparison: Comparison is made to CT head 03/08/2020 FINDINGS: CT head: Areas of decreased attenuation are present in the periventricular and subcortical white scarlett er bilaterally consistent with small vessel ischemic disease. Generalized cerebral atrophy with comme nsurate enlargement of the ventricles, sulci, and cisterns is also present. There is no acute intracr anial hemorrhage or evidence of acute territorial infarction. There is redemonstration of a partially calcified 30 x 23 mm lesion in the right clinoid region. Atherosclerotic calcifications are present in the intracranial segments of the internal carotid arteries. 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 Atherosclerotic plaque is present in the aortic arch and at the origin of the great vessels. There is no atherosclerotic pl aque at the origins of the vertebral arteries. The common carotid, external carotid, cervical segment s of the internal carotid arteries, and the cervical segments of the vertebral arteries are patent. There is a focal region of calcification in the left vertebral artery which may represent hemodynamic ally significant stenosis. The vertebral arteries are codominant. CTA Head: The anterior and posterior cerebral circulations are patent. A tiny aneurysm of the basila r artery is seen measuring up to 5 mm. There is avid enhancement of the right clinoid lesion which ap pears to represent an aneurysm of the right supraclinoid segment of the carotid artery. Patent flow i s seen extending to the anterior and middle cerebral arteries. Posterior cerebral artery and posterio r circulation is unremarkable. Atherosclerotic disease is noted. IMPRESSION: 1. Redemonstration of 30 x 23 mm partially calcified aneurysm in the right supraclinoid carotid maninder ry. No evidence of active extravasation or hemorrhage. 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 If not previously evaluated, CTA chest can be performed. Assessment of stenosis of the internal carotid arteries is based on NASCET criteria. ACT 112: Negative or not required by law. Electronically signed by: Delonte Norman M.D. 05/14/2021 10:09 PM
[2021-05-14] MEDS ORDERED: SODIUM CHLORIDE 0.9% 250 ML IV ONE (22:13)
[2021-05-15] MEDS ORDERED: ACETAMINOPHEN 325 MG TAB PO PRN (04:07)
[2021-05-15] MEDS ORDERED: SODIUM CHLORIDE 0.9% 1000ML 1,000 ML IV SCH (04:07)
[2021-05-15] MEDS ORDERED: ONDANSETRON INJ 2 MG/ML 2 ML VIAL IV PRN (04:07)
--- NOTE | 2021-05-15 04:54 | History & Physical Report ---
Date of Service May 15, 2021 Assessment & Plan (1) Altered level of consciousness: Plan: Altered level consciousness/fatigue/disorientation- Likely multifactorial: Dehydration, TIA, general decline Symptoms have resolved prior to arrival to the ED, but did temporarily return after CT scan when contrast was given. IV contrast dye noted as allergy/sensitivity Consult PT/OT (2) Aortic dissection, thoracic: Plan: Thoracic aortic dissection- [facility] cardiothoracic surgery was consulted, and reported they would not perform surgery on her due to her age and comorbidities. Discussion with patient and family at this point, resulted in patient being changed to DNR/DNI status. Of note, this dissection was not present on previous CT from last year (3) Coronary artery disease: Plan: CAD/hypertension/CHF/atrial fibrillation- The patient will be admitted to telemetry for serial cardiac enzymes, serial EKG's, cardiac rhythm monitoring Continue carvedilol, furosemide, lisinopril and warfarin (4) Congestive heart failure (CHF): Plan: See above (5) Atrial fibrillation: Plan: See above (6) Fatigue: Plan: See above (7) Hypertension: Plan: See above Admission and Anticipated Discharge Date Admission Date: May 15, 2021 History of Present Illness Chief Complaint: The patient presents to the emergency department with complaint of generalized fatigue, worsening memory, generalized malaise, of duration 1/2 hours Primary Care Provider: Eusebio Gipson MD The patient is an 89-year-old female with a past medical history including renal neoplasm, CHF, fatigue, chronic diarrhea, mitral valve replacement, aortic valve replacement, rheumatic heart disease, long-term anticoagulant use, hyperlipidemia, CAD, 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 Patient does have a history of a calcified supraclinoid right-sided carotid artery aneurysm, but surgery was not recommended due to her age and comorbidities. Work-up in the emergency department included a CT of brain, CTA head neck: Redemonstration of 30 x 23 mm partially calcified aneurysm in the right supraclinoid carotid artery with no evidence of active extravasation or hemorrhage. Dissection of the ascending aorta. If not previously evaluated, CTA chest can be performed. Further imaging was not performed as the patient appeared to have an acute worsening of her mental functioning, which was later interpreted to be a reaction to IV contrast dye, which we noted in her record. [facility] cardiac cardiothoracic surgery was consulted by the ED, and reported that they would not perform surgery due to her age, and recommendation was for her to stay at this facility. After discussion with the patient and her son in attendance, the patient was made DNR/DNI 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 Verified 05/14/21 21:19 2004 Iodinated Contrast Media Allergy Severe Difficulty Verified 05/15/21 02:40 Breathing atorvastatin AdvReac Severe diarrhea Verified 05/14/21 21:19 and leg cramps metformin AdvReac Severe diarrhea Verified 05/14/21 21:19 pitavastatin AdvReac Severe joint Verified 05/14/21 21:19 pain, diarrhea ezetimibe AdvReac Intermediate myalgias, Verified 05/14/21 21:19 increased LFT simvastatin AdvReac Intermediate myalgias, Verified 05/14/21 21:19 increased LFTs Home Medications Medication Instructions Recorded Confirmed Type Saccharomyces boulardii 250 mg 250 mg PO BID #180 cap 02/27/19 05/14/21 Rx capsule (Florastor) calcium carbonate 500 mg calcium 500 mg PO DAILY #90 tab 02/27/19 05/14/21 Rx (1,250 mg) tablet (Calcium 500) coenzyme Q10 100 mg capsule (Co 100 mg PO DAILY #90 cap 02/27/19 05/14/21 Rx Q-10) multivitamin with minerals 1 tab PO DAILY #90 tab 02/27/19 05/14/21 Rx carvedilol 6.25 mg tablet (Coreg) 6.25 mg PO BID #180 tab 10/18/20 05/14/21 Rx lisinopril 40 mg tablet 40 mg PO DAILY #90 tab 10/18/20 05/14/21 Rx warfarin 7.5 mg tablet 7.5 mg PO 6XWK #90 tab 11/29/20 05/14/21 Rx furosemide 20 mg tablet (Lasix) 20 mg PO DAILY tab 03/08/21 05/14/21 History warfarin 5 mg tablet 5 mg PO WK 05/14/21 05/14/21 History Past Med/Surg History Medical History (Updated 05/15/21 @ 04:46 by Jaya Chaudhry MD) Aortic valve disorder Asthma Atrial fibrillation Atrioventricular block, complete Brain aneurysm PT FOLLOWS CLOSELY WITH [facility] [place]. PT STATES THEY ARE CURRENTY WATCHING IT, BUT NO INTERVENTION AT THIS TIME. C. 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 Medicare annual wellness visit, subsequent Mitral valve disease Neoplasm of kidney Renal carcinoma Rheumatic heart disease Type 2 diabetes mellitus Surgical History History of cholecystectomy History of colonoscopy History of esophagogastroduodenoscopy (EGD) History of eye surgery FOR INCREASED EYE PRESSURE/DOUBLE VISION History of heart valve replacement AORTIC VALVE REPLACEMENT (TOTAL 3 SURGERIES) History of herniorrhaphy History of hysterectomy History of tonsillectomy History of tricuspid valve annuloplasty S/P aortic valve replacement History of 3 aortic valve replacements S/P mitral valve replacement Family History Other Heart disease Hypertension Social History Smoking Status: Never smoker Second Hand Exposure: No; Hx Alcohol Use: No Hx Substance Use: No Preferred Language: French Communication Ability: Effective 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 Beliefs That Will Affect Care: None marital status: / Current Living Situation: Alone Current Living Situation Comment: [facility] [place] Feels Safe at Home: Yes Safety Concerns: Feels Safe At This Time Childhood Exposure to Second-Hand Smoke: Yes Seatbelt Use: always Sunscreen Use: No Assistive Devices: Cane and Walker Review of Systems Review of Systems: The patient denies chest pain, palpitations, shortness of breath, dyspnea on exertion, cough, lower extremity swelling, sore throat, fevers, chills, sweats, nausea, vomiting, diarrhea , constipation, abdominal pain, pelvic pain, blood in urine or stool, dysuria, urinary frequency or urgency, loss of consciousness, rash, abnormal bruising or bleeding, focal weakness, numbness or tingling in arms or legs, generalized arthralgias or myalgias, back or neck pain, or night sweats. The review of systems is otherwise negative other than for that already noted above, and at least 10 systems have been reviewed. Physical Exam Physical Exam: The patient is awake, alert, normocephalic and atraumatic, lying in bed and in no acute distress. HEENT--PERRL, EOMI, mucous membranes and oropharynx dry. Neck--supple. No JVD. No bruits. Thyroid normal, trachea midline, no adenopathy. Heart--normal S1 and S2. No murmurs, rubs or gallops. Lungs--clear bilaterally, no respiratory distress, no accessory muscle use. Abdomen--normal bowel sounds and soft. Nontender. Nondistended, no hernias or masses, no organomegaly. Extremities--no cyanosis or clubbing. No edema. Dermatologic--skin is dry Neurologic--cranial nerves II through XII grossly intact. Rheumatologic--limited exam Psychiatric--normal affect. Results & Data Results & Data ([facility]) Vital Signs (Past 12 Hours) Vital Signs Temp Pulse Pulse Resp BP BP Pulse Ox 05/15/21 04:07 97.9 F 71 18 135/80 98 05/15/21 02:17 60 119/61 98 05/15/21 00:28 64 133/72 96 05/14/21 22:50 60 156/78 H 98 05/14/21 22:30 60 19 144/66 H 97 05/14/21 22:15 63 21 117/60 97 05/14/21 22:06 67 25 H 98/57 L 97 05/14/21 20:56 60 137/77 93 05/14/21 20:33 72 19 137/77 95 05/14/21 20:11 98.1 F 78 16 128/69 94 Laboratory Results Laboratory Results WBC 4.29 K/uL (4.8-10.8) L 05/14/21 20:54 RBC 4.36 M/uL (4.2-5.4) 05/14/21 20:54 Hgb 12.4 g/dL (12.0-16.0) 05/14/21 20:54 Hct 38.2 % (37-47) 05/14/21 20:54 MCV 87.6 fL (80-100) 05/14/21 20:54 MCH 28.4 pg (25-34) 05/14/21 20:54 MCHC 32.5 g/dL (32-36) 05/14/21 20:54 RDW Std Deviation 52.3 fL (36.4-46.3) H 05/14/21 20:54 RDW Coeff of Amarilis 16.1 % (11.5-14.5) H 05/14/21 20:54 Plt Count 177 K/uL (130-400) 05/14/21 20:54 MPV 10.2 fL (7.4-10.4) 05/14/21 20:54 Immature Gran % (Auto) 0.2 % 05/14/21 20:54 Neut % (Auto) 67.6 % 05/14/21 20:54 Lymph % (Auto) 18.9 % 05/14/21 20:54 [place] % (Auto) 11.4 % 05/14/21 20:54 Eos % (Auto) 1.2 % 05/14/21 20:54 Baso % (Auto) 0.7 % 05/14/21 20:54 Neut # (Auto) 2.90 K/uL (1.4-6.5) 05/14/21 20:54 Lymph # (Auto) 0.81 K/uL (1.2-3.4) L 05/14/21 20:54 [place] # (Auto) 0.49 K/uL (0.11-0.59) 05/14/21 20:54 Eos # (Auto) 0.05 K/uL (0-0.5) 05/14/21 20:54 Baso # (Auto) 0.03 K/uL (0-0.2) 05/14/21 20:54 Immature Gran # (Auto) 0.01 K/uL (0.00-0.02) 05/14/21 20:54 PT 24.6 Seconds (9.0-12.0) H 05/14/21 20:54 INR 2.6 (0.9-1.1) H 05/14/21 20:54 APTT 36.5 Seconds (21.0-31.0) H 05/14/21 20:54 PTT Ratio 1.4 05/14/21 20:54 Sodium 139 mmol/L (136-145) 05/14/21 20:54 Potassium 4.1 mmol/L (3.5-5.1) 05/14/21 20:54 Chloride 103 mmol/L (98-107) 05/14/21 20:54 Carbon Dioxide 32 mmol/L (21-32) 05/14/21 20:54 Anion Gap 4.0 (3-11) 05/14/21 20:54 BUN 31 mg/dl (7-18) H 05/14/21 20:54 Creatinine 1.29 mg/dl (0.6-1.2) H 05/14/21 20:54 Est Cr Clr Drug Dosing 21.7 ml/min 05/14/21 20:54 Est GFR ( Amer) 42.8 ml/min 05/14/21 20:54 Est GFR (Non-Af Amer) 36.9 ml/min 05/14/21 20:54 BUN/Creatinine Ratio 24.1 (10-20) H 05/14/21 20:54 Glucose 154 mg/dl (70-99) H 05/14/21 20:54 POC Glucose 136 mg/dl (70-99) H 05/14/21 21:06 Calcium 9.3 mg/dl (8.5-10.1) 05/14/21 20:54 Magnesium 2.0 mg/dl (1.8-2.4) 05/14/21 20:54 Total Bilirubin 1.2 mg/dl (0.2-1) H 05/14/21 20:54 AST 45 U/L (15-37) H 05/14/21 20:54 ALT 32 U/L (12-78) 05/14/21 20:54 Alkaline Phosphatase 165 U/L (45-117) H 05/14/21 20:54 Troponin I < 0.015 ng/ml (0-0.045) 05/14/21 20:54 Total Protein 6.9 gm/dl (6.4-8.2) 05/14/21 20:54 Albumin 3.7 gm/dl (3.4-5.0) 05/14/21 20:54 Globulin 3.2 gm/dl (2.5-4.0) 05/14/21 20:54 Albumin/Globulin Ratio 1.1 (0.9-2) 05/14/21 20:54 COVID-19 Eval Order Covid19 [facility] 05/14/21 Unknown COVID-19 Eval Order Covid19 at [facility] 05/14/21 Unknown SARS-CoV-2 (PCR) NEGATIVE (Negative) 05/14/21 Unknown SARS-CoV-2, RNA, NAAT NEGATIVE (NEGATIVE) 05/14/[address] 05/14/21 20:27 CT head/brain wo con, CT angio head w con, CT angio neck with con Clinical Indication: MN ^Stroke Like Symptoms . TECHNIQUE: Contiguous axial CT images of the head were acquired from the base of the skull to the vertex without intravenous contrast administration. CT angiography of the head and neck was performed following intravenous administration of iodinated contrast. Automated dose lowering techniques and/or adjustment according to patient size were utilized for this examination. Comparison: Comparison is made to CT head 03/08/2020 FINDINGS: CT head: Areas of decreased attenuation are present in the periventricular and subcortical white matter bilaterally consistent with small vessel ischemic disease. Generalized cerebral atrophy with commensurate enlargement of the ventricles, sulci, and cisterns is also present. There is no acute intracranial hemorrhage or evidence of acute territorial infarction. There is redemonstration of a partially calcified 30 x 23 mm lesion in the right clinoid region. Atherosclerotic calcifications are present in the intracranial segments of the internal carotid arteries. 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 Atherosclerotic plaque is present in the aortic arch and at the origin of the great vessels. There is no atherosclerotic plaque at the origins of the vertebral arteries. The common carotid, external carotid, cervical segments of the internal carotid arteries, and the cervical segments of the vertebral arteries are patent. There is a focal region of calcification in the left vertebral artery which may represent hemodynamically significant stenosis. The vertebral arteries are codominant. CTA Head: The anterior and posterior cerebral circulations are patent. A tiny aneurysm of the basilar artery is seen measuring up to 5 mm. 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 Patent flow is seen extending to the anterior and middle cerebral arteries. Posterior cerebral artery and posterior circulation is unremarkable. Atherosclerotic disease is noted. IMPRESSION: 1. 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 No evidence of active extravasation or hemorrhage. 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 If not previously evaluated, CTA chest can be performed. Assessment of stenosis of the internal carotid arteries is based on NASCET criteria. ACT 112: Negative or not required by law. Electronically signed by: Delonte Norman M.D. 05/14/2021 10:09 PM Head CTA 05/14/21 20:27 CT head/brain wo con, CT angio head w con, CT angio neck with con Clinical Indication: MN ^Stroke Like Symptoms . TECHNIQUE: Contiguous axial CT images of the head were acquired from the base of the skull to the vertex without intravenous contrast administration. CT angiography of the head and neck was performed following intravenous administration of iodinated contrast. Automated dose lowering techniques and/or adjustment according to patient size were utilized for this examination. Comparison: Comparison is made to CT head 03/08/2020 FINDINGS: CT head: Areas of decreased attenuation are present in the periventricular and subcortical white matter bilaterally consistent with small vessel ischemic disease. Generalized cerebral atrophy with commensurate enlargement of the ventricles, sulci, and cisterns is also present. There is no acute intracranial hemorrhage or evidence of acute territorial infarction. There is redemonstration of a partially calcified 30 x 23 mm lesion in the right clinoid region. Atherosclerotic calcifications are present in the intracranial segments of the internal carotid arteries. 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 Atherosclerotic plaque is present in the aortic arch and at the origin of the great vessels. There is no atherosclerotic plaque at the origins of the vertebral arteries. The common carotid, external carotid, cervical segments of the internal carotid arteries, and the cervical segments of the vertebral arteries are patent. There is a focal region of calcification in the left vertebral artery which may represent hemodynamically significant stenosis. The vertebral arteries are codominant. CTA Head: The anterior and posterior cerebral circulations are patent. A tiny aneurysm of the basilar artery is seen measuring up to 5 mm. 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 Patent flow is seen extending to the anterior and middle cerebral arteries. Posterior cerebral artery and posterior circulation is unremarkable. Atherosclerotic disease is noted. IMPRESSION: 1. 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 No evidence of active extravasation or hemorrhage. 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 If not previously evaluated, CTA chest can be performed. Assessment of stenosis of the internal carotid arteries is based on NASCET criteria. ACT 112: Negative or not required by law. Electronically signed by: Delonte Norman M.D. 05/14/2021 10:09 PM Neck CTA 05/14/21 20:27 CT head/brain wo con, CT angio head w con, CT angio neck with con Clinical Indication: MN ^Stroke Like Symptoms . TECHNIQUE: Contiguous axial CT images of the head were acquired from the base of the skull to the vertex without intravenous contrast administration. CT angiography of the head and neck was performed following intravenous administration of iodinated contrast. Automated dose lowering techniques and/or adjustment according to patient size were utilized for this examination. Comparison: Comparison is made to CT head 03/08/2020 FINDINGS: CT head: Areas of decreased attenuation are present in the periventricular and subcortical white matter bilaterally consistent with small vessel ischemic disease. Generalized cerebral atrophy with commensurate enlargement of the ve ntricles, sulci, and cisterns is also present. There is no acute intracranial hemorrhage or evidence of acute territorial infarction. There is redemonstration of a partially calcified 30 x 23 mm lesion in the right clinoid region. Atherosclerotic calcifications are present in the intracranial segments of the internal carotid arteries. 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 Atherosclerotic plaque is present in the aortic arch and at the origin of the great vessels. There is no atherosclerotic plaque at the origins of the vertebral arteries. The common carotid, external carotid, cervical segments of the internal carotid arteries, and the cervical segments of the vertebral arteries are patent. There is a focal region of calcification in the left vert ebral artery which may represent hemodynamically significant stenosis. The vertebral arteries are codominant. CTA Head: The anterior and posterior cerebral circulations are patent. A tiny aneurysm of the basilar artery is seen measuring up to 5 mm. 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 Patent flow is seen extending to the anterior and middle cerebral arteries. Posterior cerebral artery and posterior circulation is unremarkable. Atherosclerotic disease is noted. IMPRESSION: 1. 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 No evidence of active extravasation or hemorrhage. 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 If not previously evaluated, CTA chest can be performed. Assessment of stenosis of the internal carotid arteries is based on NASCET criteria. ACT 112: Negative or not required by law. Electronically signed by: Delonte Norman M.D. 05/14/2021 10:09 PM Code Status & VTE Plan Code Status DNR/DNI VTE Prophylaxis Plan VTE Prophylaxis will be ordered: Yes PG Care Time/CCT Total # of Minutes Spent Total Time Spent with Patient: Total time spent is greater than 50% in coordination of care (as documented) at patient's floor/unit and/or counseling patient: Coding Level of Care Code INT OBSERVATION CARE 70M LVL 3 Diagnoses Altered level of consciousness R40.4 Aortic dissection, thoracic I71.01 Congestive heart failure (CHF) I50.9 Coronary artery disease I25.10 Atrial fibrillation I48.91 Fatigue R53.83 Hypertension I10
[2021-05-15 06:28] LABS: Hematocrit (blood only) 38.9 % (37-47); Hemoglobin 12.5 g/dL (12.0-16.0); Immature Granulocytes # (auto) 0.01 K/uL (0.00-0.02); Immature Granulocytes % (auto) 0.2 %; Lymphocytes # (auto) 0.44 K/uL (1.2-3.4); Lymphocytes % (auto) 7.7 %; Mean Corpuscular Hemoglobin 28.3 pg (25-34); Mean Corpuscular Hgb Conc 32.1 g/dL (32-36); Mean Platelet Volume 10.2 fL (7.4-10.4); Monocytes # (auto) 0.15 K/uL (0.11-0.59); Monocytes % (auto) 2.6 %; Neutrophils # (auto) 5.14 K/uL (1.4-6.5); Neutrophils % (auto) 89.5 %; Platelet Count 176 K/uL (130-400); RDW Standard Deviation 51.6 fL (36.4-46.3); Red Blood Count 4.42 M/uL (4.2-5.4); White Blood Count 5.74 K/uL (4.8-10.8)
[2021-05-15 06:54] LABS: Albumin Level 3.6 gm/dl (3.4-5.0); BUN Creatinine Ratio 29.4 (10-20); Calcium 8.9 mg/dl (8.5-10.1); Creatinine Clr Calc Pharmacy 26.9 ml/min; Est GFR (African American) 55.6 ml/min; Est GFR (Non-African American) 47.9 ml/min; Magnesium 1.7 mg/dl (1.8-2.4)
[2021-05-15 06:57] LABS: Albumin Globulin Ratio 1.2 (0.9-2); Bilirubin,Total 1.5 mg/dl (0.2-1); Phosphorus 3.5 mg/dl (2.5-4.9); Total Protein 6.6 gm/dl (6.4-8.2)
[2021-05-15] MEDS ORDERED: CALCIUM CARBONATE 1250MG TAB PO SCH (09:00)
[2021-05-15] MEDS ORDERED: lisinopril 40 MG TAB PO SCH (09:00)
[2021-05-15] MEDS ORDERED: CEROVITE ADV FORMULA TAB PO SCH (09:00)
[2021-05-15] MEDS ORDERED: carvediloL 6.25 MG TAB PO SCH (09:00)
[2021-05-15] MEDS ORDERED: SACCHAROMYCES BOULARDII 250 MG CAP PO SCH (09:00)
[2021-05-15] MEDS ORDERED: WARFARIN SOD 7.5 MG TAB PO SCH (16:00)
--- NOTE | 2021-05-15 16:15 | Discharge Summary ---
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 Patient does have a history of a calcified supraclinoid right-sided carotid artery aneurysm, but surgery was not recommended due to her age and comorbidities. Work-up in the emergency department included a CT of brain, CTA head neck: Redemonstration of 30 x 23 mm partially calcified aneurysm in the right supraclinoid carotid artery with no evidence of active extravasation or hemorrhage. Dissection of the ascending aorta. If not previously evaluated, CTA chest can be performed. Further imaging was not performed as the patient appeared to have an acute worsening of her mental functioning, which was later interpreted to be a reaction to IV contrast dye, which we noted in her record. [facility] cardiac cardiothoracic surgery was consulted by the ED, and reported that they would not perform surgery due to her age, and recommendation was for her to stay at this facility. After discussion with the patient and her son in attendance, the patient was made DNR/DNI Admission Exam Per Admitting Provider The patient is awake, alert, normocephalic and atraumatic, lying in bed and in no acute distress. HEENT--PERRL, EOMI, mucous membranes and oropharynx dry. Neck--supple. No JVD. No bruits. Thyroid normal, trachea midline, no adenopathy. Heart--normal S1 and S2. No murmurs, rubs or gallops. Lungs--clear bilaterally, no respiratory distress, no accessory muscle use. Abdomen--normal bowel sounds and soft. Nontender. Nondistended, no hernias or masses, no organomegaly. Extremities--no cyanosis or clubbing. No edema. Dermatologic--skin is dry Neurologic--cranial nerves II through XII grossly intact. Rheumatologic--limited exam Psychiatric--normal affect. Principal Diagnosis Dehydration Discharge Exam General: A&Ox3. NAD. Cooperative. HEENT: Atraumatic, normocephalic. Pulm: CTAB A&P. -wheezes, -rales, -rhonchi. Symmetrical chest rise. No increase work of breathing. No respiratory distress. Cardiac: RRR, -mrg. Radial pulses intact and symmetrical. Abdominal: Nontender, nondistended, soft. BS present. Extremities: Skin warm, dry. Neuro: Pupils equal and reactive. Right ptosis appreciated. EOM intact, no gaze preference or deviation, no nystagmus.normal sensation in V1, V2, and V3 segments bilaterally. Hearing and vision grossly intact. MOTOR: RUE: 5/5 insurance commissioner strength, finger flexion/extension, interosseus LUE: 5/5 insurance commissioner strength, finger flexion/extension, interosseus RLE: 5/5 to hip flexion, ankle dorsiflexion/plantarflexion LLE: 5/5 to hip flexion, ankle dorsiflexion/plantarflexion SENSORY: Normal to touch, pinprick, vibration, temp in upper and lower extremities witho ut deficit or asymmetry Discharge Data 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 Verified 05/14/21 21:19 2004 Iodinated Contrast Media Allergy Severe Difficulty Verified 05/15/21 02:40 Breathing atorvastatin AdvReac Severe diarrhea Verified 05/14/21 21:19 and leg cramps metformin AdvReac Severe diarrhea Verified 05/14/21 21:19 pitavastatin AdvReac Severe joint Verified 05/14/21 21:19 pain, diarrhea ezetimibe AdvReac Intermediate myalgias, Verified 05/14/21 21:19 increased LFT simvastatin AdvReac Intermediate myalgias, Verified 05/14/21 21:19 increased LFTs Consultations 05/14/21 22:43 ED Decision to Admit Stat Ordered Studies 05/14/21 20:27 CT angio head w con Stat CT angio neck with con Stat CT head/brain wo con Stat Hospital Course (1) Altered level of consciousness: Nellie is a 89-year-old female with a past medical history of CHF, mitral valve replacement, aortic valve replacement, rheumatic heart disease, cardiac pacemaker, A. fib, carotid aneurysm, DM, 6th cranial nerve palsy who presented with concern for altered mental status and who was found to have volume depletion. Summary, goals of care: Patient is a pleasant, alert 89 female with multiple comorbidities and medical frailty. She was found to have a descending thoracic aortic dissection which was discussed with cardiothoracic surgery as below, due to patient's underlying medical conditions medical frailty is not a surgical candidate. This was discussed with the patient and her son by phone who made decision to switch from full code to DNR/DNI. Discussed that she has multiple medical conditions including her aortic dissection and aneurysms which could worsen and be life-threatening or fatal, patient had expressed that her goals were to remain comfortable and independent and at home and would avoid aggressive surgical interventions discussed palliative care and potential hospice, patient agreeable to this and would like to follow-up as outpatient. Patient remained asymptomatic on day of discharge and was discharged to home with follow-up to PCP/palliative To do as outpatient: 1. PCP follow-up 2. Palliative care referral, potential hospice evaluation for additional in- home services 3. Home health physical therapy Altered level consciousness/fatigue/disorientation- Likely multifactorial: Dehydration, TIA, general decline Symptoms have resolved prior to arrival to the ED, but did temporarily return after CT scan when contrast was given. IV contrast dye noted as allergy/sensitivity Improved with supportive care, fluids Patient with mildly increased creatinine which normalized within 24 hours. Lasix/lisinopril resumed on discharge Ambulating independently, discharge recommended for home (2) Aortic dissection, thoracic: Thoracic aortic dissection- [facility] cardiothoracic surgery was consulted, and reported they would not perform surgery on her due to her age and comorbidities. Discussion with patient and family at this point, resulted in patient being changed to DNR/DNI status. Of note, this dissection was not present on previous CT from last year Coreg continued during admission and on discharge (3) Coronary artery disease: CAD/hypertension/CHF/atrial fibrillation- Troponin negative EKG without acute changes Clinically dry, no signs of acute on chronic CHF Carvedilol, warfarin continued Furosemide/lisinopril fully held, resumed on discharge as creatinine normal and patient euvolemic (4) Congestive heart failure (CHF): See above (5) Atrial fibrillation: See above (6) Fatigue: See above (7) Hypertension: See above Total Time Total Time Spent Total Time Spent (In Minutes): Time spent preparing discharge on day of discharge approximately 40 minutes including discussion with patient, discussion with family, direct clinical care, review of labs and images, and documentation Discharge Plan Discharge Items Patient Disposition: Home - Self-Care Reason For Visit: FATIGUE, MEMORY LOSS Discharge Diagnosis: Altered mental status due to dehydration Activity: Per Instructions section Non-emergency contact: Primary Care Provider Call non-emergency contact if: you have any medication questions, your symptoms worsen, your pain is not controlled, your pain is worsening and your pain is concerning for you Follow-up/Referrals: Eusebio Gipson MD [Primary Care Provider] - Diet: Heart Healthy Addtl Attending Provider Instructions: You were seen in the hospital for concerns of confusion likely due to dehydration. Your symptoms resolved prior to arrival in the emergency department, but did temporarily return when contrast was given during your CAT scan. You had IV contrast dye noted as an allergy/sensitivity. During admission you were noted to have a thoracic aortic dissection, a potentially life-threatening condition of a large blood vessel. This was discussed with [facility] cardiothoracic surgery team, their team reported they would not perform surgery due to the high surgical risk. This was discussed with you and your family, and the decision to pursue medical management and DNR/DNI CODE STATUS was made. Please continue on your carvedilol and warfarin, adjustments to these medications have not been made. A followup appointment is being scheduled for you with Dr. Gipson. You should be seen seen within 1 week. You should receive a call to confirm this appointment. If you do not receive a call within 48 hours to confirm this appointment, or need to change this appointment, please call the provider's office at [phone]. If you develop any new or worsening symptoms including fever, chills, sweats, chest pain, chest pressure, difficulty breathing, uncontrolled nausea/vomiting, rash, wheezing, passing out or nearly passing out, bleeding, black/bloody bowel movements, or other new or concerning symptoms please call your primary care physician at [phone], or call 911 for re-evaluation in the emergency department if you are very concerned. Pending Studies at Discharge: No Stand-Alone Forms: [facility], Smoking Cessation Medications and DC Order Prescriptions: Continued lisinopril 40 mg tablet 40 mg PO DAILY Qty: 90 RF: 3 carvedilol [Coreg] 6.25 mg tablet 6.25 mg PO BID Qty: 180 RF: 3 warfarin 7.5 mg tablet 7.5 mg PO 6XWK Qty: 90 RF: 3 calcium carbonate [Calcium 500] 500 mg calcium (1,250 mg) tablet 500 mg PO DAILY Qty: 90 RF: 3 coenzyme Q10 [Co Q-10] 100 mg capsule 100 mg PO DAILY Qty: 90 RF: 3 Florastor 250 mg capsule 250 mg PO BID Qty: 180 RF: 3 multivitamin with minerals tablet 1 tab PO DAILY Qty: 90 RF: 3 furosemide [Lasix] 20 mg tablet 20 mg PO DAILY RF: 0 warfarin 5 mg tablet 5 mg PO WK RF: 0 Discharge Orders: Discharge Order (Routine); Ordered 05/15/21 Ordered By: Prakash Vicente Admission Data Admit Date/Time: 05/15/21 00:22 Attending Provider: Prakash Vicente Admit Provider: Jaya Chaudhry Primary Care Provider: Eusebio Gipson Other Providers: Jaya Chaudhry Other Interventions: Discharge Summary Assessment (RN) Last Done: 05/15/21 16:34 Coding Level of Care Code D/C DAY MANAGEMENT >30 MINS Diagnoses Altered level of consciousness R40.4 Aortic dissection, thoracic I71.01 Coronary artery disease I25.10 Congestive heart failure (CHF) I50.9 Atrial fibrillation I48.91 Fatigue R53.83 Hypertension I10
--- NOTE | 2021-05-16 14:28 | Electrocardiogram Report ---
Test Reason : Blood Pressure : / mmHG Vent. Rate : 062 BPM Atrial Rate : 069 BPM P-R Int : 000 ms QRS Dur : 174 ms QT Int : 512 ms P-R-T Axes : 000 -80 089 degrees QTc Int : 519 ms Poor data quality, interpretation may be adversely affected Ventricular-paced rhythm with occasional Premature ventricular complexes Abnormal ECG When compared with ECG of 08-MAR-2020 11:28, Electronic ventricular pacemaker has replaced Atrial fibrillation Confirmed by Fausto Buchanan ([id number]) on 05/16/2021 2:28:08 PM Referred By: Myles Beavers Confirmed By:Julian Buchanan
--- NOTE | 2021-05-16 14:28 | Electrocardiogram Report ---
Test Reason : Blood Pressure : / mmHG Vent. Rate : 061 BPM Atrial Rate : 234 BPM P-R Int : 000 ms QRS Dur : 176 ms QT Int : 504 ms P-R-T Axes : 000 262 096 degrees QTc Int : 507 ms Poor data quality, interpretation may be adversely affected Ventricular-paced rhythm with occasional Premature ventricular complexes Abnormal ECG When compared with ECG of 14-MAY-2021 20:38, (unconfirmed) No significant change was found Confirmed by Fausto Buchanan ([id number]) on 05/16/2021 2:28:15 PM Referred By: Myles Beavers Confirmed By:Julian Buchanan
[2021-05-16] MEDS ORDERED: WARFARIN SOD 5 MG TAB PO SCH (16:00)
== END 2021-05-15 17:45 | disposition home or self-care (01) ==
LOC: ED 20:05 → 2S 20:05 → SUATTDRO 05-15 00:22 → 2S 05-15 03:17
DX: I48.91 Unspecified atrial fibrillation; I25.10 Atherosclerotic heart disease of native coronary artery without angina pectoris; I50.32 Chronic diastolic (congestive) heart failure; Z79.01 Long term (current) use of anticoagulants; I71.01 Dissection of thoracic aorta; E11.9 Type 2 diabetes mellitus without complications; E86.0 Dehydration; Z88.8 Allergy status to other drugs, medicaments and biological substances; I09.9 Rheumatic heart disease, unspecified; Z95.0 Presence of cardiac pacemaker; Z66 Do not resuscitate; E78.5 Hyperlipidemia, unspecified; Z79.899 Other long term (current) drug therapy; J45.909 Unspecified asthma, uncomplicated; I11.0 Hypertensive heart disease with heart failure; Z95.2 Presence of prosthetic heart valve

== ENCOUNTER 2021-06-23 13:39 | Inpatient (IN) ==
[2021-06-23 15:52] LABS: Basophils # (auto) 0.03 K/uL (0-0.2); Basophils % (auto) 0.4 %; Eosinophils # (auto) 0.07 K/uL (0-0.5); Hematocrit (blood only) 42.8 % (37-47); Hemoglobin 13.6 g/dL (12.0-16.0); Immature Granulocytes # (auto) 0.02 K/uL (0.00-0.02); Immature Granulocytes % (auto) 0.3 %; Lymphocytes # (auto) 1.32 K/uL (1.2-3.4); Lymphocytes % (auto) 18.1 %; Mean Corpuscular Hemoglobin 28.8 pg (25-34); Mean Corpuscular Hgb Conc 31.8 g/dL (32-36); Mean Corpuscular Volume 90.7 fL (80-100); Mean Platelet Volume 10.7 fL (7.4-10.4); Monocytes # (auto) 0.72 K/uL (0.11-0.59); Monocytes % (auto) 9.8 %; Neutrophils # (auto) 5.15 K/uL (1.4-6.5); Neutrophils % (auto) 70.4 %; Platelet Count 203 K/uL (130-400); RDW Coefficient of Variation 16.4 % (11.5-14.5); RDW Standard Deviation 54.3 fL (36.4-46.3); Red Blood Count 4.72 M/uL (4.2-5.4); White Blood Count 7.31 K/uL (4.8-10.8)
[2021-06-23 16:03] LABS: INR 2.3 (0.9-1.1); Partial Thromboplastin Ratio 1.2; Partial Thromboplastin Time 32.3 Seconds (21.0-31.0); Prothrombin Time 21.5 Seconds (9.0-12.0)
[2021-06-23 16:14] LABS: Alanine Aminotransferase 28 U/L (12-78); Aspartate Aminotransferase 27 U/L (15-37); BUN Creatinine Ratio 29.1 (10-20); Blood Urea Nitrogen 31 mg/dl (7-18); Calcium 9.6 mg/dl (8.5-10.1); Carbon Dioxide 30 mmol/L (21-32); Chloride 103 mmol/L (98-107); Creatinine Clr Calc Pharmacy 29.8 ml/min; Est GFR (African American) 54.3 ml/min; Est GFR (Non-African American) 46.8 ml/min; Glucose 124 mg/dl (70-99); Magnesium 2.1 mg/dl (1.8-2.4); Potassium 4.2 mmol/L (3.5-5.1); Sodium 139 mmol/L (136-145)
[2021-06-23 16:18] LABS: Albumin Globulin Ratio 1.2 (0.9-2); Alkaline Phosphatase 137 U/L (45-117); Bilirubin,Total 1.6 mg/dl (0.2-1); Globulin 3.3 gm/dl (2.5-4.0); Total Protein 7.3 gm/dl (6.4-8.2); Troponin I < 0.015 ng/ml (0-0.045)
--- NOTE | 2021-06-23 16:25 | XRay Report ---
XR chest 1V portable HISTORY: 89 years-old Female SOB acute shortness of breath COMPARISON: Chest radiograph 03/08/2020 TECHNIQUE: Portable AP view of the chest FINDINGS: Cardiac silhouette is enlarged. Prior median sternotomy with cardiac valvular prosthesis. Single lead left subclavian pacer. Small right greater left pleural effusions with mild bibasilar opacities. Pul monary vascular congestion with coarsening of the interstitium, progressed from prior. No pneumothora x. Degenerative changes of the shoulders and spine. Apparent cortical irregularity of the posterior r ight third rib is likely artifactual. Acute fracture considered less likely. IMPRESSION: 1. Cardiomegaly with pulmonary vascular congestion and interstitial coarsening suggestive of pulmonar y edema. 2. Small layering pleural effusions with mild bibasilar opacities. ACT 112: Negative or not required by law. The above report was generated using voice recognition software. It may contain grammatical, syntax o r spelling errors. Electronically signed by: Pj Kate M.D. 06/23/2021 4:24 PM
--- NOTE | 2021-06-23 16:57 | Emergency Department Note ---
Impression & Plan CHF (congestive heart failure), OWEN (dyspnea on exertion), History of dissection of thoracic aorta ED Provider Note NAME: KYRIE HARMON AGE: 89 SEX: F : 1930 ARRIVES VIA: Walk-In INFORMANT: Patient, ED PROVIDER(S): Srikanth Rushing MD Chief Complaint: Shortness of breath HPI: Patient does present due to concern for shortness of breath. The patient states that this began this morning and states that it was after getting out of the shower. The patient denies any fevers or chills or chest pains. The patient states that she feels "sick." She has an upset stomach and just does not feel well. Patient was recently seen in May was diagnosed with thoracic dissection which is inoperable per family at bedside after discussion with her she. Patient understands this. Patient is DNR/DNI. The patient did not take anything for symptoms this morning but states that she has been compliant. She follows with Dr. Bartholomew for cardiology. Patient does have a known history of multiple valve repairs. The patient is on Coumadin. Patient has any fevers or chills. She is vaccinated for Covid and denies any recent falls or trauma. Patient states that her symptoms are worse with exertion and somewhat with lying flat. Patient denies any cough. Patient states that she has been losing weight not gaining weight. Patient is had decreased appetite. ROS: See HPI for pertinent positives and negatives. A total of 10 systems were reviewed and otherwise negative. Past medical history: See below Surgical history: See below Social history: See below Physical Exam: GENERAL: Thin in appearance, NAD, wearing glasses, wearing a mask, non-toxic. EYE EXAM: Normal conjunctiva. PERRL, no anisocoria and EOM's grossly intact w/o pain. NECK: Supple, no nuchal rigidity, no adenopathy, non-tender. No signs of meningismus. LUNGS: Bibasilar crackles noted. Normal chest wall mechanics. HEART: NSR, no MRG. ABDOMEN: Abdomen soft, non-tender, normo-active bowel sounds, no masses, no rebound or guarding. BACK: No CVA TTP. SKIN: No rashes and no bruising. UPPER EXTREMITIES: Upper extremities are grossly normal. LOWER EXTREMITIES: Grossly normal, 1+ bilateral symmetric lower extremity edema. NEURO EXAM: A&O x3, cranial nerves II-XII grossly intact, normal speech, moves all 4 extremities on command w/o issue. Differential diagnoses: Reactive airway disease, pneumonia, pneumothorax, COPD, CHF, infections, cardiac ischemia, pulmonary embolism, musculoskeletal, gastrointestinal, as well as other pathologies. Course: Patient was seen and evaluated the bedside. Full history physical exam was performed. EKG interpreted by me V paced rhythm, rate of 63, wide QRS, T wave inversion laterally. Imaging Studies: See Below Cardiac monitoring: An order was placed for continuous cardiac monitoring. The monitor shows a rate of 65 with paced rhythm. MDM: Patient was seen due to concern for OWEN and mild orthopnea with a known history of significant cardiac disease. Patient does have a dissection of the thoracic aorta. The patient was complaining of abdominal pain so patient did have an ab dominal CT that was ordered. Patient has a normal white count H&H and platelet count. The patient's kidney function is elevated BUN but normal creatinine. BNP is elevated with negative troponin. Covid negative. X-ray did show concern for pulmonary edema. Lasix held initially due to the concern of the patient stating that she has been losing weight. The patient is up approximate half a kilogram in the last month. CT abdomen pelvis shows diverticulosis but without obvious diverticulitis. I did speak with the on-call hospitalist Dr. Ching and the patient was admitted to the medicine service. Past Med/Surg History Medical History Altered level of consciousness Aortic valve disorder Asthma Atrial fibrillation Atrioventricular block, complete Brain aneurysm PT FOLLOWS CLOSELY WITH [facility] [place], [facility]. PT STATES THEY ARE CURRENTY WATCHING IT, BUT NO INTERVENTION AT THIS TIME. C. 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 Medicare annual wellness visit, subsequent Mitral valve disease Nausea Neoplasm of kidney Open wound, hand Renal carcinoma Rheumatic heart disease Type 2 diabetes mellitus Surgical History History of cholecystectomy History of colonoscopy History of esophagogastroduodenoscopy (EGD) History of eye surgery FOR INCREASED EYE PRESSURE/DOUBLE VISION History of heart valve replacement AORTIC VALVE REPLACEMENT (TOTAL 3 SURGERIES) History of herniorrhaphy History of hysterectomy History of tonsillectomy History of tricuspid valve annuloplasty S/P aortic valve replacement History of 3 aortic valve replacements S/P mitral valve replacement Family History Other Heart disease Hypertension Social History Smoking Status: Never smoker Second Hand Exposure: No; Hx Alcohol Use: No Hx Substance Use: No Preferred Language: Somali Communication Ability: Effective 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 Beliefs That Will Affect Care: None marital status: / Current Living Situation: Alone Current Living Situation Comment: [place] Feels Safe at Home: Yes Safety Concerns: Feels Safe At This Time Childhood Exposure to Second-Hand Smoke: Yes Seatbelt Use: always Sunscreen Use: No Assistive Devices: Cane, Glasses and Oxygen - Continuous Allergies 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 Verified 06/23/21 17:37 2005 Iodinated Contrast Media Allergy Severe Difficulty Verified 06/23/21 17:37 Breathing atorvastatin AdvReac Severe diarrhea Verified 06/23/21 17:37 and leg cramps metformin AdvReac Severe diarrhea Verified 06/23/21 17:37 pitavastatin AdvReac Severe joint Verified 06/23/21 17:37 pain, diarrhea ezetimibe AdvReac Intermediate myalgias, Verified 06/23/21 17:37 increased LFT simvastatin AdvReac Intermediate myalgias, Verified 06/23/21 17:37 increased LFTs Home Meds Home Medications Medication Instructions Recorded Confirmed furosemide 20 mg tablet (Lasix) 20 mg PO DAILY tab 03/08/21 06/23/21 warfarin 5 mg tablet 5 mg PO WK 05/14/21 06/23/21 latanoprost 0.005 % eye drops 1 drp OPB HS 06/23/21 06/23/21 Previous Rx's Medication Instructions Recorded Saccharomyces boulardii 250 mg 250 mg PO BID #180 cap 02/27/19 capsule (Florastor) calcium carbonate 500 mg calcium 500 mg PO DAILY #90 tab 02/27/19 (1,250 mg) tablet (Calcium 500) coenzyme Q10 100 mg capsule (Co 100 mg PO DAILY #90 cap 02/27/19 Q-10) multivitamin with minerals 1 tab PO DAILY #90 tab 02/27/19 carvedilol 6.25 mg tablet (Coreg) 6.25 mg PO BID #180 tab 10/18/20 lisinopril 40 mg tablet 40 mg PO DAILY #90 tab 10/18/20 warfarin 7.5 mg tablet 7.5 mg PO 6XWK #90 tab 11/29/20 Results & Data (ED) Vital Signs Vital Signs - 24 hr 06/23/21 14:00 06/23/21 16:54 06/23/21 16:55 Temperature 36.8 C Temperature Source Temporal Artery Scan Pulse Rate 63 Pulse Rate [Left] 62 Pulse Rate from SpO2 Sensor Pulse Rhythm [Left] Respiratory Rate 18 20 20 Respiratory Effort / Characteristics Non-Labored Short of Breath Respiratory Depth Normal Respiratory Pattern Blood Pressure 105/71 Blood Pressure [Right Arm] 106/64 Blood Pressure Mean 82 Blood Pressure Mean [Right Arm] 78 Blood Pressure Position Sitting Blood Pressure Position [Right Arm] Sitting Pulse Oximetry 95 91 91 Oxygen Delivery Method Room Air Room Air Room Air Oxygen Flow Rate Sepsis Recent Fever Within 48 Hours No Sepsis New/Unexplained Change in Mental Status No Sepsis Action Taken by Nursing No Action Required 06/23/21 16:57 06/23/21 16:58 06/23/21 17:00 Temperature Temperature Source Pulse Rate 71 64 Pulse Rate [Left] Pulse Rate from SpO2 Sensor Pulse Rhythm [Left] Respiratory Rate 25 H 26 H Respiratory Effort / Characteristics Non-Labored Respiratory Depth Normal Respiratory Pattern Regular Blood Pressure 113/63 Blood Pressure [Right Arm] Blood Pressure Mean 79 Blood Pressure Mean [Right Arm] Blood Pressure Position Blood Pressure Position [Right Arm] Pulse Oximetry 91 91 90 Oxygen Delivery Method Room Air Room Air Room Air Oxygen Flow Rate Sepsis Recent Fever Within 48 Hours Sepsis New/Unexplained Change in Mental Status Sepsis Action Taken by Nursing 06/23/21 17:30 06/23/21 17:44 06/23/21 18:00 Temperature Temperature Source Pulse Rate 60 Pulse Rate [Left] 61 Pulse Rate from SpO2 Sensor 60 Pulse Rhythm [Left] Respiratory Rate 25 H 20 23 Respiratory Effort / Characteristics Respiratory Depth Respiratory Pattern Blood Pressure 101/67 102/65 Blood Pressure [Right Arm] 101/67 Blood Pressure Mean 78 77 Blood Pressure Mean [Right Arm] 78 Blood Pressure Position Blood Pressure Position [Right Arm] Sitting Pulse Oximetry 90 94 99 Oxygen Delivery Method Room Air Nasal Cannula Nasal Cannula Oxygen Flow Rate 2 2 Sepsis Recent Fever Within 48 Hours Sepsis New/Unexplained Change in Mental Status Sepsis Action Taken by Nursing 06/23/21 19:00 Temperature Temperature Source Pulse Rate Pulse Rate [Left] 91 H Pulse Rate from SpO2 Sensor Pulse Rhythm [Left] Regular Respiratory Rate 20 Respiratory Effort / Characteristics Respiratory Depth Respiratory Pattern Blood Pressure Blood Pressure [Right Arm] 97/47 L Blood Pressure Mean Blood Pressure Mean [Right Arm] 63 Blood Pressure Position Blood Pressure Position [Right Arm] Lying Pulse Oximetry 95 Oxygen Delivery Method Nasal Cannula Oxygen Flow Rate 3 Sepsis Recent Fever Within 48 Hours Sepsis New/Unexplained Change in Mental Status Sepsis Action Taken by Detention Medications Current Medication List: was personally reviewed by me Laboratory Data Attestation: I reviewed the patient's lab results. Result diagrams: 06/23/21 15:43 06/23/21 15:43 Lab Results 06/23/21 06/23/21 06/23/21 Range/Units 15:43 15:43 15:43 WBC 7.31 (4.8-10.8) K/uL RBC 4.72 (4.2-5.4) M/uL Hgb 13.6 (12.0-16.0) g/dL Hct 42.8 (37-47) % MCV 90.7 (80-100) fL MCH 28.8 (25-34) pg MCHC 31.8 L (32-36) g/dL RDW Std Deviation 54.3 H (36.4-46.3) fL RDW Coeff of Amarilis 16.4 H (11.5-14.5) % Plt Count 203 (130-400) K/uL MPV 10.7 H (7.4-10.4) fL Immature Gran % (Auto) 0.3 % Neut % (Auto) 70.4 % Lymph % (Auto) 18.1 % Weston % (Auto) 9.8 % Eos % (Auto) 1.0 % Baso % (Auto) 0.4 % Neut # (Auto) 5.15 (1.4-6.5) K/uL Lymph # (Auto) 1.32 (1.2-3.4) K/uL Weston # (Auto) 0.72 H (0.11-0.59) K/uL Eos # (Auto) 0.07 (0-0.5) K/uL Baso # (Auto) 0.03 (0-0.2) K/uL Immature Gran # (Auto) 0.02 (0.00-0.02) K/uL PT 21.5 H (9.0-12.0) Seconds INR 2.3 H (0.9-1.1) APTT 32.3 H (21.0-31.0) Seconds PTT Ratio 1.2 Sodium 139 (136-145) mmol/L Potassium 4.2 (3.5-5.1) mmol/L Chloride 103 (98-107) mmol/L Carbon Dioxide 30 (21-32) mmol/L Anion Gap 7.0 (3-11) BUN 31 H (7-18) mg/dl Creatinine 1.06 (0.6-1.2) mg/dl Est Cr Clr Drug Dosing 29.8 ml/min Est GFR ( Amer) 54.3 ml/min Est GFR (Non-Af Amer) 46.8 ml/min BUN/Creatinine Ratio 29.1 H (10-20) Glucose 124 H (70-99) mg/dl Calcium 9.6 (8.5-10.1) mg/dl Phosphorus (2.5-4.9) mg/dl Magnesium 2.1 (1.8-2.4) mg/dl Total Bilirubin 1.6 H (0.2-1) mg/dl AST 27 (15-37) U/L ALT 28 (12-78) U/L Alkaline Phosphatase 137 H (45-117) U/L Troponin I < 0.015 (0-0.045) ng/ml NT-Pro-B Natriuret Pep (0-1800) pg/ml Total Protein 7.3 (6.4-8.2) gm/dl Albumin 4.0 (3.4-5.0) gm/dl Globulin 3.3 (2.5-4.0) gm/dl Albumin/Globulin Ratio 1.2 (0.9-2) COVID-19 Eval Order SARS-CoV-2 (PCR) (Negative) 06/23/21 06/23/21 06/23/21 Range/Units 15:43 17:47 17:47 WBC (4.8-10.8) K/uL RBC (4.2-5.4) M/uL Hgb (12.0-16.0) g/dL Hct (37-47) % MCV (80-100) fL MCH (25-34) pg MCHC (32-36) g/dL RDW Std Deviation (36.4-46.3) fL RDW Coeff of Amarilis (11.5-14.5) % Plt Count (130-400) K/uL MPV (7.4-10.4) fL Immature Gran % (Auto) % Neut % (Auto) % Lymph % (Auto) % Weston % (Auto) % Eos % (Auto) % Baso % (Auto) % Neut # (Auto) (1.4-6.5) K/uL Lymph # (Auto) (1.2-3.4) K/uL Weston # (Auto) (0.11-0.59) K/uL Eos # (Auto) (0-0.5) K/uL Baso # (Auto) (0-0.2) K/uL Immature Gran # (Auto) (0.00-0.02) K/uL PT (9.0-12.0) Seconds INR (0.9-1.1) APTT (21.0-31.0) Seconds PTT Ratio Sodium (136-145) mmol/L Potassium (3.5-5.1) mmol/L Chloride (98-107) mmol/L Carbon Dioxide (21-32) mmol/L Anion Gap (3-11) BUN (7-18) mg/dl Creatinine (0.6-1.2) mg/dl Est Cr Clr Drug Dosing ml/min Est GFR ( Amer) ml/min Est GFR (Non-Af Amer) ml/min BUN/Creatinine Ratio (10-20) Glucose (70-99) mg/dl Calcium (8.5-10.1) mg/dl Phosphorus 3.8 (2.5-4.9) mg/dl Magnesium (1.8-2.4) mg/dl Total Bilirubin (0.2-1) mg/dl AST (15-37) U/L ALT (12-78) U/L Alkaline Phosphatase (45-117) U/L Troponin I (0-0.045) ng/ml NT-Pro-B Natriuret Pep 4909 H (0-1800) pg/ml Total Protein (6.4-8.2) gm/dl Albumin (3.4-5.0) gm/dl Globulin (2.5-4.0) gm/dl Albumin/Globulin Ratio (0.9-2) COVID-19 Eval Order Covid19 at [facility] SARS-CoV-2 (PCR) NEGATIVE (Negative) Administered Medications Carvedilol (Carvedilol 6.25 Mg Tab) 6.25 mg PO BID ESSENCE Stop: 07/23/21 22:01 Last Admin: 06/23/21 22:44 Dose: Not Given Documented by: [id number] Latanoprost (Latanoprost 0.005% Op Soln 2.5 Ml Btl) 1 drops OPB HS ESSENCE Stop: 07/23/21 22:01 Last Admin: 06/23/21 22:44 Dose: 1 drops Documented by: [id number] Saccharomyces Boulardii (Saccharomyces Boulardii 250 Mg Cap) 250 mg PO BID ESSENCE Stop: 07/23/21 22:01 Last Admin: 06/23/21 22:44 Dose: 250 mg Documented by: [id number] Discontinued Medications Famotidine (Famotidine 20mg/5ml Iv Push) 20 mg IV ONE STA Stop: 06/23/21 18:11 Last Admin: 06/23/21 19:01 Dose: 20 mg Documented by: [id number] Furosemide (Furosemide Inj 20 Mg/2 Ml Vial) 20 mg IV ONE ONE Stop: 06/23/21 17:14 Last Admin: 06/23/21 17:43 Dose: 20 mg Documented by: [id number] Furosemide (Furosemide 40 Mg/4 Ml Vial) Confirm Administered Dose 40 mg IV .STK- MED ONE Stop: 06/23/21 17:38 Last Admin: 06/23/21 17:43 Dose: Not Given Documented by: [id number] Ondansetron HCl (Ondansetron Inj 2 Mg/Ml 2 Ml Vial) 4 mg IV NOW STA Stop: 06/23/21 17:14 Last Admin: 06/23/21 17:41 Dose: 4 mg Documented by: [id number] Imaging Data Radiologist's Impression: Chest X-Ray 06/23/21 14:08 XR chest 1V portable HISTORY: 89 years-old Female SOB acute shortness of breath COMPARISON: Chest radiograph 03/08/2020 TECHNIQUE: Portable AP view of the chest FINDINGS: Cardiac silhouette is enlarged. Prior median sternotomy with cardiac valvular prosthesis. Single lead left subclavian pacer. Small right greater left pleural effusions with mild bibasilar opacities. Pulmonary vascular congestion with c oarsening of the interstitium, progressed from prior. No pneumothorax. Degenerative changes of the shoulders and spine. Apparent cortical irregularity of the posterior right third rib is likely artifactual. Acute fracture considered less likely. IMPRESSION: 1. Cardiomegaly with pulmonary vascular congestion and interstitial coarsening suggestive of pulmonary edema. 2. Small layering pleural effusions with mild bibasilar opacities. ACT 112: Negative or not required by law. The above report was generated using voice recognition software. It may contain grammatical, syntax or spelling errors. Electronically signed by: Pj Kate M.D. 06/23/2021 4:24 PM Abdomen/Pelvis CT 06/23/21 17:13 CT abd pelvis wo con CLINICAL HISTORY: abdominal discomfort, sick to stomach COMPARISON STUDY: 11/19/2020 CT DOSE: 257.81 mGy.cm TECHNIQUE: Standard CT of the Abdomen and Pelvis was performed without IV contrast. The patient did not receive oral contrast. A dose lowering technique was utilized adhering to the principles of ALARA. FINDINGS: Lung base: There is again cardiomegaly with aortic and mitral valve surgery there is particular enlargement of the right atrium. There are increasing small bilateral pleural effusions, right greater left. There is compressive atelectasis at the right lung base. Abdominal cavity: There is no evidence for abdominal mass, adenopathy or a bdominal ascites. Liver: The liver is homogeneous in attenuation on these limited noncontrast images.. Spleen: The spleen is homogeneous in attenuation on these limited noncontrast images. Pancreas: The pancreas is homogeneous in attenuation on these limited noncontrast images. Gall Bladder: The gallbladder is again absent. Adrenal glands: The adrenal glands are normal in size and attenuation on these limited noncontrast images. Kidneys: The kidneys are homogeneous in attenuation on these limited noncontrast images. Compared to previous examination, the study is limited as no contrast was utilized. There are exophytic lesions projecting from the superior pole of the left kidney along with an interbody lower pole left kidney. There is also an exophytic lesion projecting from the superior pole the right kidney which has appearance of a cyst. There is nonobstructing left lower pole renal calculus, unchanged. Indicated clinically, follow-up CT of the kidneys with contrast would be the study of choice for further evaluation of the kidneys. Bowel: There is evidence for small sliding-type hernia. The bowel loops are normally placed within the abdomen and pelvis without evidence for dilatation or obstruction. There is limited evaluation of the colon due to lack of oral contrast. There is evidence for diverticulosis of the sigmoid colon without evidence for diverticulitis. There are no inflammatory changes present. There is no evidence for free air. Bladder: There is no evidence for focal bladder wall thickening, calculus or diverticulum. : There is no evidence for pelvic mass or adenopathy. There is mild pelvic ascites from unknown etiology. Vasculature: There is no evidence for focal aneurysmal dilatation of the abd ominal aorta. Atherosclerotic calcification is present. Osseous structures: There is no acute osseous pathology. Extensive degenerative changes are seen involving the lumbar spine IMPRESSION: 1. Extensive sigmoid diverticulosis without evidence for diverticulitis. However, the colonic mucosa cannot be fully evaluated due to lack of oral contrast. 2. Exophytic lesions are again seen involving the kidneys as described above, left greater than right. There was suspicion of renal cell carcinoma the previous postcontrast study and this cannot be fully evaluated on this study as described. 3. No other evidence for acute intra-abdominal or pelvic abnormality. 4. Additional nonacute findings are delineated above. ACT 112: Negative or not required by law. Electronically signed by: Randal Rust M.D. 06/23/2021 8:35 PM Discharge Plan Visit Data Chief Complaint: Shortness of Breath/Dyspnea Stated Complaint: SOB/FEELING SICK/REFERRED BY ED Provider: Srikanth Rushing Discharge Problem: CHF (congestive heart failure), OWEN (dyspnea on exertion), History of dissection of thoracic aorta Patient Disposition: Admitted As Inpatient Discharge Instructions Interventions: ED Discharge Assessment Last Done: 06/23/21 21:41
[2021-06-23] MEDS ORDERED: FUROSEMIDE INJ 20 MG/2 ML VIAL IV ONE (17:13)
[2021-06-23] MEDS ORDERED: ONDANSETRON INJ 2 MG/ML 2 ML VIAL IV STA (17:13)
[2021-06-23] MEDS ORDERED: FUROSEMIDE 40 MG/4 ML VIAL IV ONE (17:37)
[2021-06-23 17:49] LABS: Phosphorus 3.8 mg/dl (2.5-4.9)
--- NOTE | 2021-06-23 18:03 | History & Physical Report ---
Date of Service June 23, 2021 Assessment & Plan (1) Goals of care, counseling/discussion: Plan: Given thoracic aneurysm dissection will consult palliative care to further discuss options regarding hospice (2) CHF (congestive heart failure): Plan: Acute shortness of breath following the shower today Lasix 20mg IV given in the ER. Continue 20mg IV daily Low sodium diet, unlikely to need fluid restriction as already nauseous and not eating much I am unclear on her and her son's goals therefore will defer TTE currently pending palliative discussion Troponin negative on admission therefore to not suspect ACS caused this (3) Hypoxia: Plan: Aim O2 sats > 90% (4) Nausea: Plan: Ondansetron 4mg IV q4h PRN Nill acute on CT A/P Patient reports this problem is chronic but son concerned about worsening appetite over the last few days. (5) History of dissection of thoracic aorta: Plan: Non-operable (6) Hypertension: Plan: Hold lisinopril given relative hypotension Lasix as above (7) Cardiac pacemaker: Plan: Noted. Secondary to prior CHB (8) Atrial fibrillation: Plan: Continue warfarin for anticoagulation Rate controlled on carvedilol with hold parameters - consider switch to me toprolol if hypotension continues Plan: VTE Prophylaxis - INR within 2-3 range Diet - Low Na, heart healthy Disposition - admit med/tele Admission and Anticipated Discharge Date Admission Date: June 23, 2021 History of Present Illness Chief Complaint: Shortness of breath Primary Care Provider: Eusebio Gipson MD Nellie Bernard is an 89 year old female who presents to the ER with shortness of breath after having a shower today. She reports feeling better from this but is currently requiring 2LPM O2 in the ER. She also has a number of ongoing concerns and finds it difficult to tell me what is chronic or acute. Her son at bedside is mostly concerned about her ongoing nausea and decreased appetite which appears worse over the past few days. He moved in with her at the end of May and since then has also had a worsening cough although the patient feels she always has the same cough. 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 There was some discussion regarding transition to hospice care but both the patient and son are unsure what this would look like or involve. She wishes to be admitted at this time for optimization of her breathing but her son is more concerned about her eating and nausea. In the ER CXR concerning for pulmonary edema. SARS-COV-2 negative. She is requiring 2LPM O2 to maintain O2 sats > 90%. She was referred to medicine for admission and ongoing management of CHF exacerbation. 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 Verified 06/23/21 17:37 2004 Iodinated Contrast Media Allergy Severe Difficulty Verified 06/23/21 17:37 Breathing atorvastatin AdvReac Severe diarrhea Verified 06/23/21 17:37 and leg cramps metformin AdvReac Severe diarrhea Verified 06/23/21 17:37 pitavastatin AdvReac Severe joint Verified 06/23/21 17:37 pain, diarrhea ezetimibe AdvReac Intermediate myalgias, Verified 06/23/21 17:37 increased LFT simvastatin AdvReac Intermediate myalgias, Verified 06/23/21 17:37 increased LFTs Home Medications Medication Instructions Recorded Confirmed Type Saccharomyces boulardii 250 mg 250 mg PO BID #180 cap 02/27/19 06/23/21 Rx capsule (Florastor) calcium carbonate 500 mg calcium 500 mg PO DAILY #90 tab 02/27/19 06/23/21 Rx (1,250 mg) tablet (Calcium 500) coenzyme Q10 100 mg capsule (Co 100 mg PO DAILY #90 cap 02/27/19 06/23/21 Rx Q-10) multivitamin with minerals 1 tab PO DAILY #90 tab 02/27/19 06/23/21 Rx carvedilol 6.25 mg tablet (Coreg) 6.25 mg PO BID #180 tab 10/18/20 06/23/21 Rx lisinopril 40 mg tablet 40 mg PO DAILY #90 tab 10/18/20 06/23/21 Rx warfarin 7.5 mg tablet 7.5 mg PO 6XWK #90 tab 11/29/20 06/20/21 Rx furosemide 20 mg tablet (Lasix) 20 mg PO DAILY tab 03/08/21 06/23/21 History warfarin 5 mg tablet 5 mg PO WK 05/14/21 06/23/21 History latanoprost 0.005 % eye drops 1 drp OPB HS 06/23/21 06/23/21 History Past Med/Surg History Medical History Altered level of consciousness Aortic valve disorder Asthma Atrial fibrillation Atrioventricular block, complete Brain aneurysm PT FOLLOWS CLOSELY WITH [facility] [place]. PT STATES THEY ARE CURRENTY WATCHING IT, BUT NO INTERVENTION AT THIS TIME. C. 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 Medicare annual wellness visit, subsequent Mitral valve disease Nausea Neoplasm of kidney Open wound, hand Renal carcinoma Rheumatic heart disease Type 2 diabetes mellitus Surgical History History of cholecystectomy History of colonoscopy History of esophagogastroduodenoscopy (EGD) History of eye surgery FOR INCREASED EYE PRESSURE/DOUBLE VISION History of heart valve replacement AORTIC VALVE REPLACEMENT (TOTAL 3 SURGERIES) History of herniorrhaphy History of hysterectomy History of tonsillectomy History of tricuspid valve annuloplasty S/P aortic valve replacement History of 3 aortic valve replacements S/P mitral valve replacement Family History Other Heart disease Hypertension Social History Smoking Status: Never smoker Second Hand Exposure: No; Hx Alcohol Use: No Hx Substance Use: No Preferred Language: Peruvian Communication Ability: Effective Electrician Technician Required: No Beliefs That Will Affect Care: None marital status: / Current Living Situation: Alone Current Living Situation Comment: [facility] Feels Safe at Home: Yes Safety Concerns: Feels Safe At This Time Childhood Exposure to Second-Hand Smoke: Yes Seatbelt Use: always Sunscreen Use: No Assistive Devices: Cane, Glasses and Oxygen - Continuous Review of Systems Review of Systems: All systems reviewed & are unremarkable except as noted in HPI & below Constitutional: + fatigue, + weakness and + weight loss Respiratory: + cough and + dyspnea on exertion Gastrointestinal: + nausea and + diarrhea/loose stools (occasional chronic, no acute owrsening); no heartburn, no pain with swallowing, no dysphagia, no change in stools, no constipation, no blood in stools and no melena Musculoskeletal: + muscle weakness; no joint pain and no myalgia Integumentary: no problem reported Physical Exam Constitutional: + frail appearing; + not well nourished and no acute distress Eyes: + anicteric sclerae; normal pupil size ENMT: external ear and nose normal, oropharynx normal Respiratory: normal respiratory effort; no respiratory distress Auscultation: + diminished lung sounds (bibasal); no crackles and no wheezes Cardiovascular: Rate/Rhythm: regular rate and regular rhythm Heart Sounds: + murmur (3/6 systolic LUSB) Gastrointestinal (Abdomen): normal bowel sounds, soft, nontender, no hepatosplenomegaly Musculoskeletal: no cyanosis or clubbing, extremities motor strength 5/5 Skin: no rashes, warm and dry Neurologic: moves all extremities and awake; no focal motor deficits (no lateralizing) and not confused Psychiatric: A+Ox3, euthymic affect Results & Data Results & Data ([facility]) Vital Signs (Past 12 Hours) Vital Signs Temp Pulse Pulse Resp BP BP Pulse Ox 06/23/21 17:44 61 20 101/67 94 06/23/21 16:57 91 06/23/21 16:55 20 91 06/23/21 16:54 62 20 106/64 91 06/23/21 14:00 36.8 C 63 18 105/71 95 Diagnostic Findings XR chest 1V portable HISTORY: 89 years-old Female SOB acute shortness of breath COMPARISON: Chest radiograph 03/08/2020 TECHNIQUE: Portable AP view of the chest FINDINGS: Cardiac silhouette is enlarged. Prior median sternotomy with cardiac valvular prosthesis. Single lead left subclavian pacer. Small right greater left pleural effusions with mild bibasilar opacities. Pulmonary vascular congestion with coarsening of the interstitium, progressed from prior. No pneumothorax. Degenerative changes of the shoulders and spine. Apparent cortical irregularity of the posterior right third rib is likely artifactual. Acute fracture considered less likely. IMPRESSION: 1. Cardiomegaly with pulmonary vascular congestion and interstitial coarsening suggestive of pulmonary edema. 2. Small layering pleural effusions with mild bibasilar opacities. CT abd pelvis wo con CLINICAL HISTORY: abdominal discomfort, sick to stomach COMPARISON STUDY: 11/19/2020 CT DOSE: 257.81 mGy.cm TECHNIQUE: Standard CT of the Abdomen and Pelvis was performed without IV contrast. The patient did not receive oral contrast. A dose lowering technique was utilized adhering to the principles of ALARA. FINDINGS: Lung base: There is again cardiomegaly with aortic and mitral valve surgery there is particular enlargement of the right atrium. There are increasing small bilateral pleural effusions, right greater left. There is compressive atelectasis at the right lung base. Abdominal cavity: There is no evidence for abdominal mass, adenopathy or abdominal ascites. Liver: The liver is homogeneous in attenuation on these limited noncontrast images.. Spleen: The spleen is homogeneous in attenuation on these limited noncontrast images. Pancreas: The pancreas is homogeneous in attenuation on these limited noncontrast images. Gall Bladder: The gallbladder is again absent. Adrenal glands: The adrenal glands are normal in size and attenuation on these limited noncontrast images. Kidneys: The kidneys are homogeneous in attenuation on these limited noncontrast images. Compared to previous examination, the study is limited as no contrast was utilized. There are exophytic lesions projecting from the superior pole of the left kidney along with an interbody lower pole left kidney. There is also an exophytic lesion projecting from the superior pole the right kidney which has appearance of a cyst. There is nonobstructing left lower pole renal calculus, unchanged. Indicated clinically, follow-up CT of the kidneys with contrast would be the study of choice for further evaluation of the kidneys. Bowel: There is evidence for small sliding-type hernia. The bowel loops are normally placed within the abdomen and pelvis without evidence for dilatation or obstruction. There is limited evaluation of the colon due to lack of oral contrast. There is evidence for diverticulosis of the sigmoid colon without evidence for diverticulitis. There are no inflammatory changes present. There is no evidence for free air. Bladder: There is no evidence for focal bladder wall thickening, calculus or diverticulum. : There is no evidence for pelvic mass or adenopathy. There is mild pelvic asc ites from unknown etiology. Vasculature: There is no evidence for focal aneurysmal dilatation of the abdominal aorta. Atherosclerotic calcification is present. Osseous structures: There is no acute osseous pathology. Extensive degenerative changes are seen involving the lumbar spine IMPRESSION: 1. Extensive sigmoid diverticulosis without evidence for diverticulitis. However, the colonic mucosa cannot be fully evaluated due to lack of oral contrast. 2. Exophytic lesions are again seen involving the kidneys as described above, left greater than right. There was suspicion of renal cell carcinoma the previous postcontrast study and this cannot be fully evaluated on this study as described. 3. No other evidence for acute intra-abdominal or pelvic abnormality. 4. Additional nonacute findings are delineated above. Medications Administered ER Medications Given: Ondansetron 4mg IV Q4H PRN Lasix 20mg IV ECG Rate (beats per minute): 63 Findings: + paced rhythm (ventricular) Comparison ECG Date: from (May 14, 2021) Change: the following changes noted (PVCs no longer present) Code Status & VTE Plan Code Status DNR/DNI VTE Prophylaxis Plan VTE Prophylaxis will be ordered: Yes PG Care Time/CCT Total # of Minutes Spent Total Time Spent with Patient: Total time spent is greater than 50% in coordination of care (as documented) at patient's floor/unit and/or counseling patient: Coding Level of Care Code 35545 Initial Inpt Care Lvl 3 Diagnoses CHF (congestive heart failure) I50.9 Heart failure chronicity: unspecified Heart failure type: unspecified History of dissection of thoracic aorta Z86.79 Goals of care, counseling/discussion Z71.89 Hypertension I10 Cardiac pacemaker Z95.0 Hypoxia R09.02 Atrial fibrillation I48.91 Nausea R11.0 (1) CHF (congestive heart failure) Heart failure chronicity: unspecified Heart failure type: unspecified Qualified Code(s): I50.9 - Heart failure, unspecified
[2021-06-23] MEDS ORDERED: FAMOTIDINE 20MG/5ML IV PUSH IV STA (18:10)
--- NOTE | 2021-06-23 20:37 | CT Scan Report ---
CT abd pelvis wo con CLINICAL HISTORY: abdominal discomfort, sick to stomach COMPARISON STUDY: 11/19/2020 CT DOSE: 257.81 mGy.cm TECHNIQUE: Standard CT of the Abdomen and Pelvis was performed without IV contrast. The patient did not receive oral contrast. A dose lowering technique was utilized adhering to the principles of MICHAEL Lin. FINDINGS: Lung base: There is again cardiomegaly with aortic and mitral valve surgery there is particular enla rgement of the right atrium. There are increasing small bilateral pleural effusions, right greater le ft. There is compressive atelectasis at the right lung base. Abdominal cavity: There is no evidence for abdominal mass, adenopathy or abdominal ascites. Liver: The liver is homogeneous in attenuation on these limited noncontrast images.. Spleen: The spleen is homogeneous in attenuation on these limited noncontrast images. Pancreas: The pancreas is homogeneous in attenuation on these limited noncontrast images. Gall Bladder: The gallbladder is again absent. Adrenal glands: The adrenal glands are normal in size and attenuation on these limited noncontrast im ages. Kidneys: The kidneys are homogeneous in attenuation on these limited noncontrast images. Compared to previous examination, the study is limited as no contrast was utilized. There are exophytic lesions p rojecting from the superior pole of the left kidney along with an interbody lower pole left kidney. T here is also an exophytic lesion projecting from the superior pole the right kidney which has appeara nce of a cyst. There is nonobstructing left lower pole renal calculus, unchanged. Indicated clinicall y, follow-up CT of the kidneys with contrast would be the study of choice for further evaluation of t he kidneys. Bowel: There is evidence for small sliding-type hernia. The bowel loops are normally placed within th e abdomen and pelvis without evidence for dilatation or obstruction. There is limited evaluation of t he colon due to lack of oral contrast. There is evidence for diverticulosis of the sigmoid colon with out evidence for diverticulitis. There are no inflammatory changes present. There is no evidence for free air. Bladder: There is no evidence for focal bladder wall thickening, calculus or diverticulum. : There is no evidence for pelvic mass or adenopathy. There is mild pelvic ascites from unknown dom ology. Vasculature: There is no evidence for focal aneurysmal dilatation of the abdominal aorta. Atheroscler otic calcification is present. Osseous structures: There is no acute osseous pathology. Extensive degenerative changes are seen invo lving the lumbar spine IMPRESSION: 1. Extensive sigmoid diverticulosis without evidence for diverticulitis. However, the colonic mucosa cannot be fully evaluated due to lack of oral contrast. 2. Exophytic lesions are again seen involving the kidneys as described above, left greater than right . There was suspicion of renal cell carcinoma the previous postcontrast study and this cannot be full y evaluated on this study as described. 3. No other evidence for acute intra-abdominal or pelvic abnormality. 4. Additional nonacute findings are delineated above. ACT 112: Negative or not required by law. Electronically signed by: Randal Rust M.D. 06/23/2021 8:35 PM
[2021-06-23] MEDS ORDERED: NITROGLYCERIN SL 0.4 MG/TAB TAB SL PRN (22:02)
[2021-06-23] MEDS: carvediloL 6.25 MG TAB PO SCH (22:44)
[2021-06-23] MEDS: LATANOPROST 0.005% OP SOLN 2.5 ML BTL OPB SCH (22:44)
[2021-06-23] MEDS: SACCHAROMYCES BOULARDII 250 MG CAP PO SCH (22:44)
--- NOTE | 2021-06-24 06:21 | Electrocardiogram Report ---
Test Reason : Blood Pressure : / mmHG Vent. Rate : 063 BPM Atrial Rate : 059 BPM P-R Int : 000 ms QRS Dur : 166 ms QT Int : 474 ms P-R-T Axes : 000 171 093 degrees QTc Int : 485 ms Ventricular-paced rhythm Abnormal ECG When compared with ECG of 14-MAY-2021 22:05, Premature ventricular complexes are no longer Present Vent. rate has increased BY 2 BPM Confirmed by Jesus Bartholomew ([id number]) on 06/24/2021 6:21:14 AM Referred By: Confirmed By:Jesus Bartholomew
--- NOTE | 2021-06-24 06:31 | Ultrasound Report ---
US venous doppler LE RT HISTORY: 89 years-old Female R calf swelling acute pain and swelling of the right lower leg COMPARISON: None TECHNIQUE: Multiple real-time sonographic images of the right lower extremity deep venous structures were obtained assessing grayscale appearance, color and spectral flow. FINDINGS: Normal flow, compressibility, phasicity and augmentation. IMPRESSION: No sonographic evidence of deep venous thrombosis. ACT 112: Negative or not required by law. The above report was generated using voice recognition software. It may contain grammatical, syntax o r spelling errors. Electronically signed by: Pj Kate M.D. 06/24/2021 6:30 AM
[2021-06-24 07:48] LABS: Basophils # (auto) 0.02 K/uL (0-0.2); Basophils % (auto) 0.3 %; Eosinophils # (auto) 0.01 K/uL (0-0.5); Eosinophils % (auto) 0.1 %; Hematocrit (blood only) 40.1 % (37-47); Hemoglobin 12.7 g/dL (12.0-16.0); Immature Granulocytes # (auto) 0.02 K/uL (0.00-0.02); Immature Granulocytes % (auto) 0.3 %; Lymphocytes # (auto) 1.01 K/uL (1.2-3.4); Lymphocytes % (auto) 12.9 %; Mean Corpuscular Hgb Conc 31.7 g/dL (32-36); Mean Corpuscular Volume 91.6 fL (80-100); Mean Platelet Volume 10.7 fL (7.4-10.4); Monocytes # (auto) 1.16 K/uL (0.11-0.59); Monocytes % (auto) 14.8 %; Neutrophils # (auto) 5.62 K/uL (1.4-6.5); Neutrophils % (auto) 71.6 %; Platelet Count 186 K/uL (130-400); RDW Coefficient of Variation 16.4 % (11.5-14.5); Red Blood Count 4.38 M/uL (4.2-5.4); White Blood Count 7.84 K/uL (4.8-10.8)
[2021-06-24 07:57] LABS: INR 2.6 (0.9-1.1); Prothrombin Time 24.3 Seconds (9.0-12.0)
[2021-06-24] MEDS: CEROVITE ADV FORMULA TAB PO SCH (08:21)
[2021-06-24] MEDS: SACCHAROMYCES BOULARDII 250 MG CAP PO SCH ×2 (08:21→21:09)
[2021-06-24] MEDS: carvediloL 6.25 MG TAB PO SCH ×2 (08:21→21:07)
[2021-06-24] MEDS: CALCIUM CARBONATE 1250MG TAB PO SCH (08:21)
[2021-06-24 08:25] LABS: BUN Creatinine Ratio 25.7 (10-20); Calcium 8.9 mg/dl (8.5-10.1); Creatinine Clr Calc Pharmacy 19.2 ml/min; Est GFR (African American) 32.3 ml/min; Est GFR (Non-African American) 27.8 ml/min; Potassium 4.6 mmol/L (3.5-5.1)
[2021-06-24] MEDS ORDERED: ONDANSETRON INJ 2 MG/ML 2 ML VIAL IV PRN (08:57)
[2021-06-24] MEDS ORDERED: FUROSEMIDE INJ 20 MG/2 ML VIAL IV SCH (09:00)
[2021-06-24] MEDS ORDERED: LOPERAMIDE HCL 2 MG CAP PO PRN (11:41)
[2021-06-24] MEDS ORDERED: ACETAMINOPHEN 325 MG TAB PO PRN (15:03)
--- NOTE | 2021-06-24 15:14 | Palliative Care Consultation ---
Date of Consultation June 24, 2021 Assessment & Plan (1) Palliative care encounter: I met with Mrs. Rocha and her son, Camila, at bedside. We talked about her reservations about hospice care. She tells me that she continues to have hope that she will get better but recognizes that she has been getting weaker. "My body is wearing out." She also had questions about how much hospice would cost. We talked about what is important to her and she would like to be able to stay in her cottage. She would like to be at home for her dying time. We discussed hospice to support her and manage symptoms so that she would be able to remain at home and be comfortable until her . We also discussed hospice as a medicare benefit which would be of no cost to her. Her son feels that this would be a good idea but Nellie continues to have some reservations. They will talk about it together as a family. She may benefit from home palliative care which would help her transition to hospice when appropriate if she is not comfortable with hospice at this time. Discussed with Dr. Polo. (2) Fatigue: with deconditioning and functional decline (3) Thoracic aortic dissection: (4) CHF (congestive heart failure): Heart failure chronicity: unspecified Heart failure type: unspecified Qualified Code(s): I50.9 - Heart failure, unspecified History of Present Illness Reason for Consultation: goals of care Requesting Physician: Dr. Ching Attending Physician: Prakash Vicente MD History of Present Illness 89 yo lady with history of valvular heart disease and heart failure who presented with shortness of breath and nausea. She has a known ascending aortic aneurysm with dissection. She is also followed by urology for renal mass. She has had decreased po intake with weight loss of 8lbs since October and current BMI of 18. She has also had functional decline with hospitalization 6 weeks ago for mental status change. She has had functional decline at home and lives in a cottage at [place] but had actually considered having to move to assisted living. She met with her PCP earlier this week and tells me that the subject of hospice was raised. At that time, she had reservations. She is awake and alert, complaining of generalized aching pain. She denies dyspnea or nausea at this time. 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 Verified 06/23/21 17:37 2004 Iodinated Contrast Media Allergy Severe Difficulty Verified 06/23/21 17:37 Breathing atorvastatin AdvReac Severe diarrhea Verified 06/23/21 17:37 and leg cramps metformin AdvReac Severe diarrhea Verified 06/23/21 17:37 pitavastatin AdvReac Severe joint Verified 06/23/21 17:37 pain, diarrhea ezetimibe AdvReac Intermediate myalgias, Verified 06/23/21 17:37 increased LFT simvastatin AdvReac Intermediate myalgias, Verified 06/23/21 17:37 increased LFTs Home Medications Medication Instructions Recorded Confirmed Type Saccharomyces boulardii 250 mg 250 mg PO BID #180 cap 02/27/19 06/23/21 Rx capsule (Florastor) calcium carbonate 500 mg calcium 500 mg PO DAILY #90 tab 02/27/19 06/23/21 Rx (1,250 mg) tablet (Calcium 500) coenzyme Q10 100 mg capsule (Co 100 mg PO DAILY #90 cap 02/27/19 06/23/21 Rx Q-10) multivitamin with minerals 1 tab PO DAILY #90 tab 02/27/19 06/23/21 Rx carvedilol 6.25 mg tablet (Coreg) 6.25 mg PO BID #180 tab 10/18/20 06/23/21 Rx lisinopril 40 mg tablet 40 mg PO DAILY #90 tab 10/18/20 06/23/21 Rx warfarin 7.5 mg tablet 7.5 mg PO 6XWK #90 tab 11/29/20 06/20/21 Rx furosemide 20 mg tablet (Lasix) 20 mg PO DAILY tab 03/08/21 06/23/21 History warfarin 5 mg tablet 5 mg PO WK 05/14/21 06/23/21 History latanoprost 0.005 % eye drops 1 drp OPB HS 06/23/21 06/23/21 History Patient History Medical History Altered level of consciousness Aortic valve disorder Asthma Atrial fibrillation Atrioventricular block, complete Brain aneurysm PT FOLLOWS CLOSELY WITH [facility]. PT STATES THEY ARE CURRENTY WATCHING IT, BUT NO INTERVENTION AT THIS TIME. C. 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 Lab test negative for COVID-19 virus care home (current) use of anticoagulants Medicare annual wellness visit, subsequent Mitral valve disease Nausea Neoplasm of kidney Open wound, hand Renal carcinoma Rheumatic heart disease Type 2 diabetes mellitus Surgical History History of cholecystectomy History of colonoscopy History of esophagogastroduodenoscopy (EGD) History of eye surgery FOR INCREASED EYE PRESSURE/DOUBLE VISION History of heart valve replacement AORTIC VALVE REPLACEMENT (TOTAL 3 SURGERIES) History of herniorrhaphy History of hysterectomy History of tonsillectomy History of tricuspid valve annuloplasty S/P aortic valve replacement History of 3 aortic valve replacements S/P mitral valve replacement Family History Other Heart disease Hypertension Social History Smoking Status: Never smoker Second Hand Exposure: No; Hx Alcohol Use: No Hx Substance Use: No Preferred Language: Croatian Communication Ability: Effective Software Development Analyst Required: No Beliefs That Will Affect Care: None marital status: Current Living Situation: Alone Current Living Situation Comment: [facility] How many Children do You have: 2 Feels Safe at Home: Yes Safety Concerns: Feels Safe At This Time Childhood Exposure to Second-Hand Smoke: Yes Seatbelt Use: always Sunscreen Use: No Assistive Devices: Cane, Glasses and Oxygen - Continuous Review of Systems Review of Systems: [place] Symptom Assessment Scale Pain 1/3 Dyspnea 0/3 Anxiety 1/3 Fatigue 2/3 Nausea 0/3 Drowsiness 0/3 Palliative Performance Score 50% Physical Exam Constitutional: + frail appearing; no acute distress Respiratory: normal respiratory effort; no labored breathing Cardiovascular: Extremities: no edema Gastrointestinal (Abdomen): nondistended Musculoskeletal: Extremities: + muscle atrophy Neurologic: moves all extremities and awake; not confused Results & Data ([facility]) Vital Signs (Past 12 Hours) Vital Signs Temp Pulse Pulse Pulse Resp BP BP 06/24/21 11:30 97.9 F 06/24/21 11:21 70 18 110/70 06/24/21 10:05 60 06/24/21 07:29 98.8 F 60 20 87/58 L 06/24/21 05:07 97.7 F 60 20 90/57 L Pulse Ox 06/24/21 11:30 06/24/21 11:21 94 06/24/21 10:05 06/24/21 07:29 97 06/24/21 05:07 96 PG Care Time/CCT Total # of Minutes Spent Total Time Spent: 60 Total Time Spent with Patient: Total time spent is greater than 50% in coordination of care (as documented) at patient's floor/unit and/or counseling patient: goals of care, hospice, patient and family education and support Coding Level of Care Code 51514 Initial Inpt Care Lvl 2 Diagnoses Palliative care encounter Z51.5 Fatigue R53.83 Thoracic aortic dissection I71.01 CHF (congestive heart failure) I50.9 Heart failure chronicity: unspecified Heart failure type: unspecified
[2021-06-24] MEDS ORDERED: WARFARIN SOD 5 MG TAB PO SCH (16:00)
[2021-06-24] MEDS: SODIUM CHLORIDE 0.9% 500 ML IV SCH ×2 (16:51→23:27)
--- NOTE | 2021-06-24 16:52 | Hospitalist Progress Note ---
Date of Service June 24, 2021 Assessment & Plan (1) Goals of care, counseling/discussion: Plan: Met with her and her son at bed line. They also met with palliative care this afternoon. Discussion hospice/palliative care they agree that she would benefit from palliative care and would consider hospice in the future. Discussed hospice qualifications, services offered, and quality versus quantity of life benefits. Patient reports she would like to be home at the end of her life, and understands that she is medically frail. Son with some reservations, would like to think about this further. (2) CHF (congestive heart failure): Plan: Admitted with acute shortness of breath following a shower Lasix 20 given in ER, and following day Patient with elevated creatinine, hypotensive following second dose of Lasix Gentle to 250-500 cc fluid back. Defer additional Lasix Patient has very narrow wet/dry margin Pursuing palliative care goals on discharge Do not know if this recommend aggressive cardiac work-up not consistent with goals of care at this time (3) Hypoxia: Plan: Aim O2 sats > 90% (4) Nausea: Plan: Ondansetron 4mg IV q4h PRN Nill acute on CT A/P Patient reports this problem is chronic but son concerned about worsening appetite over the last few days. (5) History of dissection of thoracic aorta: Plan: Non-operable (6) Hypertension: Plan: Hold lisinopril given relative hypotension Lasix as above (7) Cardiac pacemaker: Plan: Noted. Secondary to prior CHB (8) Atrial fibrillation: Plan: Continue warfarin for anticoagulation Rate controlled on carvedilol with hold parameters - consider switch to metoprolol if hypotension continues Plan: VTE Prophylaxis - INR within 2-3 range Diet - Low Na, heart healthy Disposition - admit med/tele Admission and Anticipated Discharge Date Admission Date: June 23, 2021 Subjective Patient is seen at the bedside this afternoon. Met with her and her son at bed line. They also met with palliative care this afternoon. Discussion hospice/palliative care they agree that she would benefit from palliative care and would consider hospice in the future. Discussed hospice qualifications, services offered, and quality versus quantity of life benefits. Patient reports she would like to be home at the end of her life, and understands that she is medically frail. Son with some reservations, would like to think about this further. Patient with uptrending creatinine following Lasix, has a very narrow dry/wet margin. Hypotensive, will observe overnight and give to 250 cc fluid back and encourage orals and recheck in morning. Likely plan to discharge home with palliative services, will and possible transition to hospice once home. Review of Systems Review of Systems: Constitutional: Denies fever, chills. Eyes: Denies vision change ENT: Denies ear pain, sore throat, sinus pain Cardiovascular: Denies Chest pain, chest pressure, palpitations, extremity swelling Respiratory: Denies shortness of breath, cough, sputum production, difficulty breathing at time of assessment. Gastrointestinal: Denies abdominal pain, nausea, vomiting, constipation, diarrhea Genitourinary: Denies dysuria, urinary frequency Musculoskeletal: Endorses right shoulder, back, and diffuse joint aches slightly improved with Tylenol. Integumentary:Denies acute rash, lesions, bruising Neurological: Denies headache, numbness, tingling, focal weakness Physical Exam Physical Exam: General: A&Ox3. Frail, appears chronically ill. HEENT: Atraumatic, normocephalic. Pulm: Diminished. -wheezes, -rales, -rhonchi. Symmetrical chest rise. No increase work of breathing. No respiratory distress. Cardiac: RRR, systolic murmur present Radial pulses intact and symmetrical. Abdominal: Nontender, nondistended, soft. BS present. Extremities: Thin, atraumatic. Sensation in hands and feet intact. Cycle Specialist strength grossly intact. Results & Data Results & Data ([facility]) Vital Signs (Past 12 Hours) Vital Signs Temp Pulse Pulse Pulse Resp BP BP 06/24/21 15:38 61 06/24/21 15:23 36.5 C 61 20 84/57 L 06/24/21 11:30 36.6 C 06/24/21 11:21 70 18 110/70 06/24/21 10:05 60 06/24/21 07:29 37.1 C 60 20 87/58 L 06/24/21 05:07 36.5 C 60 20 90/57 L Pulse Ox 06/24/21 15:38 06/24/21 15:23 90 06/24/21 11:30 06/24/21 11:21 94 06/24/21 10:05 06/24/21 07:29 97 06/24/21 05:07 96 PG Care Time/CCT Total # of Minutes Spent Total Time Spent with Patient: Total time spent is greater than 50% in coordination of care (as documented) at patient's floor/unit and/or counseling patient: Coding Level of Care Code 51311 Subseq Hosp Care Lvl 2 Diagnoses Goals of care, counseling/discussion Z71.89 CHF (congestive heart failure) I50.9 Heart failure chronicity: unspecified Heart failure type: unspecified Hypoxia R09.02 Nausea R11.0 History of dissection of thoracic aorta Z86.79 Hypertension I10 Cardiac pacemaker Z95.0 Atrial fibrillation I48.91 (1) CHF (congestive heart failure) Heart failure chronicity: unspecified Heart failure type: unspecified Qualified Code(s): I50.9 - Heart failure, unspecified
[2021-06-24] MEDS: LATANOPROST 0.005% OP SOLN 2.5 ML BTL OPB SCH (21:09)
[2021-06-25] MEDS: SODIUM CHLORIDE 0.9% 500 ML IV SCH (05:01)
[2021-06-25] MEDS: SACCHAROMYCES BOULARDII 250 MG CAP PO SCH (08:47)
[2021-06-25] MEDS: CEROVITE ADV FORMULA TAB PO SCH (08:47)
[2021-06-25] MEDS: carvediloL 6.25 MG TAB PO SCH (08:47)
[2021-06-25] MEDS: CALCIUM CARBONATE 1250MG TAB PO SCH (08:48)
[2021-06-25 10:25] LABS: BUN Creatinine Ratio 19.8 (10-20); Calcium 8.3 mg/dl (8.5-10.1); Creatinine Clr Calc Pharmacy 10.7 ml/min; Est GFR (African American) 15.6 ml/min; Est GFR (Non-African American) 13.5 ml/min; Potassium 4.8 mmol/L (3.5-5.1)
--- NOTE | 2021-06-25 13:23 | Discharge Summary ---
Date of Service June 25, 2021 Admission HPI Per Admitting Provider Nellie Bernard is an 89 year old female who presents to the ER with shortness of breath after having a shower today. She reports feeling better from this but is currently requiring 2LPM O2 in the ER. She also has a number of ongoing concerns and finds it difficult to tell me what is chronic or acute. Her son at bedside is mostly concerned about her ongoing nausea and decreased appetite which appears worse over the past few days. He moved in with her at the end of May and since then has also had a worsening cough although the patient feels she always has the same cough. She was recently diagnosed with a descending thoracic aneurysm on May 15 which was discussed with [facility] surgery and decided it is non-operable. There was some discussion regarding transition to hospice care but both the patient and son are unsure what this would look like or involve. She wishes to be admitted at this time for optimization of her breathing but her son is more concerned about her eating and nausea. In the ER CXR concerning for pulmonary edema. SARS-COV-2 negative. She is requiring 2LPM O2 to maintain O2 sats > 90%. She was referred to medicine for admission and ongoing management of CHF exacerbation. Admission Exam Per Admitting Provider Constitutional: + frail appearing; + not well nourished and no acute distress Eyes: + anicteric sclerae; normal pupil size ENMT: external ear and nose normal, oropharynx normal Respiratory: normal respiratory effort; no respiratory distress Auscultation: + diminished lung sounds (bibasal); no crackles and no wheezes Cardiovascular: Rate/Rhythm: regular rate and regular rhythm Heart Sounds: + murmur (3/6 systolic LUSB) Gastrointestinal (Abdomen): normal bowel sounds, soft, nontender, no hepatosplenomegaly Musculoskeletal: no cyanosis or clubbing, extremities motor strength 5/5 Skin: no rashes, warm and dry Neurologic: moves all extremities and awake; no focal motor deficits (no lateralizing) and not confused Psychiatric: A+Ox3, euthymic affect Principal Diagnosis CHF BARBI Protein calorie malnutrition Discharge Exam General: A&Ox3. Frail, appears chronically ill. HEENT: Atraumatic, normocephalic. Pulm: Diminished. -wheezes, -rales, -rhonchi. Symmetrical chest rise. No increase work of breathing. No respiratory distress. Cardiac: RRR, systolic murmur present Radial pulses intact and symmetrical. Abdominal: Nontender, nondistended, soft. BS present. Extremities: Thin, atraumatic. Sensation in hands and feet intact. 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 Verified 06/23/21 17:37 2004 Iodinated Contrast Media Allergy Severe Difficulty Verified 06/23/21 17:37 Breathing atorvastatin AdvReac Severe diarrhea Verified 06/23/21 17:37 and leg cramps metformin AdvReac Severe diarrhea Verified 06/23/21 17:37 pitavastatin AdvReac Severe joint Verified 06/23/21 17:37 pain, diarrhea ezetimibe AdvReac Intermediate myalgias, Verified 06/23/21 17:37 increased LFT simvastatin AdvReac Intermediate myalgias, Verified 06/23/21 17:37 increased LFTs Consultations 06/23/21 17:13 ED Decision to Admit Stat 06/23/21 22:02 Consult Palliative Care Routine Ordered Studies 06/23/21 17:13 CT abd pelvis wo con Stat 06/23/21 22:30 US venous doppler LE RT Urgent Hospital Course (1) Goals of care, counseling/discussion: Nellie is an 89-year-old female with multiple medical comorbidities including CHF, protein calorie malnutrition, known aneurysms which are not a candidate for surgical intervention who presented with a CHF exacerbation. During admission her breathing improved with Lasix treatment, however her kidney function worsened. Gentle fluids for her kidney function quickly produced worsening breathing. Palliative and hospice had been discussed with the patient at prior admission, this was revisited especially as treatments for her CHF are likely to worsen her kidneys and vice versa. Discussed this with the patient and both of her sons, and opted to discharge home with hospice enrollment on day of discharge. Patient cited that it was important for her to be home at the end of her life, and she understands she is medically frail. (2) CHF (congestive heart failure): Admitted with acute shortness of breath following a shower Lasix 20 given in ER, and following day Patient with elevated creatinine, gentle 100 cc/h fluids quickly produced worsened breathing Patient has very narrow wet/dry margin Pursuing hospice on discharge aggressive cardiac work-up not consistent with goals of care at this time (3) Hypoxia: Aim O2 sats > 90% (4) Nausea: Ondansetron 4mg IV q4h PRN No acute findings on CT A/P Patient reports this problem is chronic but son concerned about worsening appetite over the last few days. (5) History of dissection of thoracic aorta: Non-operable (6) Hypertension: Hold lisinopril given relative hypotension Lasix as above (7) Cardiac pacemaker: Noted. Secondary to prior CHB (8) Atrial fibrillation: Continue warfarin for anticoagulation Rate controlled on carvedilol VTE Prophylaxis - INR within 2-3 range Diet - Low Na, heart healthy Disposition - admit med/tele Total Time Total Time Spent Total Time Spent (In Minutes): Total time spent day of discharge including direct patient care, coordination of care, review of labs and images, and documentation 1 hour. Discharge Plan Discharge Items Patient Disposition: Hospice - Home Reason For Visit: ACUTE CHF Discharge Diagnosis: Acute CHF Activity: Per Instructions section Non-emergency contact: Primary Care Provider Call non-emergency contact if: you have any medication questions, your symptoms worsen, your pain is not controlled and you have a fever Follow-up/Referrals: Eusebio Gipson MD [Primary Care Provider] - Diet: Regular Addtl Attending Provider Instructions: You are seen in the hospital for shortness of breath due to a CHF exacerbation. You were treated with fluid medications with improvement in your breathing. While your breathing improved, your kidney numbers elevated. You were treated with gentle fluids to assist in improving the kidney numbers, but this caused worsening of your breathing. Due to your chronic medical conditions, including your CHF, known aneurysms, and delicate kidneys it is highly likely that treatments in the future for kidney injury including fluid would cause you to feel poorly with additional shortness of breath, but that treatments for your CHF and shortness of breath would likely harm your kidneys and cause kidney injury. Due to your chronic medical condition aggressive interventions were more likely to harm you, and could result in you becoming seriously ill or too ill to leave the hospital. This was discussed with you and both of your sons during admission. On shared decision making, decided to pursue hospice with symptomatic treatment. You are being discharged home with enrollment in hospice services. They can provide treatments such as Lasix as needed, oxygen as needed, and medications to treat pain and shortness of breath. You have also been discharged with home oxygen as needed for comfort. You may continue to follow-up with your primary care provider. An appointment is being scheduled as above with Dr. Gipson. If you do not hear regarding an appointment, please call his office at the number above. If you develop any new or worsening symptoms including fever, chills, sweats, chest pain, chest pressure, difficulty breathing, uncontrolled nausea/vomiting, rash, wheezing, passing out or nearly passing out, bleeding, black/bloody bowel movements, or other new or concerning symptoms please call your primary care physician or hospice provider Pending Studies at Discharge: No Stand-Alone Forms: [facility] Medications and DC Order Prescriptions: Continued carvedilol [Coreg] 6.25 mg tablet 6.25 mg PO BID Qty: 180 RF: 3 warfarin 7.5 mg tablet 7.5 mg PO 6XWK Qty: 90 RF: 3 calcium carbonate [Calcium 500] 500 mg calcium (1,250 mg) tablet 500 mg PO DAILY Qty: 90 RF: 3 coenzyme Q10 [Co Q-10] 100 mg capsule 100 mg PO DAILY Qty: 90 RF: 3 Florastor 250 mg capsule 250 mg PO BID Qty: 180 RF: 3 multivitamin with minerals tablet 1 tab PO DAILY Qty: 90 RF: 3 warfarin 5 mg tablet 5 mg PO WK RF: 0 latanoprost 0.005 % drops 1 drp OPB HS RF: 0 Changed furosemide [Lasix] 20 mg tablet 20 mg PO DAILY PRN (Reason: Shortness of breath/leg swelling) Qty: 0 RF: 0 Discontinued lisinopril 40 mg tablet 40 mg PO DAILY Qty: 90 RF: 3 Discharge Orders: Discharge Order (Routine); Ordered 06/25/21 Ordered By: Prakash Vicente Admission Data Admit Date/Time: 06/23/21 20:42 Attending Provider: Prakash Vicente Admit Provider: Dawit Ching Primary Care Provider: Eusebio Gipson Other Providers: Dawit Ching ; Martha Woodall ; [facility],Hospice Coding Level of Care Code D/C DAY MANAGEMENT >30 MINS Diagnoses Goals of care, counseling/discussion Z71.89 CHF (congestive heart failure) I50.9 Heart failure chronicity: unspecified Heart failure type: unspecified Hypoxia R09.02 Nausea R11.0 History of dissection of thoracic aorta Z86.79 Hypertension I10 Cardiac pacemaker Z95.0 Atrial fibrillation I48.91
[2021-06-25] MEDS ORDERED: WARFARIN SOD 7.5 MG TAB PO SCH (16:00)
--- NOTE | 2021-07-01 07:49 | Coding Query ---
CONGESTIVE HEART FAILURE To Promote full compliance with coding requirements relating to patient care, physician participation is requested in all cases of oracle obiee developer uncertainty. Please assist us with the following questions. A diagnosis of Congestive Heart Failure is documented in the patient's medical record. To accurately code this diagnosis and to compare patient severity, we ask that you specify the type of heart failure by placing an X within the parenthesis (x). SYSTOLIC HEART FAILURE ( ) Acute ( ) Chronic ( x) Acute on Chronic ( ) Rheumatic ( ) Unknown DIASTOLIC HEART FAILURE ( ) Acute ( ) Chronic ( ) Acute on Chronic ( ) Rheumatic () Unknown COMBINED SYSTOLIC AND DIASTOLIC HEART FAILURE ( ) Acute ( ) Chronic ( ) Acute on Chronic ( ) Rheumatic ( Unknown Was the CHF Present On Admission? Please check the appropriate box: ( X) Present on Admission ( ) Not Present On Admission () Clinically undetermined Thank you for your time, ERICKA Elias, [facility] CENTERNathalie
--- NOTE | 2021-07-01 07:51 | Coding Query ---
MALNUTRITION To promote full compliance with coding requirements relating to patient care, physician participation is requested in all cases of cpc coder uncertainty. Please assist us with the question(s) below: Please place an X within the parenthesis (x). If other, please document: "Protein calorie malnutrition" is documented in this record. If possible, please check the box that provides a more specific diagnosis: ( ) Mild protein calorie malnutrition ( ) Moderate protein calorie malnutrition (x ) Severe protein calorie malnutrition ( ) Protein calorie malnutrition, unspecified ( ) Other (please specify): Was this diagnosis present on admission? Please place an X within the parenthesis (x). ( x) Present on admission ( ) Not present on admission ( ) Unable to be clinically determined Thank you for your time, ERICKA Elias, [facility]
== END 2021-06-25 17:17 | disposition hospice, home (50) | DRG 291 ==
LOC: ED 13:39 → 2N 20:42 → SUATTDRO 20:42 → 2N 21:41